=== PATIENT | female | born 1945 | race Caucasian/White ===

== ENCOUNTER 2021-02-14 03:28 | Inpatient (IN) | payer MEDICARE, SELFPAY ==
[2021-02-14] VITALS (24 sets, daily range): BP systolic 113–158; BP diastolic 56–85; PULSE 63–86; RESP 12–24; TEMP 36–37.4; O2SAT 94–100; BMI 24.0
--- NOTE | ~2021-02-14 | FL_ITS ---
EXAMINATION: XR FLUOROSCOPY WITH IMAGES CLINICAL INFORMATION: Left hip fracture COMPARISON: Left hip x-ray from earlier the same day TECHNIQUE: Fluoroscopy performed by Dr. Zamora Instremmanuel. Fluoroscopy time: 2.5 minutes DAP: 1.7 mGycm2 Images: 2 FINDINGS: Fluoroscopy guidance was provided for ORIF of left femoral neck fracture. There are 3 new orthopedic screws in the left proximal femur. Fracture appears unchanged. FL/FL guidance in OR IMPRESSION: Fluoroscopy guidance for ORIF of left femoral neck fracture.
--- NOTE | ~2021-02-14 | XR_ITS ---
EXAMINATION: XR LEFT HIP WITH AP PELVIS CLINICAL INFORMATION: Hip pain. COMPARISON: CT dated 08/31/2019 TECHNIQUE: AP and cross-table lateral views of the left hip and an AP view of the pelvis. FINDINGS: There is a valgus impacted subcapital fracture of the left femoral neck. Bones are osteopenic. No additional fractures are identified. Hip joints appear relatively well-preserved. Pubic symphysis and SI joints are unremarkable. Status post L5-S1 posterior instrumented fusion and interbody fusion. Soft tissues are unremarkable. XR/XR hip LT w PEL1V IMPRESSION: Valgus impacted subcapital left femoral fracture
--- NOTE | 2021-02-14 04:03 | ECG_ITS ---
Test Reason : FALL Blood Pressure : / mmHG Vent. Rate : 075 BPM Atrial Rate : 075 BPM P-R Int : 138 ms QRS Dur : 084 ms QT Int : 416 ms P-R-T Axes : 076 017 -03 degrees QTc Int : 464 ms Sinus rhythm with frequent Premature ventricular complexes Nonspecific ST abnormality Abnormal ECG When compared with ECG of 20-JUL-2017 16:32, Premature ventricular complexes are now Present Premature atrial complexes are no longer Present Referred By: Duane Diallo Electronically Signed By:Maxim Fitzgerald
[2021-02-14 04:10] LABS: Basophils Percent Auto 0.3 % (0-2); Eosinophils Absolute Auto 0.1 X10*3/uL (0.0-0.4); Eosinophils Percent Auto 0.8 % (0-4); Hematocrit 31.3 % (37-47); Hemoglobin 9.2 g/dl (12.0-16.0); Imm Gran Abs Auto 0.05 X10*3/uL (0.00-0.03); Imm Gran Pct Auto 0.6 % (0.0-0.4); Lymphocytes Absolute Auto 1.3 X10*3/uL (1.2-4.9); Lymphocytes Percent Auto 14.4 % (20-40); MANUAL DIFF FLAG NO; Mean Corpuscular HGB Conc 29.4 g/dl (31.0-35.0); Mean Corpuscular Hemoglobin 23.9 pg (27.0-33.0); Mean Corpuscular Volume 81.3 fL (80-98); Mean Platelet Volume 9.7 fL (9.4-12.3); Monocytes Absolute Auto 0.4 X10*3/uL (0.1-1.2); Monocytes Percent Auto 4.1 % (2-11); Neutrophils Absolute Auto 7.2 X10*3/uL (2.0-8.3); Neutrophils Percent Auto 79.8 % (45-73); Platelet Count 194 X10*3/uL (160-400); Red Blood Count 3.85 X10*6/uL (4.20-5.50); Red Cell Distribution Width 15.8 % (11.0-16.0); White Blood Count 9.1 X10*3/uL (4.8-10.8)
--- NOTE | 2021-02-14 04:10 | ED.GENADULT ---
HPI - General Adult General Chief complaint: General Medical Stated complaint: Left hip pain Time Seen by Provider: 02/14/21 03:59 Source: patient Mode of arrival: EMS Limitations: no limitations History of Present Illness HPI narrative: 75-year-old female who presents emergency department for evaluation of a fall and left hip pain. Patient states that she went to the bathroom around 2:00 a.m.. She states she was washing her hands at the sink and then turned and lost her balance causing her to fall to the floor. She landed on her left hip and developed immediate pain. She states she dragged herself out of the bathroom and was able to call her for help. She was unable to stand secondary to pain in her left hip and was transported to the emergency department for evaluation. Here in the emergency department, she denied any head injury or loss of consciousness. She states that her left shoulder hurts from dragging her body across the floor. She is complaining of severe, constant, sharp pain in the left hip which is worse with movement. She denied being ill in any way prior to falling. 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 Related Data Home Medications Medication Instructions Recorded Confirmed atorvastatin 1 tab PO DAILY 02/14/21 02/14/21 gabapentin 300 mg PO QD-TID 02/14/21 02/14/21 losartan 1 tab PO DAILY 02/14/21 02/14/21 metoprolol succinate 1 tab PO DAILY 02/14/21 02/14/21 omeprazole 1 cap PO BID 02/14/21 02/14/21 tramadol 1 tab PO 5XD 02/14/21 02/14/21 zolpidem 1 tab PO BEDTIME PRN 02/14/21 02/14/21 Allergies Allergy/AdvReac Type Severity Reaction Status Date / Time No Known Allergies Allergy Unverified 05/10/20 15:19 Review of Systems Review of Systems: Yes all other systems are reviewed and are negative [facility] Past Medical History [facility] Narrative: Social history: 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 She denies tobacco, alcohol and drug use. Medical History (Updated 02/14/21 @ 05:13 by Johana Warren) Cecum cancer Cervical pain (neck) High cholesterol Hypertension Lumbar back pain with radiculopathy affecting lower extremity Neuropathy Surgical History History of cervical spinal surgery History of lumbar surgery Social History Social History Alcohol intake: current Smoked in Last 30 Days: No Use of substances other than those prescribed or required for medical reasons: No Advance Directives: No Advance Directives Information Provided: No Physical Exam Vital Signs: Vital Signs: Last Vital Signs Temp 98.3 F 02/14/21 04:56 Pulse 76 02/14/21 04:56 Resp 18 02/14/21 04:56 BP 131/70 02/14/21 04:56 Pulse Ox 94 02/14/21 03:30 Body Mass Index 24.0 Const: General: cooperative Nutritional Appearance: overweight Orientation/consciousness: oriented to person and oriented to place Limitations: no limitations HENMT: Head: Yes normal to inspection, Yes normocephalic and Yes atraumatic Ears: external ears normal General nose exam: Normal external nose present Face and sinus: Yes normal facial exam Mouth: Normal oral and palatal mucosa present Throat: Yes posterior oropharynx normal Eyes: Periorbital: periorbital findings normal Eyelids: Yes eyelids normal Conjunctivae: conjunctivae normal Sclerae: sclerae normal Corneas: corneas normal Pupils: Equal, round and reactive pupils present Direct Ophthalmoscopy: normal light reflex Neck: Neck: Yes full ROM, Yes no lymphadenopathy, Yes no meningeal signs, Yes trachea midline and Yes supple Chest: Chest palpation & inspection: normal inspection of the chest and normal palpation of entire chest wall Resp: Effort & Inspection: normal respiratory effort and able to speak in complete sentences Auscultation: clear to auscultation bilaterally Cardio: Rate: regular rate Rhythm: regular rhythm Heart sounds: S1 normal heart sound present, S2 normal heart sound present and no murmurs GI: Inspection: Yes normal to inspection Palpation (GI): Soft to palpation, nontender, no guarding, not rigid and No hepatosplenomegaly present : General: Yes no CVA tenderness Back/Spine/Pelvis: Back: no CVA tenderness Cervical Spine: normal cervical lordosis Thoracic/Lumbar Spine: thoracic and lumbar spine normal to inspection Skin: Lesions: no lesions Rashes: no rashes Wounds: no wounds Neuro: General: oriented to person, oriented to place and no meningeal signs Cranial nerves: Yes CN's II-XII intact bilaterally and Yes Equal, round and reactive pupils present Cognition (Neuro): normal cognition Motor exam (neuro): 5/5 motor strength present throughout Extrem: Other: The patient has significant pain with minimal movement of her left hip, her hip is neurovascular intact Psych: Appearance: well kempt Mental Status: mental status grossly normal Speech and movement: Normal speech and movement present Affect: normal affect Attitude: cooperative Thought process: Normal thought process present Thought content: Normal thought content present Course Course Course Narrative: 75-year-old female who presents emergency department for evaluation of a fall that occurred in her bathroom. Patient reports losing her balance and fall onto the floor. She then dragged herself are the bathroom in order to call her . Here in the emergency department the patient has significant pain with minimal movement of her left hip. I did order a laboratory evaluation to include a CBC, CMP, PT/INR, PTT, EKG, left hip x-ray. Patient was ordered to get morphine 4 mg IV for pain. 0550: The patient required more pain medication. She got morphine 4 mg IV and Dilaudid 0.5 mg IV. Patient's laboratory evaluation revealed anemia with an H&H of 9.2 and 31.3. I did discuss the patient's presentation with the physician neurology physician assistant covering the orthopedic service, Ayaz Clark who will consult on the patient and requested that the patient be admitted to the hospitalist service. I will discuss the patient's presentation with the hospitalist. Medical Decision Making Lab Data Result diagrams: 02/14/21 04:00 02/14/21 04:00 Labs: Lab Results 02/14/21 02/14/21 02/14/21 Range/Units 04:00 04:00 04:00 WBC 9.1 (4.8-10.8) X10*3/uL RBC 3.85 L (4.20-5.50) X10*6/uL Hgb 9.2 L (12.0-16.0) g/dl Hct 31.3 L (37-47) % MCV 81.3 (80-98) fL MCH 23.9 L (27.0-33.0) pg MCHC 29.4 L (31.0-35.0) g/dl RDW 15.8 (11.0-16.0) % Plt Count 194 (160-400) X10*3/uL MPV 9.7 (9.4-12.3) fL Immature Gran % (Auto) 0.6 H (0.0-0.4) % Neut % (Auto) 79.8 H (45-73) % Lymph % (Auto) 14.4 L (20-40) % [place] % (Auto) 4.1 (2-11) % Eos % (Auto) 0.8 (0-4) % Baso % (Auto) 0.3 (0-2) % Lymph # (Auto) 1.3 (1.2-4.9) X10*3/uL [place] # (Auto) 0.4 (0.1-1.2) X10*3/uL Eos # (Auto) 0.1 (0.0-0.4) X10*3/uL Baso # (Auto) 0.0 (0.0-0.2) X10*3/uL Abs Immat Gran (auto) 0.05 H (0.00-0.03) X10*3/uL Absolute Neuts (auto) 7.2 (2.0-8.3) X10*3/uL Absolute Nucleated RBC 0.000 (0.0-0.012) X10*3/uL Nucleated RBC % (auto) 0.0 (0.0-0.2) /100WBC PT 11.2 (10.8-13.0) SEC INR 0.9 (0.9-1.1) APTT 36.7 (24.1-38.0) SEC Sodium 141 (135-145) mmol/L Potassium 3.8 (3.3-5.1) mmol/L Chloride 105 (96-108) mmol/L Carbon Dioxide 28 (22-29) mmol/L Anion Gap 12 (12-20) BUN 13 (9-16) mg/dL Creatinine 0.86 (0.5-1.4) mg/dL Estim Creat Clear Calc 57.0 Estimated GFR > 60 Random Glucose 112 (60-115) mg/dL Calcium 9.3 (8.4-10.2) mg/dL Total Bilirubin 0.4 (0.0-1.0) mg/dL AST 17 (5-31) U/L ALT 9 (0-31) U/L Alkaline Phosphatase 91 (39-117) U/L Total Protein 6.8 (6.5-8.0) g/dL Albumin 4.3 (3.5-5.0) g/dL Lipase 20 (8-78) U/L Ethyl Alcohol mg/dL COVID-19 (JODY) (Negative) COVID-19 Clin Com 02/14/21 02/14/21 Range/Units 04:00 04:20 WBC (4.8-10.8) X10*3/uL RBC (4.20-5.50) X10*6/uL Hgb (12.0-16.0) g/dl Hct (37-47) % MCV (80-98) fL MCH (27.0-33.0) pg MCHC (31.0-35.0) g/dl RDW (11.0-16.0) % Plt Count (160-400) X10*3/uL MPV (9.4-12.3) fL Immature Gran % (Auto) (0.0-0.4) % Neut % (Auto) (45-73) % Lymph % (Auto) (20-40) % [place] % (Auto) (2-11) % Eos % (Auto) (0-4) % Baso % (Auto) (0-2) % Lymph # (Auto) (1.2-4.9) X10*3/uL [place] # (Auto) (0.1-1.2) X10*3/uL Eos # (Auto) (0.0-0.4) X10*3/uL Baso # (Auto) (0.0-0.2) X10*3/uL Abs Immat Gran (auto) (0.00-0.03) X10*3/uL Absolute Neuts (auto) (2.0-8.3) X10*3/uL Absolute Nucleated RBC (0.0-0.012) X10*3/uL Nucleated RBC % (auto) (0.0-0.2) /100WBC PT (10.8-13.0) SEC INR (0.9-1.1) APTT (24.1-38.0) SEC Sodium (135-145) mmol/L Potassium (3.3-5.1) mmol/L Chloride (96-108) mmol/L Carbon Dioxide (22-29) mmol/L Anion Gap (12-20) BUN (9-16) mg/dL Creatinine (0.5-1.4) mg/dL Estim Creat Clear Calc Estimated GFR Random Glucose (60-115) mg/dL Calcium (8.4-10.2) mg/dL Total Bilirubin (0.0-1.0) mg/dL AST (5-31) U/L ALT (0-31) U/L Alkaline Phosphatase (39-117) U/L Total Protein (6.5-8.0) g/dL Albumin (3.5-5.0) g/dL Lipase (8-78) U/L Ethyl Alcohol < 10 mg/dL COVID-19 (JODY) Negative (Negative) COVID-19 Clin Com See Note Discharge Plan Discharge Prescriptions: No Action losartan 50 mg tablet 1 tab PO DAILY RF: 0 atorvastatin 20 mg tablet 1 tab PO DAILY RF: 0 omeprazole 40 mg capsule,delayed release(DR/EC) 1 cap PO BID RF: 0 tramadol 50 mg tablet 1 tab PO 5XD RF: 0 gabapentin 300 mg capsule 300 mg PO QD-TID RF: 0 metoprolol succinate 25 mg tablet extended release 24 hr 1 tab PO DAILY RF: 0 zolpidem 10 mg tablet 1 tab PO BEDTIME PRN (Reason: Insomnia) RF: 0
[2021-02-14] MEDS: 0.9 % Sodium Chloride 1,000 ML 999 ML IV (04:12)
[2021-02-14] MEDS: Morphine Sulfate 4 MG/ML CARTRIDGE IVPUSH ×2 (04:12→05:01)
[2021-02-14 04:16] LABS: INTERNATIONAL NORM RATIO 0.9 (0.9-1.1); Prothrombin Time 11.2 SEC (10.8-13.0)
[2021-02-14 04:19] LABS: Partial Thromboplastin Time 36.7 SEC (24.1-38.0)
[2021-02-14 04:35] LABS: Ethanol < 10 mg/dL
[2021-02-14 04:40] LABS: Alanine Aminotransferase 9 U/L (0-31); Albumin Level 4.3 g/dL (3.5-5.0); Alkaline Phosphatase 91 U/L (39-117); Anion Gap 12 (12-20); Aspartate Amino Transferase 17 U/L (5-31); Bilirubin Total 0.4 mg/dL (0.0-1.0); Blood Urea Nitrogen 13 mg/dL (9-16); Calcium 9.3 mg/dL (8.4-10.2); Carbon Dioxide 28 mmol/L (22-29); Chloride 105 mmol/L (96-108); Estimated Glomerular Filt Rate > 60; Glucose Random 112 mg/dL (60-115); Lipase 20 U/L (8-78); Potassium 3.8 mmol/L (3.3-5.1); Sodium 141 mmol/L (135-145); Total Protein 6.8 g/dL (6.5-8.0)
[2021-02-14 04:44] LABS: COVID-19 Test Negative (Negative); IDNOW Serial# 9DD0AD1C
--- NOTE | 2021-02-14 05:05 | PC.NURSE ---
pt placed on 1l n=of o2 via nc for comfort
[2021-02-14] MEDS: HYDROmorphone HCl 0.5 MG/0.5 ML SYRINGE IVPUSH ×4 (05:54→19:43)
[2021-02-14 06:10] LABS: Glucose Urine UA NEG (NEG); Leukocyte Esterase Urine NEG (NEG); Nitrite Urine NEG (NEG); Specific Gravity - Urine 1.015 (1.005-1.025); Urine Blood NEG (NEG); Urine Ketones NEG (NEG); Urine Protein NEG (NEG-TRACE)
[2021-02-14 06:11] LABS: Appearance Urine CLEAR; Color Urine STRAW; UACC Culture Trigger NO
--- NOTE | 2021-02-14 07:48 | PM.IMHP ---
History of Present Illness Date of Service: 02/14/21 Chief Complaint: fall, left hip pain 75F presented after mechanical fall with complaint of left hip pain. At 2am on day of presentation, patient was in restroom, while turning she lost balance and fell on left side. she did not hit her head or lose conciousness. she was able to call for help. in ED she was found to have left femoral fracture. she denies chest pain, sob, fever, chills. Review of Systems Review of Systems: Constitutional: Denies fever, denies Chills Eyes: denies blurry vision ENT: denies sore throat CVS: denies chest pain Respiratory: Denies dyspnea GI: chronic constipation : denies dysuria MSK: chronic neck pain Skin: denies rash Neuro: denies specific motor weakness Psych: denies suicidal ideation Endocrine: denies heat/cold intoleratnce Hematologic: denies easy bleeding Allergy: denies hives PMFSH Medical History Cecum cancer Cervical pain (neck) High cholesterol Hypertension Lumbar back pain with radiculopathy affecting lower extremity Neuropathy Family history: reviewed and not pertinent Surgical History History of cervical spinal surgery History of lumbar surgery Social History Alcohol intake: current Smoked in Last 30 Days: No Use of substances other than those prescribed or required for medical reasons: No Advance Directives: No Advance Directives Information Provided: No Meds Allergies Allergy/AdvReac Type Severity Reaction Status Date / Time No Known Allergies Allergy Unverified 05/10/20 15:19 Home Medications Medication Instructions Recorded Confirmed Last Taken Type atorvastatin 1 tab PO DAILY 02/14/21 02/14/21 Unknown History gabapentin 300 mg PO Q4-5H PRN 02/14/21 02/14/21 Unknown History lactulose 20 g PO DAILY 02/14/21 02/14/21 Unknown History losartan 1 tab PO DAILY 02/14/21 02/14/21 Unknown History metoprolol succinate 1 tab PO DAILY 02/14/21 02/14/21 Unknown History omeprazole 1 cap PO BID 02/14/21 02/14/21 Unknown History tramadol 1 tab PO 5XD 02/14/21 02/14/21 Unknown History zolpidem 1 tab PO BEDTIME PRN 02/14/21 02/14/21 Unknown History Physical Exam Vital Signs and Narrative: Vital Signs: Last Vital Signs Temp 98.3 F 02/14/21 04:56 Pulse 80 02/14/21 05:56 Resp 12 02/14/21 05:56 BP 157/57 H 02/14/21 05:56 Pulse Ox 96 02/14/21 05:56 Body Mass Index 24.0 General: no acute distress HEENT: atraumatic Neck: normal to visual inspection CVS: S1, S2, RRR Resp: CTA bilateral Chest: non tender GI: soft, non tender, non distended : no CVA tenderness Skin: no rashes Extremities: no edema Neuro: Oriented X3, grossly intact Psych: cooperative Results Labs CBC and Chem 7: 02/14/21 04:00 02/14/21 04:00 Labs: Laboratory Results - last 24 hr 02/14/21 02/14/21 02/14/21 04:00 04:00 04:00 MCV 81.3 MCH 23.9 L MCHC 29.4 L RDW 15.8 Plt Count 194 MPV 9.7 Immature Gran % (Auto) 0.6 H Neut % (Auto) 79.8 H Lymph % (Auto) 14.4 L [place] % (Auto) 4.1 Eos % (Auto) 0.8 Baso % (Auto) 0.3 Lymph # (Auto) 1.3 [place] # (Auto) 0.4 Eos # (Auto) 0.1 Baso # (Auto) 0.0 Abs Immat Gran (auto) 0.05 H Absolute Neuts (auto) 7.2 Absolute Nucleated RBC 0.000 Nucleated RBC % (auto) 0.0 PT 11.2 INR 0.9 APTT 36.7 Anion Gap 12 Estim Creat Clear Calc 57.0 Estimated GFR > 60 Random Glucose 112 Calcium 9.3 Total Bilirubin 0.4 AST 17 ALT 9 Alkaline Phosphatase 91 Total Protein 6.8 Albumin 4.3 Lipase 20 Urine Color Urine Appearance Urine pH Ur Specific [place] Urine Protein Urine Glucose (UA) Urine Ketones Urine Blood Urine Nitrite Ur Leukocyte Esterase Ethyl Alcohol COVID-19 (JODY) COVID-19 Clin Com Blood Type Antibody Screen 02/14/21 02/14/21 02/14/21 04:00 04:20 05:59 MCV MCH MCHC RDW Plt Count MPV Immature Gran % (Auto) Neut % (Auto) Lymph % (Auto) [place] % (Auto) Eos % (Auto) Baso % (Auto) Lymph # (Auto) [place] # (Auto) Eos # (Auto) Baso # (Auto) Abs Immat Gran (auto) Absolute Neuts (auto) Absolute Nucleated RBC Nucleated RBC % (auto) PT INR APTT Anion Gap Estim Creat Clear Calc Estimated GFR Random Glucose Calcium Total Bilirubin AST ALT Alkaline Phosphatase Total Protein Albumin Lipase Urine Color STRAW Urine Appearance CLEAR Urine pH 7.0 Ur Specific [place] 1.015 Urine Protein NEG Urine Glucose (UA) NEG Urine Ketones NEG Urine Blood NEG Urine Nitrite NEG Ur Leukocyte Esterase NEG Ethyl Alcohol < 10 COVID-19 (JODY) Negative COVID-19 Clin Com See Note Blood Type Antibody Screen 02/14/21 06:43 MCV MCH MCHC RDW Plt Count MPV Immature Gran % (Auto) Neut % (Auto) Lymph % (Auto) [place] % (Auto) Eos % (Auto) Baso % (Auto) Lymph # (Auto) [place] # (Auto) Eos # (Auto) Baso # (Auto) Abs Immat Gran (auto) Absolute Neuts (auto) Absolute Nucleated RBC Nucleated RBC % (auto) PT INR APTT Anion Gap Estim Creat Clear Calc Estimated GFR Random Glucose Calcium Total Bilirubin AST ALT Alkaline Phosphatase Total Protein Albumin Lipase Urine Color Urine Appearance Urine pH Ur Specific [place] Urine Protein Urine Glucose (UA) Urine Ketones Urine Blood Urine Nitrite Ur Leukocyte Esterase Ethyl Alcohol COVID-19 (JODY) COVID-19 Clin Com Blood Type O Positive Antibody Screen NEGATIVE Imaging Radiologist's Impressions: Impressions Hip/Pelvis X-Ray 02/14/21 03:45 IMPRESSION: Valgus impacted subcapital left femoral fracture Assessment and Plan (1) Closed subcapital fracture of left femur: Qualifiers: Encounter type: initial encounter Qualified Code(s): S72.012A - Unspecified intracapsular fracture of left femur, initial encounter for closed fracture Status: Acute 75F presented with mechancial fall, found to have left femoral fracture mechanical fall, left hip fracture pain control ortho eval patient is moderate risk for surgery, benefits outweigh risks, would pursue without further workup, will hold losartan, continue metoprolol htn will hold losartan preoperatively continue metoprolol hld statin 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
--- NOTE | 2021-02-14 08:30 | P.CONOP_ITS ---
History of Present Illness HPI Consult date: 02/14/21 Chief complaint: Hip Fracture Narrative: This is a 75-year-old female who presented to the emergency department after sustaining a fall in her home. She landed on the left side and was unable to get up and ambulate therefore she crawled out of the bathroom to her who called EMS and the patient was transported to the emergency department. Upon examination and x-rays the patient was found to have a left femoral neck fracture. She was admitted to the hospital service and Orthopedics was consulted for further recommendations. Review of Systems Review of Systems: Yes all other systems are reviewed and are negative [facility] Past Medical History Medical History Cecum cancer Cervical pain (neck) High cholesterol Hypertension Lumbar back pain with radiculopathy affecting lower extremity Neuropathy Family History Family history: reviewed and not pertinent Surgical History Surgical History History of cervical spinal surgery History of lumbar surgery Social History Social History Alcohol intake: current Smoked in Last 30 Days: No Use of substances other than those prescribed or required for medical reasons: No Advance Directives: No Advance Directives Information Provided: No Meds Allergies Allergy/AdvReac Type Severity Reaction Status Date / Time No Known Allergies Allergy Unverified 05/10/20 15:19 Active Medications: Current Medications Generic Name Dose Route Start Last Admin Trade Name Freq PRN Reason Stop Dose Admin Acetaminophen 650 mg 02/14/21 08:01 Acetaminophen 325 Mg Tablet PO Q6H PRN Pain, Mild (Pain Scale 1-3) Atorvastatin Calcium 20 mg 02/14/21 21:00 Atorvastatin Calcium 20 Mg Tablet PO BEDTIME ISAIAH Gabapentin 300 mg 02/14/21 08:01 Gabapentin 300 Mg Capsule PO Q4H PRN Pain Hydromorphone HCl 0.5 mg 02/14/21 08:01 Hydromorphone Hcl 0.5 Mg/0.5 Ml Syringe IVPUSH Q2H PRN pain Lactulose 20 gm 02/14/21 09:00 Lactulose 20 Gm/30 Ml Solution PO DAILY ISAIAH Metoprolol Succinate 25 mg 02/14/21 09:00 Metoprolol Succinate Er 25 Mg Tab.Er.24h PO DAILY [facility] Protocol Omeprazole 40 mg 06/24/21 09:00 Omeprazole 40 Mg Capsule.Dr PO BID@0630,1630 [facility] Sodium Chloride 3 ml 02/14/21 08:01 0.9 % Sodium Chloride Flush 3 Ml Syringe IVFLUSH QSHIFT [facility] Tramadol HCl 50 mg 02/14/21 10:00 Tramadol Hcl 50 Mg Tablet PO 5XD [facility] Zolpidem Tartrate 5 mg 02/14/21 08:01 Zolpidem Tartrate 5 Mg Tablet PO BEDTIME PRN Insomnia Home Medications Medication Instructions Recorded Confirmed Last Taken Type atorvastatin 1 tab PO DAILY 02/14/21 02/14/21 Unknown History gabapentin 300 mg PO Q4-5H PRN 02/14/21 02/14/21 Unknown History lactulose 20 g PO DAILY 02/14/21 02/14/21 Unknown History losartan 1 tab PO DAILY 02/14/21 02/14/21 Unknown History metoprolol succinate 1 tab PO DAILY 02/14/21 02/14/21 Unknown History omeprazole 1 cap PO BID 02/14/21 02/14/21 Unknown History tramadol 1 tab PO 5XD 02/14/21 02/14/21 Unknown History zolpidem 1 tab PO BEDTIME PRN 02/14/21 02/14/21 Unknown History Physical Exam Vital Signs: Vital Signs: Last Vital Signs Temp 98.3 F 02/14/21 04:56 Pulse 78 02/14/21 08:10 Resp 14 02/14/21 08:10 BP 113/56 L 02/14/21 08:10 Pulse Ox 95 02/14/21 08:10 Body Mass Index 24.0 Const: General: cooperative, healthy appearing, comfortable, no acute distress, well developed and alert Orientation/consciousness: patient oriented x3 HENMT: Head: Yes normal to inspection, Yes normocephalic and Yes atraumatic Eyes: General: appearance normal, both eyes and all related structures Neck: Neck: Yes normal visual inspection and Yes no lymphadenopathy Resp: Effort & Inspection: normal respiratory effort and able to speak in complete sentences Cardio: Rate: regular rate Peripheral pulses: Peripheral pulses 2+ throughout GI: Inspection: Yes normal to inspection Palpation (GI): Soft to palpation Skin: General skin exam: no rashes or lesions noted Neuro: General: patient oriented x3 Extrem: Other: Left hip skin intact. There is tenderness over the lateral aspect the hip and the foot is externally rotated. Pain with log roll. Peripheral pulses present. Valgus impacted subcapital left femoral fracture Psych: Appearance: grossly normal Mental Status: mental status grossly normal Results Labs Result Diagrams: 02/14/21 04:00 02/14/21 04:00 Labs: Abnormal lab results 02/14/21 Range/Units 04:00 RBC 3.85 L (4.20-5.50) X10*6/uL Hgb 9.2 L (12.0-16.0) g/dl Hct 31.3 L (37-47) % MCH 23.9 L (27.0-33.0) pg MCHC 29.4 L (31.0-35.0) g/dl Immature Gran % (Auto) 0.6 H (0.0-0.4) % Neut % (Auto) 79.8 H (45-73) % Lymph % (Auto) 14.4 L (20-40) % Abs Immat Gran (auto) 0.05 H (0.00-0.03) X10*3/uL H & H 02/14/21 Range/Units 04:00 Hgb 9.2 L (12.0-16.0) g/dl Hct 31.3 L (37-47) % Coagulation 02/14/21 Range/Units 04:00 INR 0.9 (0.9-1.1) All other labs normal. Assessment and Plan (1) Closed subcapital fracture of left femur: Qualifiers: Encounter type: initial encounter Qualified Code(s): S72.012A - Unspecified intracapsular fracture of left femur, initial encounter for closed fracture Status: Acute I discussed the case with Dr. Zee and explained the extent of the injury to the patient and options available which include surgical intervention. I explained the procedure in detail along with the length of recovery and rehab course. I explained the risk, benefits and alternatives. Risk including, but not limited to infection, blood clots, bleeding, non union or malunion and nerve/tissue damage to surrounding areas. I answered all their questions and with their understanding they have consented to move forward with Operative Fixation of left. The patient with be T&S, med clearance obtained and NPO after midnight. Procedures Date of Service Date of Service: 02/14/21
--- NOTE | 2021-02-14 09:31 | PC.NURSE ---
PT IS GOING TO SHORT STAY SURG, REPORT GIVEN TO RN. OFFERED TO CHANGE AND REPOSITION PT BEFORE HEADING TO OR SHE REFUSED STATING SHE IS COMFORTABLE AT THIS TIME. [facility] EMPTIED FOR 750CC PRIOR TO LEAVING ED
--- NOTE | 2021-02-14 09:39 | HO.ANESPROP2 ---
[facility] Active Problems Active Problems: All Active Problems (Updated 02/14/21 @ 07:27 by Edwardo Aguila MD) High cholesterol (Acute) Hypertension (Acute) Fall (Acute) Closed subcapital fracture of left femur (Acute) Past Medical History Medical History Cecum cancer Cervical pain (neck) High cholesterol Hypertension Lumbar back pain with radiculopathy affecting lower extremity Neuropathy Surgical History Surgical History History of cervical spinal surgery History of lumbar surgery Social History Social History Alcohol intake: current Alcohol intake frequency: does not drink Patient Tobacco Use Status: Never used Tobacco Smoked in Last 30 Days: No Use of substances other than those prescribed or required for medical reasons: No Are you DNR?: No Advance Directives: No Advance Directives Information Provided: No Meds Allergies Allergy/AdvReac Type Severity Reaction Status Date / Time No Known Allergies Allergy Unverified 05/10/20 15:19 Active Medications: Current Medications Generic Name Dose Route Start Last Admin Trade Name Freq PRN Reason Stop Dose Admin Acetaminophen 650 mg 02/14/21 08:01 Acetaminophen 325 Mg Tablet PO Q6H PRN Pain, Mild (Pain Scale 1-3) Atorvastatin Calcium 20 mg 02/14/21 21:00 Atorvastatin Calcium 20 Mg Tablet PO BEDTIME ISAIAH Gabapentin 300 mg 02/14/21 08:01 Gabapentin 300 Mg Capsule PO Q4H PRN Pain Hydromorphone HCl 0.5 mg 02/14/21 08:01 Hydromorphone Hcl 0.5 Mg/0.5 Ml Syringe IVPUSH Q2H PRN pain Lactulose 20 gm 02/14/21 09:00 Lactulose 20 Gm/30 Ml Solution PO DAILY [facility] Metoprolol Succinate 25 mg 02/14/21 09:00 Metoprolol Succinate Er 25 Mg Tab.Er.24h PO DAILY [facility] Protocol Omeprazole 40 mg 02/14/21 09:00 Omeprazole 40 Mg Capsule.Dr PO BID@0630,1630 ISAIAH Sodium Chloride 3 ml 02/14/21 08:01 0.9 % Sodium Chloride Flush 3 Ml Syringe IVFLUSH QSHIFT ISAIAH Tramadol HCl 50 mg 02/14/21 10:00 Tramadol Hcl 50 Mg Tablet PO 5XD ISAIAH Zolpidem Tartrate 5 mg 02/14/21 08:01 Zolpidem Tartrate 5 Mg Tablet PO BEDTIME PRN Insomnia Home Medications Medication Instructions Recorded Confirmed Last Taken Type atorvastatin 1 tab PO DAILY 02/14/21 02/14/21 Unknown History gabapentin 300 mg PO Q4-5H PRN 02/14/21 02/14/21 Unknown History lactulose 20 g PO DAILY 02/14/21 02/14/21 Unknown History losartan 1 tab PO DAILY 02/14/21 02/14/21 Unknown History metoprolol succinate 1 tab PO DAILY 02/14/21 02/14/21 Unknown History omeprazole 1 cap PO BID 02/14/21 02/14/21 Unknown History tramadol 1 tab PO 5XD 02/14/21 02/14/21 Unknown History zolpidem 1 tab PO BEDTIME PRN 02/14/21 02/14/21 Unknown History Exam Exam Date and Time: February 14, 2021 0939 Height,Weight and Vital Signs: Height 5 ft 8 in Weight 71.6 kg Last Vital Signs Temp 98.3 F 02/14/21 04:56 Pulse 78 02/14/21 08:10 Resp 14 02/14/21 08:10 BP 113/56 L 02/14/21 08:10 Pulse Ox 95 02/14/21 08:10 Pertinent Lab Results Pertinent Lab Results: Laboratory Tests 02/14/21 02/14/21 02/14/21 04:00 04:00 04:00 WBC 9.1 RBC 3.85 L Hgb 9.2 L Hct 31.3 L MCV 81.3 MCH 23.9 L MCHC 29.4 L RDW 15.8 Plt Count 194 MPV 9.7 Immature Gran % (Auto) 0.6 H Neut % (Auto) 79.8 H Lymph % (Auto) 14.4 L Lipscomb % (Auto) 4.1 Eos % (Auto) 0.8 Baso % (Auto) 0.3 Lymph # (Auto) 1.3 Lipscomb # (Auto) 0.4 Eos # (Auto) 0.1 Baso # (Auto) 0.0 Abs Immat Gran (auto) 0.05 H Absolute Neuts (auto) 7.2 Absolute Nucleated RBC 0.000 Nucleated RBC % (auto) 0.0 PT 11.2 INR 0.9 APTT 36.7 Sodium 141 Potassium 3.8 Chloride 105 Carbon Dioxide 28 Anion Gap 12 BUN 13 Creatinine 0.86 Estim Creat Clear Calc 57.0 Estimated GFR > 60 Random Glucose 112 Calcium 9.3 Total Bilirubin 0.4 AST 17 ALT 9 Alkaline Phosphatase 91 Total Protein 6.8 Albumin 4.3 Lipase 20 Urine Color Urine Appearance Urine pH Ur Specific Jasper Urine Protein Urine Glucose (UA) Urine Ketones Urine Blood Urine Nitrite Ur Leukocyte Esterase Ethyl Alcohol COVID-19 (JODY) COVID-19 Clin Com Blood Type Antibody Screen 02/14/21 02/14/21 02/14/21 04:00 04:20 05:59 WBC RBC Hgb Hct MCV MCH MCHC RDW Plt Count MPV Immature Gran % (Auto) Neut % (Auto) Lymph % (Auto) Lipscomb % (Auto) Eos % (Auto) Baso % (Auto) Lymph # (Auto) Lipscomb # (Auto) Eos # (Auto) Baso # (Auto) Abs Immat Gran (auto) Absolute Neuts (auto) Absolute Nucleated RBC Nucleated RBC % (auto) PT INR APTT Sodium Potassium Chloride Carbon Dioxide Anion Gap BUN Creatinine Estim Creat Clear Calc Estimated GFR Random Glucose Calcium Total Bilirubin AST ALT Alkaline Phosphatase Total Protein Albumin Lipase Urine Color STRAW Urine Appearance CLEAR Urine pH 7.0 Ur Specific Jasper 1.015 Urine Protein NEG Urine Glucose (UA) NEG Urine Ketones NEG Urine Blood NEG Urine Nitrite NEG Ur Leukocyte Esterase NEG Ethyl Alcohol < 10 COVID-19 (JODY) Negative COVID-19 Clin Com See Note Blood Type Antibody Screen 02/14/21 06:43 WBC RBC Hgb Hct MCV MCH MCHC RDW Plt Count MPV Immature Gran % (Auto) Neut % (Auto) Lymph % (Auto) Lipscomb % (Auto) Eos % (Auto) Baso % (Auto) Lymph # (Auto) Lipscomb # (Auto) Eos # (Auto) Baso # (Auto) Abs Immat Gran (auto) Absolute Neuts (auto) Absolute Nucleated RBC Nucleated RBC % (auto) PT INR APTT Sodium Potassium Chloride Carbon Dioxide Anion Gap BUN Creatinine Estim Creat Clear Calc Estimated GFR Random Glucose Calcium Total Bilirubin AST ALT Alkaline Phosphatase Total Protein Albumin Lipase Urine Color Urine Appearance Urine pH Ur Specific Jasper Urine Protein Urine Glucose (UA) Urine Ketones Urine Blood Urine Nitrite Ur Leukocyte Esterase Ethyl Alcohol COVID-19 (JODY) COVID-19 Clin Com Blood Type O Positive Antibody Screen NEGATIVE Airway Mallampati Class: II TM Dist: >3cm Neck ROM: Full Heart: RRR Lungs: CTA
--- NOTE | 2021-02-14 09:50 | MHC.SHP ---
Pre-Procedural Eval Section A Date of Service: 02/14/21 The patient is an INPATIENT: Yes Section B Chief Complaint: Hip Fracture Allergies: Allergies Allergy/AdvReac Type Severity Reaction Status Date / Time No Known Allergies Allergy Unverified 05/10/20 15:19 Plan I have reviewed the history and physical and performed a pertinent physical examination on my patient. No changes have occurred unless specified.
--- NOTE | 2021-02-14 10:01 | PC.NURSE ---
Patient arrived at [facility]. #20 IV in Left AC and #22 IV in Left hand. Both sites asymptomatic and flushed with no issues.
--- NOTE | 2021-02-14 10:16 | PC.NURSE ---
Patient arrived at [facility] wearing two gold rings on left hand. Per patient, can not be removed.
--- NOTE | 2021-02-14 10:59 | PC.NURSE ---
pt resting quietly. easily arousable. pt states does not wear 02 at home. states 02 applied in er when she got dilaudid. 02 off to monitor. pt resting with eyes closed resp easy and reg. but sats dropped to 85%. 02 -2l n/c applied. pt resting quietly. no distress noted/reported at this time
[2021-02-14] MEDS: oxyCODONE HCl Immed Release 5 MG TABLET PO (16:44)
[2021-02-14] MEDS: fentaNYL citrate/PF 100 MCG/2 ML VIAL IVPUSH (16:48)
[2021-02-14] MEDS: Omeprazole 40 MG CAPSULE.DR PO (17:36)
[2021-02-14] MEDS: ceFAZolin Sodium/Dextrose,Iso 2 GM/50 ML PIGGYBACK IV (17:37)
[2021-02-14] MEDS: 0.9 % Sodium Chloride Flush 3 ML SYRINGE IVFLUSH ×2 (17:37)
[2021-02-14] MEDS: traMADoL HCL 50 MG TABLET PO ×2 (18:02→21:12)
[2021-02-14] MEDS: Metoprolol Succinate ER 25 MG TAB.ER.24H PO (19:45)
[2021-02-14] MEDS: Gabapentin 300 MG CAPSULE PO (19:50)
[2021-02-14] MEDS: Atorvastatin Calcium 20 MG TABLET PO (21:12)
[2021-02-14] MEDS: Zolpidem Tartrate 5 MG TABLET PO (21:12)
[2021-02-15] VITALS (9 sets, daily range): BP systolic 107–164; BP diastolic 58–83; PULSE 62–90; RESP 15–20; TEMP 35.8–36.9; O2SAT 92–100
[2021-02-15] MEDS: 0.9 % Sodium Chloride Flush 3 ML SYRINGE IVFLUSH ×6 (00:41→20:35)
[2021-02-15] MEDS: HYDROmorphone HCl 0.5 MG/0.5 ML SYRINGE IVPUSH ×6 (03:16→20:35)
[2021-02-15] MEDS: traMADoL HCL 50 MG TABLET PO ×3 (06:31→18:06)
[2021-02-15] MEDS: Omeprazole 40 MG CAPSULE.DR PO ×2 (06:31→17:22)
[2021-02-15 06:46] LABS: Hematocrit 28.4 % (37-47); Hemoglobin 8.3 g/dl (12.0-16.0); Mean Corpuscular HGB Conc 29.2 g/dl (31.0-35.0); Mean Corpuscular Hemoglobin 23.4 pg (27.0-33.0); Mean Corpuscular Volume 80.2 fL (80-98); Mean Platelet Volume 10.3 fL (9.4-12.3); Platelet Count 169 X10*3/uL (160-400); Red Blood Count 3.54 X10*6/uL (4.20-5.50); Red Cell Distribution Width 15.7 % (11.0-16.0); White Blood Count 10.2 X10*3/uL (4.8-10.8)
[2021-02-15 07:27] LABS: Anion Gap 12 (12-20); Blood Urea Nitrogen 11 mg/dL (9-16); Calcium 9.1 mg/dL (8.4-10.2); Carbon Dioxide 28 mmol/L (22-29); Chloride 106 mmol/L (96-108); Estimated Glomerular Filt Rate > 60; Glucose Random 126 mg/dL (60-115); Potassium 4.8 mmol/L (3.3-5.1); Sodium 141 mmol/L (135-145)
[2021-02-15] MEDS: Lactulose 20 GM/30 ML SOLUTION PO (07:53)
[2021-02-15] MEDS: Metoprolol Succinate ER 25 MG TAB.ER.24H PO (07:53)
--- NOTE | 2021-02-15 08:17 | PM.PNORT ---
Subjective Subjective Date of Service: 02/15/21 Interval history: POD1 s/p left hip canulared screws with Dr. Zee. Patient is resting comfortably in bed. No overnight events. Pain is well managed. No additional complaints. Physical Exam Vital Signs: Vital Signs: Last Vital Signs Temp 98.4 F 02/15/21 08:00 Pulse 74 02/15/21 08:00 Resp 18 02/15/21 08:00 BP 140/83 H 02/15/21 08:00 Pulse Ox 98 02/15/21 08:00 Body Mass Index 24.0 Const: General: cooperative, healthy appearing and no acute distress Resp: Effort & Inspection: normal respiratory effort and able to speak in complete sentences Cardio: Rate: regular rate Peripheral pulses: Peripheral pulses 2+ throughout GI: Palpation (GI): Soft to palpation Skin: Lesions: no lesions Rashes: no rashes Extrem: Other: Left hip bandage is clean, dry, and intact. No redness, ecchymosis, or drainage. NVI. Progress Note: A&P Assessment and plan (1) Closed subcapital fracture of left femur: Status: Acute Assessment and Plan: Continue pain mgmnt Begin Aspirin dvt ppx begin PT for left hip canulated screws Dispo planning-Pending PT eval, pain mgmnt Fall Risk Details Current Medications: Current Medications Generic Name Dose Route Start Last Admin Trade Name Freq PRN Reason Stop Dose Admin Acetaminophen 650 mg 02/14/21 08:01 Acetaminophen 325 Mg Tablet PO Q6H PRN Pain, Mild (Pain Scale 1-3) Aspirin 325 mg 02/15/21 21:10 Aspirin 325 Mg Tablet PO BID ISAIAH Atorvastatin Calcium 20 mg 02/14/21 21:00 02/14/21 21:12 Atorvastatin Calcium 20 Mg Tablet PO 20 mg BEDTIME ISAIAH Administration Gabapentin 300 mg 02/14/21 08:01 02/14/21 19:50 Gabapentin 300 Mg Capsule PO 300 mg Q4H PRN Administration Pain Hydromorphone HCl 0.5 mg 02/14/21 08:01 02/15/21 08:03 Hydromorphone Hcl 0.5 Mg/0.5 Ml Syringe IVPUSH 0.5 mg Q2H PRN Administration pain Lactulose 20 gm 02/14/21 09:00 02/15/21 07:53 Lactulose 20 Gm/30 Ml Solution PO 20 gm DAILY ISAIAH Administration Metoprolol Succinate 25 mg 02/14/21 09:00 02/15/21 07:53 Metoprolol Succinate Er 25 Mg Tab.Er.24h PO 25 mg DAILY ISAIAH Administration Protocol Omeprazole 40 mg 02/14/21 09:00 02/15/21 06:31 Omeprazole 40 Mg Capsule.Dr PO 40 mg BID@0630,1630 ISAIAH Administration Sodium Chloride 3 ml 02/14/21 08:01 02/15/21 08:07 0.9 % Sodium Chloride Flush 3 Ml Syringe IVFLUSH 3 ml QSHIFT ISAIAH Administration Sodium Chloride 3 ml 02/14/21 17:24 02/15/21 00:41 0.9 % Sodium Chloride Flush 3 Ml Syringe IVFLUSH 3 ml QSHIFT ISAIAH Administration Tramadol HCl 50 mg 02/14/21 10:00 02/15/21 06:31 Tramadol Hcl 50 Mg Tablet PO 50 mg 5XD ISAIAH Administration Zolpidem Tartrate 5 mg 02/14/21 08:01 02/14/21 21:12 Zolpidem Tartrate 5 Mg Tablet PO 5 mg BEDTIME PRN Administration Insomnia Time Spent With Patient Time: Total time spent is greater than 50% in coordination of care (as documented) at patient's floor/unit and/or counseling patient: Time with patient: less than 15 minutes Procedures Date of Service Date of Service: 02/15/21 Quality Stroke Does the patient have a stroke diagnosis?: No VTE Prior VTE?: No VTE Risk Level:: Medical - moderate - high VTE Device Contraindication: N/A - Device Ordered VTE Drug Contraindication: Treatment Not Tolerated
--- NOTE | 2021-02-15 10:02 | HO.PM.IMPN ---
Subjective Subjective Date of Service: 02/15/21 Interval History: pain improved Cardiovascular Cardiovascular: Reports no additional cardiovascular complaints Respiratory Respiratory: Reports no additional respiratory complaints Physical Exam Vital Signs: Vital Signs: Last Vital Signs Temp 98.4 F 02/15/21 08:00 Pulse 74 02/15/21 08:38 Resp 18 02/15/21 08:00 BP 140/83 H 02/15/21 08:38 Pulse Ox 98 02/15/21 08:38 Body Mass Index 24.0 General: AO X 3, no acute distress Resp: CTA bilateral CVS: S1,S2,RRR GI: soft, non tender, non distended Neuro: motor grossly intact Psych: appropriate affect Objective Data Current Medications Generic Name Dose Route Start Last Admin Trade Name Freq PRN Reason Stop Dose Admin Acetaminophen 650 mg 02/14/21 08:01 Acetaminophen 325 Mg Tablet PO Q6H PRN Pain, Mild (Pain Scale 1-3) Aspirin 325 mg 02/15/21 21:10 Aspirin 325 Mg Tablet PO BID ISAIAH Atorvastatin Calcium 20 mg 02/14/21 21:00 02/14/21 21:12 Atorvastatin Calcium 20 Mg Tablet PO 20 mg BEDTIME ISAIAH Administration Gabapentin 300 mg 02/14/21 08:01 02/14/21 19:50 Gabapentin 300 Mg Capsule PO 300 mg Q4H PRN Administration Pain Hydromorphone HCl 0.5 mg 02/14/21 08:01 02/15/21 08:03 Hydromorphone Hcl 0.5 Mg/0.5 Ml Syringe IVPUSH 0.5 mg Q2H PRN Administration pain Lactulose 20 gm 02/14/21 09:00 02/15/21 07:53 Lactulose 20 Gm/30 Ml Solution PO 20 gm DAILY ISAIAH Administration Metoprolol Succinate 25 mg 02/14/21 09:00 02/15/21 07:53 Metoprolol Succinate Er 25 Mg Tab.Er.24h PO 25 mg DAILY ISAIAH Administration Protocol Omeprazole 40 mg 02/14/21 09:00 02/15/21 06:31 Omeprazole 40 Mg Capsule.Dr PO 40 mg BID@0630,1630 ISAIAH Administration Sodium Chloride 3 ml 02/14/21 08:01 02/15/21 08:07 0.9 % Sodium Chloride Flush 3 Ml Syringe IVFLUSH 3 ml QSHIFT ISAIAH Administration Sodium Chloride 3 ml 02/14/21 17:24 02/15/21 00:41 0.9 % Sodium Chloride Flush 3 Ml Syringe IVFLUSH 3 ml QSHIFT ISAIAH Administration Tramadol HCl 50 mg 02/14/21 10:00 02/15/21 06:31 Tramadol Hcl 50 Mg Tablet PO 50 mg 5XD ISAIAH Administration Zolpidem Tartrate 5 mg 02/14/21 08:01 02/14/21 21:12 Zolpidem Tartrate 5 Mg Tablet PO 5 mg BEDTIME PRN Administration Insomnia Labs CBC & Chem 7: 02/15/21 06:13 02/15/21 06:13 Labs: Laboratory Results - last 24 hr 02/15/21 02/15/21 06:13 06:13 WBC 10.2 RBC 3.54 L Hgb 8.3 L Hct 28.4 L MCV 80.2 MCH 23.4 L MCHC 29.2 L RDW 15.7 Plt Count 169 MPV 10.3 Absolute Nucleated RBC 0.000 Nucleated RBC % (auto) 0.0 Sodium 141 Potassium 4.8 D Chloride 106 Carbon Dioxide 28 Anion Gap 12 BUN 11 Creatinine 0.70 Estim Creat Clear Calc 70.0 Estimated GFR > 60 Random Glucose 126 H Calcium 9.1 Quality Stroke Does the patient have a stroke diagnosis?: No VTE Prior VTE?: No VTE Risk Level:: Medical - moderate - high VTE Device Contraindication: N/A - Device Ordered VTE Drug Contraindication: N/A - Med Ordered Assessment and Plan (1) Closed subcapital fracture of left femur: Status: Acute Assessment and Plan: 75F presented with mechancial fall, found to have left femoral fracture mechanical fall, left hip fracture POD 1 eft hip canulated screws PT asa bid htn continue metoprolol restart losartan hld statin 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
[2021-02-15] MEDS: Losartan Potassium 50 MG TABLET PO (10:32)
--- NOTE | 2021-02-15 12:12 | MHC.CM.PN ---
NURSE HOME RESTORATION SERVICE SUPERVISOR NOTE ELECTRONIC MEDICAL RECORD REVIEWED, EXPLAINED THE ROLE OF NURSE HOME RESTORATION SERVICE SUPERVISOR TO THEM IN THE TRANSITION FROM HOSPITAL TO HOME, PATIENT CONFIRMED THAT SHE HAD A HEALTH CARE PROXY AND THIS SYSTEM CONSULTANT REQUESTED COPY BE BROUGHT IN . MET WITH PATIENT SHE LIVED WITH HER M SHE HAD BEEN INDEPENDENT IN HER ADLS AND AMBULATION, WE DISCUSSED ACUTE REHAB FACILITIES AND SHE INITIALLY SHOWED INTEREST IN [facility] AND THEN DECIDED SHE WANTED TO GO TO [facility] HER ALSO REPORTEDLY CALLED TO [facility] ALL CLINICAL INFORMATION AND THE PHYSICAL THERAPY EVAL WAS SENT TO [facility] SPOKE WITH LIALONG RADFORD THEY WILL HAVE BED AVAILABLE FOR HER, PENDING INSURANCE INFORMATION ? WHETHER [employer] IS PRIMAERY OR SECONDARY SUPPLEMENT REGISTRATION IS CHECKING IN TO THIS DISCHARGE PLAN SHORT TERM REHAB REF SENT TO [facility] TRANSPORT VIA [facility] REQUESTED COPY OF HCP BE BROUGHT TO HOSPITAL
[2021-02-15] MEDS: Gabapentin 300 MG CAPSULE PO ×2 (14:13→18:06)
[2021-02-15] MEDS: Aspirin 325 MG TABLET PO (20:35)
[2021-02-15] MEDS: Atorvastatin Calcium 20 MG TABLET PO (20:36)
[2021-02-16 03:50] VITALS: BP 138/65; PULSE 93; RESP 18; TEMP 36.7; O2SAT 95
[2021-02-16] MEDS: Omeprazole 40 MG CAPSULE.DR PO ×2 (06:43→15:56)
[2021-02-16] MEDS: traMADoL HCL 50 MG TABLET PO ×5 (06:43→20:28)
[2021-02-16] MEDS: Gabapentin 300 MG CAPSULE PO ×4 (06:44→20:28)
[2021-02-16 07:08] LABS: Hematocrit 28.7 % (37-47); Hemoglobin 8.4 g/dl (12.0-16.0); Mean Corpuscular HGB Conc 29.3 g/dl (31.0-35.0); Mean Corpuscular Hemoglobin 23.8 pg (27.0-33.0); Mean Corpuscular Volume 81.3 fL (80-98); Mean Platelet Volume 10.9 fL (9.4-12.3); Platelet Count 224 X10*3/uL (160-400); Red Blood Count 3.53 X10*6/uL (4.20-5.50); Red Cell Distribution Width 16.4 % (11.0-16.0); White Blood Count 11.8 X10*3/uL (4.8-10.8)
[2021-02-16 07:25] LABS: Anion Gap 17 (12-20); Blood Urea Nitrogen 12 mg/dL (9-16); Calcium 9.2 mg/dL (8.4-10.2); Carbon Dioxide 23 mmol/L (22-29); Chloride 104 mmol/L (96-108); Creatinine Clr Calc Pharmacy 59.1; Estimated Glomerular Filt Rate > 60; Glucose Fasting 150 mg/dL (60-99); Potassium 4.5 mmol/L (3.3-5.1); Sodium 139 mmol/L (135-145)
[2021-02-16 07:35] VITALS: BP 136/61; PULSE 79; RESP 17; TEMP 36; O2SAT 92
[2021-02-16 09:35] VITALS: BP 136/61; PULSE 79; O2SAT 92
[2021-02-16] MEDS: 0.9 % Sodium Chloride Flush 3 ML SYRINGE IVFLUSH ×3 (09:59→14:43)
[2021-02-16] MEDS: Aspirin 325 MG TABLET PO ×2 (09:59→20:27)
[2021-02-16] MEDS: Metoprolol Succinate ER 25 MG TAB.ER.24H PO (10:00)
[2021-02-16] MEDS: HYDROmorphone HCl 0.5 MG/0.5 ML SYRINGE IVPUSH ×2 (10:02→12:31)
--- NOTE | 2021-02-16 10:15 | HO.PM.IMPN ---
Subjective Subjective Date of Service: 02/16/21 Interval History: hip pain Respiratory Respiratory: Reports no additional respiratory complaints Gastrointestinal Gastrointestinal: Reports no additional gastrointestinal complaints Physical Exam Vital Signs: Vital Signs: Last Vital Signs Temp 96.8 F 02/16/21 07:35 Pulse 79 02/16/21 09:35 Resp 17 02/16/21 07:35 BP 136/61 02/16/21 09:35 Pulse Ox 92 02/16/21 09:35 Body Mass Index 24.0 General: AO X 3, no acute distress Resp: CTA bilateral CVS: S1,S2,RRR GI: soft, non tender, non distended Neuro: motor grossly intact Psych: appropriate affect Objective Data Current Medications Generic Name Dose Route Start Last Admin Trade Name Freq PRN Reason Stop Dose Admin Acetaminophen 650 mg 02/14/21 08:01 Acetaminophen 325 Mg Tablet PO Q6H PRN Pain, Mild (Pain Scale 1-3) Aspirin 325 mg 02/15/21 21:10 02/16/21 09:59 Aspirin 325 Mg Tablet PO 325 mg BID ISAIAH Administration Atorvastatin Calcium 20 mg 02/14/21 21:00 02/15/21 20:36 Atorvastatin Calcium 20 Mg Tablet PO 20 mg BEDTIME ISAIAH Administration Gabapentin 300 mg 02/14/21 08:01 02/16/21 06:44 Gabapentin 300 Mg Capsule PO 300 mg Q4H PRN Administration Pain Hydromorphone HCl 0.5 mg 02/14/21 08:01 02/16/21 10:02 Hydromorphone Hcl 0.5 Mg/0.5 Ml Syringe IVPUSH 0.5 mg Q2H PRN Administration pain Lactulose 20 gm 02/14/21 09:00 02/16/21 10:01 Lactulose 20 Gm/30 Ml Solution PO Not Given DAILY [facility] Lidocaine HCl 1 appl 02/15/21 16:25 Lidocaine 4 % Cream Kit TOPICAL ONCE PRN Pain, Mild (Pain Scale 1-3) Protocol Losartan Potassium 50 mg 02/16/21 09:00 02/15/21 10:32 Losartan Potassium 50 Mg Tablet PO 50 mg DAILY ISAIAH Administration Protocol Metoprolol Succinate 25 mg 02/14/21 09:00 02/16/21 10:00 Metoprolol Succinate Er 25 Mg Tab.Er.24h PO 25 mg DAILY ISAIAH Administration Protocol Omeprazole 40 mg 02/14/21 09:00 02/16/21 06:43 Omeprazole 40 Mg Capsule. PO 40 mg BID@0630,1630 ISAIAH Administration Sodium Chloride 3 ml 02/14/21 08:01 02/16/21 09:59 0.9 % Sodium Chloride Flush 3 Ml Syringe IVFLUSH 3 ml QSHIFT ISAIAH Administration Sodium Chloride 3 ml 02/14/21 17:24 02/16/21 09:59 0.9 % Sodium Chloride Flush 3 Ml Syringe IVFLUSH 3 ml QSHIFT ISAIAH Administration Tramadol HCl 50 mg 02/14/21 10:00 02/16/21 06:43 Tramadol Hcl 50 Mg Tablet PO 50 mg 5XD ISAIAH Administration Zolpidem Tartrate 5 mg 02/14/21 08:01 02/14/21 21:12 Zolpidem Tartrate 5 Mg Tablet PO 5 mg BEDTIME PRN Administration Insomnia Labs CBC & Chem 7: 02/16/21 06:31 02/16/21 06:31 Labs: Laboratory Results - last 24 hr 02/16/21 02/16/21 06:31 06:31 WBC 11.8 H RBC 3.53 L Hgb 8.4 L Hct 28.7 L MCV 81.3 MCH 23.8 L MCHC 29.3 L RDW 16.4 H Plt Count 224 D MPV 10.9 Absolute Nucleated RBC 0.000 Nucleated RBC % (auto) 0.0 Sodium 139 Potassium 4.5 Chloride 104 Carbon Dioxide 23 Anion Gap 17 BUN 12 Creatinine 0.83 Estim Creat Clear Calc 59.1 Estimated GFR > 60 Fasting Glucose 150 H Calcium 9.2 Quality Stroke Does the patient have a stroke diagnosis?: No VTE Prior VTE?: No VTE Risk Level:: Medical - moderate - high VTE Device Contraindication: N/A - Device Ordered VTE Drug Contraindication: N/A - Med Ordered Assessment and Plan (1) Closed subcapital fracture of left femur: Status: Acute Assessment and Plan: 75F presented with mechancial fall, found to have left femoral fracture mechanical fall, left hip fracture POD 2 eft hip canulated screws PT asa bid plan for STR starting tomorrow htn continue metoprolol, losartan hld statin 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
[2021-02-16 11:49] VITALS: BP 123/73; PULSE 98; RESP 18; TEMP 36.3; O2SAT 97
--- NOTE | 2021-02-16 12:09 | PM.PNORT ---
Subjective Subjective Date of Service: 02/16/21 Interval history: POD2 s/p left hip canulated screws with Dr. Zee. Patient is resting comfortably in bed. Pain is well managed. No overnight events. Denies SOB, Chest pain, abd pain. No additional complaints. Physical Exam Vital Signs: Vital Signs: Last Vital Signs Temp 97.4 F 02/16/21 11:49 Pulse 98 02/16/21 11:49 Resp 18 02/16/21 11:49 BP 123/73 02/16/21 11:49 Pulse Ox 97 02/16/21 11:49 Body Mass Index 24.0 Const: General: cooperative, healthy appearing and no acute distress Resp: Effort & Inspection: normal respiratory effort and able to speak in complete sentences Cardio: Rate: regular rate Peripheral pulses: Peripheral pulses 2+ throughout GI: Palpation (GI): Soft to palpation Skin: Lesions: no lesions Rashes: no rashes Extrem: Other: Left hip bandages are clean, dry, and intact. No ecchymosis, redness, or drainage. NVI. Progress Note: A&P Assessment and plan (1) Closed subcapital fracture of left femur: Status: Acute Assessment and Plan: Continue pain mgmnt Continue Aspirin dvt ppx Continue PT for left hip canulated screws Dispo planning-Pain management, okay for d/c from ortho standpoint Fall Risk Details Current Medications: Current Medications Generic Name Dose Route Start Last Admin Trade Name Freq PRN Reason Stop Dose Admin Acetaminophen 650 mg 02/14/21 08:01 Acetaminophen 325 Mg Tablet PO Q6H PRN Pain, Mild (Pain Scale 1-3) Aspirin 325 mg 02/15/21 21:10 02/16/21 09:59 Aspirin 325 Mg Tablet PO 325 mg BID ISAIAH Administration Atorvastatin Calcium 20 mg 02/14/21 21:00 02/15/21 20:36 Atorvastatin Calcium 20 Mg Tablet PO 20 mg BEDTIME ISAIAH Administration Gabapentin 300 mg 02/14/21 08:01 02/16/21 10:57 Gabapentin 300 Mg Capsule PO 300 mg Q4H PRN Administration Pain Hydromorphone HCl 0.5 mg 02/14/21 08:01 02/16/21 10:02 Hydromorphone Hcl 0.5 Mg/0.5 Ml Syringe IVPUSH 0.5 mg Q2H PRN Administration pain Lactulose 20 gm 02/14/21 09:00 02/16/21 10:01 Lactulose 20 Gm/30 Ml Solution PO Not Given DAILY [facility] Lidocaine HCl 1 appl 02/15/21 16:25 Lidocaine 4 % Cream Kit TOPICAL ONCE PRN Pain, Mild (Pain Scale 1-3) Protocol Losartan Potassium 50 mg 02/16/21 09:00 02/15/21 10:32 Losartan Potassium 50 Mg Tablet PO 50 mg DAILY ISAIAH Administration Protocol Metoprolol Succinate 25 mg 02/14/21 09:00 02/16/21 10:00 Metoprolol Succinate Er 25 Mg Tab.Er.24h PO 25 mg DAILY ISAIAH Administration Protocol Omeprazole 40 mg 02/14/21 09:00 02/16/21 06:43 Omeprazole 40 Mg Capsule.Dr PO 40 mg BID@0630,1630 ISAIAH Administration Sodium Chloride 3 ml 02/14/21 08:01 02/16/21 09:59 0.9 % Sodium Chloride Flush 3 Ml Syringe IVFLUSH 3 ml QSHIFT ISAIAH Administration Sodium Chloride 3 ml 02/14/21 17:24 02/16/21 09:59 0.9 % Sodium Chloride Flush 3 Ml Syringe IVFLUSH 3 ml QSHIFT ISAIAH Administration Tramadol HCl 50 mg 02/14/21 10:00 02/16/21 10:57 Tramadol Hcl 50 Mg Tablet PO 50 mg 5XD ISAIAH Administration Zolpidem Tartrate 5 mg 02/14/21 08:01 02/14/21 21:12 Zolpidem Tartrate 5 Mg Tablet PO 5 mg BEDTIME PRN Administration Insomnia Time Spent With Patient Time: Total time spent is greater than 50% in coordination of care (as documented) at patient's floor/unit and/or counseling patient: Time with patient: less than 15 minutes Procedures Date of Service Date of Service: 02/16/21 Quality Stroke Does the patient have a stroke diagnosis?: No VTE Prior VTE?: No VTE Risk Level:: Medical - moderate - high VTE Device Contraindication: N/A - Device Ordered VTE Drug Contraindication: N/A - Med Ordered
--- NOTE | 2021-02-16 12:41 | MHC.CM.PN ---
nurse disease case manager rn note electronic medical record reviewed along with case discussed with staff nurse and hospitalist. discharge plan anticipate patient to be discharged 02/17/21 to short term rehab at [facility] she will be transferred via [facility] to facility
[2021-02-16 15:48] VITALS: BP 140/70; PULSE 90; RESP 16; TEMP 36.4; O2SAT 96
[2021-02-16] MEDS: Acetaminophen 325 MG TABLET 650 MG PO (15:56)
[2021-02-16 19:15] VITALS: BP 136/62; PULSE 67; RESP 12; TEMP 36.1; O2SAT 94
[2021-02-16] MEDS: Atorvastatin Calcium 20 MG TABLET PO (20:28)
[2021-02-17] VITALS: BP 131/67; PULSE 69; RESP 18; TEMP 36; O2SAT 93
[2021-02-17] MEDS: 0.9 % Sodium Chloride Flush 3 ML SYRINGE IVFLUSH ×2 (01:02→08:21)
[2021-02-17] MEDS: Gabapentin 300 MG CAPSULE PO ×3 (01:09→10:21)
[2021-02-17] MEDS: HYDROmorphone HCl 0.5 MG/0.5 ML SYRINGE IVPUSH (02:48)
[2021-02-17 04:00] VITALS: BP 117/65; PULSE 70; RESP 16; TEMP 36; O2SAT 96
[2021-02-17] MEDS: traMADoL HCL 50 MG TABLET PO ×2 (05:38→10:21)
[2021-02-17] MEDS: Omeprazole 40 MG CAPSULE.DR PO (05:38)
[2021-02-17 07:50] VITALS: BP 117/56; PULSE 76; RESP 18; TEMP 36.1; O2SAT 97
[2021-02-17] MEDS: Aspirin 325 MG TABLET PO (08:16)
[2021-02-17] MEDS: Metoprolol Succinate ER 25 MG TAB.ER.24H PO (08:18)
[2021-02-17] MEDS: Acetaminophen 325 MG TABLET 650 MG PO (08:19)
[2021-02-17] MEDS: Losartan Potassium 50 MG TABLET PO (08:19)
--- NOTE | 2021-02-17 08:40 | PM.DS ---
DS: Providers Provider Date of Service: 02/17/21 Date of admission: 02/14/21 07:53 Primary care physician: Unknown Physician Consults: 02/14/21 08:01 Consult to Orthopedics Routine Consulting Provider: Sera Zee Reason for consultation: left hip fracture DS: Diagnosis Discharge Diagnosis (1) Closed subcapital fracture of left femur: Status: Acute DS: Medications Discharge Medications Home Medications: Home Medications Medication Instructions Recorded Confirmed atorvastatin 1 tab PO DAILY 02/14/21 02/14/21 gabapentin 300 mg PO Q4-5H PRN 02/14/21 02/14/21 lactulose 20 g PO DAILY 02/14/21 02/14/21 losartan 1 tab PO DAILY 02/14/21 02/14/21 metoprolol succinate 1 tab PO DAILY 02/14/21 02/14/21 omeprazole 1 cap PO BID 02/14/21 02/14/21 Previous Rx's Medication Instructions Recorded aspirin 325 mg PO BID #60 tab 02/17/21 oxycodone 5 mg PO Q6H PRN #10 cap 02/17/21 tramadol 1 tab PO 5XD #20 tab 02/17/21 zolpidem 1 tab PO BEDTIME PRN #5 tab 02/17/21 DS: Summary Hospital Course Hospital Course: Admitted with fall and left hip fracture. She underwent left hip canulated screwing. perioperative period was unremarkable. [facility]. She will continue 4 weeks of high-dose aspirin for DVT prophylaxis and follow up with Orthopedics in 2 weeks. Time Spent with Patient Time attestation: Total time spent providing and/or coordinating discharge services: Discharge coordination time: Greater than 30 minutes Quality: Stroke Does the patient have a stroke diagnosis?: No Physical Exam Vital Signs: Vital Signs: Last Vital Signs Temp 96.9 F 02/17/21 07:50 Pulse 76 02/17/21 07:50 Resp 18 02/17/21 07:50 BP 117/56 L 02/17/21 07:50 Pulse Ox 97 02/17/21 07:50 Body Mass Index 24.0 General: AO X 3, no acute distress Resp: CTA bilateral CVS: S1,S2,RRR GI: soft, non tender, non distended Neuro: motor grossly intact Psych: appropriate affect Discharge Plan Discharge Patient Disposition: er SNF Discharge Diagnosis: fall, hip fracture Referrals: dalila fay [Other] - 1 Week (YOU WILL BE TRANSFERRED BY [facility] ON 02/17/21 TO START YOUR REHAB AT [facility]) Sera Zee MD [Physician] - 1 Week Physician,Unknown [Primary Care Provider] - 1 Week Discharge Medications: New aspirin 325 mg Tablet 325 mg PO BID Qty: 60 RF: 0 oxycodone 5 mg capsule 5 mg PO Q6H PRN (Reason: pain) Qty: 10 RF: 0 Continued losartan 50 mg tablet 1 tab PO DAILY RF: 0 atorvastatin 20 mg tablet 1 tab PO DAILY RF: 0 omeprazole 40 mg capsule,delayed release(DR/EC) 1 cap PO BID RF: 0 gabapentin 300 mg capsule 300 mg PO Q4-5H PRN (Reason: Pain) RF: 0 metoprolol succinate 25 mg tablet extended release 24 hr 1 tab PO DAILY RF: 0 lactulose 20 gram/30 mL Solution 20 g PO DAILY RF: 0 tramadol 50 mg tablet 1 tab PO 5XD Qty: 20 RF: 0 zolpidem 10 mg tablet 1 tab PO BEDTIME PRN (Reason: Insomnia) Qty: 5 RF: 0 Discharge Orders: Discharge Order (Routine); Ordered 02/17/21 Ordered By: Edwardo Aguila Diet: regular diet Activity on Discharge: Use cane or walker Stand Alone Forms: Patient Portal Discharge page Care Plan Goals: recovery Health Concerns: hip fracture Plan of Treatment: see above Assessment: Gait training, strengthening, ADLs Continue ASA for dvt ppx x4 weeks Keep dressing clean,dry and intact-no showering or tub baths Follow up with Orthopedics in 2 weeks
[2021-02-17 08:51] LABS: COVID-19 Test Negative (Negative); IDNOW Serial# 9DD0AD1C
--- NOTE | 2021-02-17 09:10 | MHC.CM.PN ---
NURSE RN WOMEN SERVICES NOTE ELECTRONICMEDICAL RECORD REVIEWED ALONG WITH CASE DISCUSSED WITH THE HOSPITALIST AND STAFF NURSE MET WITH PATIENT TIME OF TRANSPORT QWAS FOR 10 AM [facility] ASKED IF WE YOU CHANGE IT TO 12 NOON CONFIRMED WITH RICHARD AT [facility] 12 NOON TRANSPORT BLS PATIENT AND NURSE ARE AWARE,ALL SCRIPT CLINIC[facility] SENT AND PATIENT RACHEL BE GOING WITH HER TWO NEGATIVE COVID TEST REPORTS THE D/C SUMMARY AND PATIENT INSTRIIUCTIONS SPOKE SHANIA THE NURSE AT [facility] , DISCHARGE PLAN [facility] TO BE TRANSPORTED [facility] TODAY AT 12 NOON
--- NOTE | 2021-02-17 11:07 | MHC.INPTTRAN ---
pt is A+O x 4. Pleasant and cooperative with care. she is a one assist to the commode or with the walker to the bathroom. sm dsd to L hip - CDI. Covid swab negative. Cont with pain in L hip as well as cervical spine s/p surgery and neuropathy s/p cancer treatment. can have ultram and gabapentin prn. Regular diet. Ind with eating/ care
--- NOTE | 2021-02-19 09:46 | P.OP_ITS ---
Operative Note Operative Note Date of Service: 02/14/21 Narrative: OPERATIVE PROCEDURE NOTE SURGEON: Dr. Zamoar (Jessica) Instrum VETERINARY SURGERY TECHNICIAN: None PREOP DIAGNOSIS: garden 1 subcapital fracture left hip POSTOP DIAGNOSIS: same OPERATIVE PROCEDURE: closed reduction and percutaneous screw fixation left hip CLINICAL NOTE: this lady fell in her own home injuring her left hip. She presented to the emergency department. The above noted injury was found. She was admitted to the medical service. After explaining the risks benefits and alternatives and answering her questions it was mutually agreed upon to carry the following procedure OPERATIVE PROCEDURE under general anesthetic the patient was placed supine on the fracture table. The right hip was flexed abducted external rotated out of the way. The left foot was placed in standard boot traction with minimal traction. Closed reduction was performed under fluoroscopic guidance. Following this the left hip was prepped and draped in standard barrier technique. Surgical time-out was then performed. Patient was identified. Procedure confirmed. Medical and allergy history were reviewed. Preoperative antibiotics were given. All other items were discussed and agreed upon. Under fluoroscopic guidance small stab incision was made laterally. It was dissected down to the level of the bone. Following this 3 guidewires were inserted from the lateral cortex into the head and neck in parallel fashion. These were then measured drilled and the appropriate length screws inserted with excellent purchase. The guidewires were then removed. Final imaging demonstrated the fracture and the hardware all to be in excellent position. And therefore proceeded to closure. Wound was irrigated. The skin is approximated using interrupted 2 0 Dexon. Dermabond, Steri-Strips and a sterile dressing were then applied. The patient was then taken off the fracture table and transferred to the room bed where the anesthesia was reversed. They were transferred to the recovery room in good condition. Intraoperatively there was very little blood loss. No complications.
--- NOTE | 2021-02-26 11:06 | ED_ITS ---
HPI - General Adult General Chief complaint: General Medical Stated complaint: Left hip pain Time Seen by Provider: 02/14/21 03:59 Source: patient Mode of arrival: EMS Limitations: no limitations Related Data Home Medications Medication Instructions Recorded Confirmed atorvastatin 20 mg tablet 1 tab PO DAILY 02/14/21 02/14/21 gabapentin 300 mg capsule 300 mg PO Q4-5H PRN 02/14/21 02/14/21 lactulose 20 gram/30 mL oral 20 g PO DAILY 02/14/21 02/14/21 solution losartan 50 mg tablet 1 tab PO DAILY 02/14/21 02/14/21 metoprolol succinate 25 mg 1 tab PO DAILY 02/14/21 02/14/21 tablet,extended release 24 hr omeprazole 40 mg capsule,delayed 1 cap PO BID 02/14/21 02/14/21 release Previous Rx's Medication Instructions Recorded aspirin 325 mg tablet 325 mg PO BID #60 tab 02/17/21 oxycodone 5 mg capsule 5 mg PO Q6H PRN #10 cap 02/17/21 tramadol 50 mg tablet 1 tab PO 5XD #20 tab 02/17/21 zolpidem 10 mg tablet 1 tab PO BEDTIME PRN #5 tab 02/17/21 Allergies Allergy/AdvReac Type Severity Reaction Status Date / Time No Known Allergies Allergy Unverified 05/10/20 15:19 [facility] Past Medical History Medical History Cecum cancer Cervical pain (neck) High cholesterol Hypertension Lumbar back pain with radiculopathy affecting lower extremity Neuropathy Surgical History History of cervical spinal surgery History of lumbar surgery Social History Social History Household Members: Spouse Housing: House Do you presently have visiting nurse or other home services: No Alcohol intake: current Alcohol intake frequency: does not drink Patient Tobacco Use Status: Never used Tobacco service: No Current occupational status: retired Physical Exam Vital Signs: Vital Signs: Last Vital Signs Temp 96.9 F 02/17/21 07:50 Pulse 76 02/17/21 07:50 Resp 18 02/17/21 07:50 BP 117/56 L 02/17/21 07:50 Pulse Ox 97 02/17/21 07:50 Body Mass Index 24.0 Medical Decision Making Lab Data Result diagrams: 02/16/21 06:31 02/16/21 06:31 Labs: Lab Results 02/14/21 02/14/21 02/14/21 Range/Units 04:00 04:00 04:00 WBC 9.1 (4.8-10.8) X10*3/uL RBC 3.85 L (4.20-5.50) X10*6/uL Hgb 9.2 L (12.0-16.0) g/dl Hct 31.3 L (37-47) % MCV 81.3 (80-98) fL MCH 23.9 L (27.0-33.0) pg MCHC 29.4 L (31.0-35.0) g/dl RDW 15.8 (11.0-16.0) % Plt Count 194 (160-400) X10*3/uL MPV 9.7 (9.4-12.3) fL Immature Gran % (Auto) 0.6 H (0.0-0.4) % Neut % (Auto) 79.8 H (45-73) % Lymph % (Auto) 14.4 L (20-40) % [place] % (Auto) 4.1 (2-11) % Eos % (Auto) 0.8 (0-4) % Baso % (Auto) 0.3 (0-2) % Lymph # (Auto) 1.3 (1.2-4.9) X10*3/uL [place] # (Auto) 0.4 (0.1-1.2) X10*3/uL Eos # (Auto) 0.1 (0.0-0.4) X10*3/uL Baso # (Auto) 0.0 (0.0-0.2) X10*3/uL Abs Immat Gran (auto) 0.05 H (0.00-0.03) X10*3/uL Absolute Neuts (auto) 7.2 (2.0-8.3) X10*3/uL Absolute Nucleated RBC 0.000 (0.0-0.012) X10*3/uL Nucleated RBC % (auto) 0.0 (0.0-0.2) /100WBC PT 11.2 (10.8-13.0) SEC INR 0.9 (0.9-1.1) APTT 36.7 (24.1-38.0) SEC Sodium 141 (135-145) mmol/L Potassium 3.8 (3.3-5.1) mmol/L Chloride 105 (96-108) mmol/L Carbon Dioxide 28 (22-29) mmol/L Anion Gap 12 (12-20) BUN 13 (9-16) mg/dL Creatinine 0.86 (0.5-1.4) mg/dL Estim Creat Clear Calc 57.0 Estimated GFR > 60 Random Glucose 112 (60-115) mg/dL Calcium 9.3 (8.4-10.2) mg/dL Total Bilirubin 0.4 (0.0-1.0) mg/dL AST 17 (5-31) U/L ALT 9 (0-31) U/L Alkaline Phosphatase 91 (39-117) U/L Total Protein 6.8 (6.5-8.0) g/dL Albumin 4.3 (3.5-5.0) g/dL Lipase 20 (8-78) U/L Urine Color Urine Appearance Urine pH (5.0-8.0) Ur Specific [place] (1.005-1.025) Urine Protein (NEG-TRACE) MG/DL Urine Glucose (UA) (NEG) MG/DL Urine Ketones (NEG) MG/DL Urine Blood (NEG) Urine Nitrite (NEG) Ur Leukocyte Esterase (NEG) Ethyl Alcohol mg/dL COVID-19 (JODY) (Negative) COVID-19 Clin Com Blood Type Antibody Screen 02/14/21 02/14/21 02/14/21 Range/Units 04:00 04:20 05:59 WBC (4.8-10.8) X10*3/uL RBC (4.20-5.50) X10*6/uL Hgb (12.0-16.0) g/dl Hct (37-47) % MCV (80-98) fL MCH (27.0-33.0) pg MCHC (31.0-35.0) g/dl RDW (11.0-16.0) % Plt Count (160-400) X10*3/uL MPV (9.4-12.3) fL Immature Gran % (Auto) (0.0-0.4) % Neut % (Auto) (45-73) % Lymph % (Auto) (20-40) % [place] % (Auto) (2-11) % Eos % (Auto) (0-4) % Baso % (Auto) (0-2) % Lymph # (Auto) (1.2-4.9) X10*3/uL [place] # (Auto) (0.1-1.2) X10*3/uL Eos # (Auto) (0.0-0.4) X10*3/uL Baso # (Auto) (0.0-0.2) X10*3/uL Abs Immat Gran (auto) (0.00-0.03) X10*3/uL Absolute Neuts (auto) (2.0-8.3) X10*3/uL Absolute Nucleated RBC (0.0-0.012) X10*3/uL Nucleated RBC % (auto) (0.0-0.2) /100WBC PT (10.8-13.0) SEC INR (0.9-1.1) APTT (24.1-38.0) SEC Sodium (135-145) mmol/L Potassium (3.3-5.1) mmol/L Chloride (96-108) mmol/L Carbon Dioxide (22-29) mmol/L Anion Gap (12-20) BUN (9-16) mg/dL Creatinine (0.5-1.4) mg/dL Estim Creat Clear Calc Estimated GFR Random Glucose (60-115) mg/dL Calcium (8.4-10.2) mg/dL Total Bilirubin (0.0-1.0) mg/dL AST (5-31) U/L ALT (0-31) U/L Alkaline Phosphatase (39-117) U/L Total Protein (6.5-8.0) g/dL Albumin (3.5-5.0) g/dL Lipase (8-78) U/L Urine Color STRAW Urine Appearance CLEAR Urine pH 7.0 (5.0-8.0) Ur Specific [place] 1.015 (1.005-1.025) Urine Protein NEG (NEG-TRACE) MG/DL Urine Glucose (UA) NEG (NEG) MG/DL Urine Ketones NEG (NEG) MG/DL Urine Blood NEG (NEG) Urine Nitrite NEG (NEG) Ur Leukocyte Esterase NEG (NEG) Ethyl Alcohol < 10 mg/dL COVID-19 (JODY) Negative (Negative) COVID-19 Clin Com See Note Blood Type Antibody Screen 02/14/21 Range/Units 06:43 WBC (4.8-10.8) X10*3/uL RBC (4.20-5.50) X10*6/uL Hgb (12.0-16.0) g/dl Hct (37-47) % MCV (80-98) fL MCH (27.0-33.0) pg MCHC (31.0-35.0) g/dl RDW (11.0-16.0) % Plt Count (160-400) X10*3/uL MPV (9.4-12.3) fL Immature Gran % (Auto) (0.0-0.4) % Neut % (Auto) (45-73) % Lymph % (Auto) (20-40) % [place] % (Auto) (2-11) % Eos % (Auto) (0-4) % Baso % (Auto) (0-2) % Lymph # (Auto) (1.2-4.9) X10*3/uL [place] # (Auto) (0.1-1.2) X10*3/uL Eos # (Auto) (0.0-0.4) X10*3/uL Baso # (Auto) (0.0-0.2) X10*3/uL Abs Immat Gran (auto) (0.00-0.03) X10*3/uL Absolute Neuts (auto) (2.0-8.3) X10*3/uL Absolute Nucleated RBC (0.0-0.012) X10*3/uL Nucleated RBC % (auto) (0.0-0.2) /100WBC PT (10.8-13.0) SEC INR (0.9-1.1) APTT (24.1-38.0) SEC Sodium (135-145) mmol/L Potassium (3.3-5.1) mmol/L Chloride (96-108) mmol/L Carbon Dioxide (22-29) mmol/L Anion Gap (12-20) BUN (9-16) mg/dL Creatinine (0.5-1.4) mg/dL Estim Creat Clear Calc Estimated GFR Random Glucose (60-115) mg/dL Calcium (8.4-10.2) mg/dL Total Bilirubin (0.0-1.0) mg/dL AST (5-31) U/L ALT (0-31) U/L Alkaline Phosphatase (39-117) U/L Total Protein (6.5-8.0) g/dL Albumin (3.5-5.0) g/dL Lipase (8-78) U/L Urine Color Urine Appearance Urine pH (5.0-8.0) Ur Specific [place] (1.005-1.025) Urine Protein (NEG-TRACE) MG/DL Urine Glucose (UA) (NEG) MG/DL Urine Ketones (NEG) MG/DL Urine Blood (NEG) Urine Nitrite (NEG) Ur Leukocyte Esterase (NEG) Ethyl Alcohol mg/dL COVID-19 (JODY) (Negative) COVID-19 Clin Com Blood Type O Positive Antibody Screen NEGATIVE Discharge Plan Discharge Clinical Impression: Fall Closed subcapital fracture of left femur Qualifiers: Encounter type: initial encounter Qualified Code(s): S72.012A - Unspecified intracapsular fracture of left femur, initial encounter for closed fracture Patient Disposition: Admitted As Inpatient Interventions: Admission Worksheet (ED) Last Done: 02/14/21 09:30 Discharge Date/Time: 02/14/21 09:36
== END 2021-02-17 12:15 | disposition skilled nursing facility (03) | DRG 482 ==
LOC: HO.ED 06:41 → HO.EDOVER 07:54 → HO.S3 08:52
PROVIDERS: Orthopaedic Surgery; Admitting Provider Internal Medicine; Emergency Provider Emergency Medicine Emergency Medical Services; PCP Internal Medicine; Visit Provider Internal Medicine
PROC: 0QS734Z Reposition Left Upper Femur with Internal Fixation Device, Percutaneous Approach (ICD-10-PCS; principal; 2021-02-14 11:40)
DX: S72.012A Unspecified intracapsular fracture of left femur, initial encounter for closed fracture (principal); K59.09 Other constipation; G47.00 Insomnia, unspecified; G62.0 Drug-induced polyneuropathy; T45.1X5A Adverse effect of antineoplastic and immunosuppressive drugs, initial encounter; Y92.9 Unspecified place or not applicable; I10 Essential (primary) hypertension; W18.30XA Fall on same level, unspecified, initial encounter; Y93.9 Activity, unspecified; Y92.002 Bathroom of unspecified non-institutional (private) residence as the place of occurrence of the external cause; Y99.9 Unspecified external cause status; Z20.822 Contact with and (suspected) exposure to COVID-19; Z79.82 Long term (current) use of aspirin; Z79.891 Long term (current) use of opiate analgesic; Z79.899 Other long term (current) drug therapy
CPT/HCPCS: 36415; 73502; 80048; 80053; 81003; 82077; 83690; 85025; 85027; 85610; 85730; 86850; 86900; 86901; 87635; 93005; 97110; 97116; 97162; 97166; 99285; C1713; C1769; J0131; J0690; J1100; J1170; J2250; J2270; J2370; J3010

== ENCOUNTER 2021-05-31 08:30 | Outpatient (REF) | payer MEDICARE, SELFPAY ==
--- NOTE | ~2021-05-31 | CT_ITS ---
EXAMINATION: CT ABDOMEN AND PELVIS WITHOUT CONTRAST CLINICAL INFORMATION: Abdominal pain. History of colon cancer. COMPARISON: Previous CT scans of the abdomen and pelvis most recent August 2019 TECHNIQUE: Multidetector volumetric imaging was performed from the superior aspect of the liver through the pubic symphysis. Sagittal and coronal reformatted images were obtained on the technologist's workstation. This CT examination was performed using dose optimization techniques as appropriate, variously including the following: *Automated exposure control *Adjustment of mA and/or kV according to patient size (this includes techniques or standardized protocols for targeted exams where dose is matched to indication/reason for exam; i.e. extremities or head) *Use of iterative reconstruction technique DLP: 504 mGy-cm FINDINGS: LUNG BASES: The visualized lung bases are clear. There is a moderate to large esophageal hernia. LIVER, GALLBLADDER, AND BILIARY TREE: The liver is normal in size, shape, and attenuation. No focal hepatic lesion or biliary ductal dilatation is present. The gallbladder is unremarkable with no evidence of radiopaque gallstones, gallbladder wall thickening, or obvious pericholecystic inflammatory changes. PANCREAS: Unremarkable. SPLEEN: Unremarkable. ADRENAL GLANDS: Unremarkable. KIDNEYS AND URETERS: There is a 1 cm low-attenuation lesion in the anterior lower pole of the left kidney. Hounsfield units without contrast measure 6. This is stable from previous exams and probably represents a cyst. No imaging follow-up needed. The kidneys are otherwise unremarkable. BLADDER: Unremarkable. GASTROINTESTINAL TRACT: There are postsurgical changes following right colectomy. There is stool throughout the colon questionable for mild constipation. Large bowel is otherwise unremarkable. There is a moderate to large esophageal hernia. The stomach is otherwise normal. ABDOMINAL WALL: There is an umbilical hernia containing fat. There are small bilateral inguinal hernias containing fat. LYMPH NODES: Normal. VASCULAR: There is evidence of atherosclerotic disease. No aneurysm is seen. PELVIC VISCERA: Unremarkable. OSSEOUS STRUCTURES: There are 3 screws transfixing a subcapital left femoral neck fracture. There are postsurgical changes with posterior fusion hardware and disc interspace her at L5-S1. There is scoliosis and degenerative changes of the lumbar spine. CT/CT abdomen pelvis wo con IMPRESSION: Moderate to large esophageal hernia. Postoperative changes following right colectomy. Mild constipation. Small left renal cyst.
== END 2021-05-31 08:31 | disposition home or self-care (01) ==
LOC: HO.CT 08:30
PROVIDERS: PCP Internal Medicine; Visit Provider Internal Medicine
DX: R10.9 Unspecified abdominal pain (principal)
CPT/HCPCS: 74176

== ENCOUNTER 2021-10-23 09:44 | Outpatient (REF) | payer MEDICARE, SELFPAY ==
[2021-10-23 10:12] LABS: MANUAL DIFF FLAG NO
[2021-10-23 10:29] LABS: Basophils Absolute Auto 0.1 X10*3/uL (0.0-0.2); Basophils Percent Auto 1.1 % (0-2); Eosinophils Absolute Auto 0.2 X10*3/uL (0.0-0.4); Eosinophils Percent Auto 2.7 % (0-4); Hematocrit 33.8 % (37.0-47.0); Imm Gran Abs Auto 0.01 X10*3/uL (0.00-0.03); Imm Gran Pct Auto 0.2 % (0.0-0.4); Lymphocytes Absolute Auto 1.5 X10*3/uL (1.2-4.9); Lymphocytes Percent Auto 26.8 % (20-40); Mean Corpuscular HGB Conc 29.6 g/dl (31.0-35.0); Mean Corpuscular Hemoglobin 26.2 pg (27.0-33.0); Mean Corpuscular Volume 88.5 fL (80.0-98.0); Mean Platelet Volume 9.7 fL (9.4-12.3); Monocytes Absolute Auto 0.5 X10*3/uL (0.1-1.2); Monocytes Percent Auto 8.3 % (2-11); Neutrophils Absolute Auto 3.4 x10*3/uL (2.0-8.3); Neutrophils Percent Auto 60.9 % (45-73); Platelet Count 203 X10*3/uL (160-400); Red Blood Count 3.82 X10*6/uL (4.20-5.50); Red Cell Distribution Width 15.3 % (11.0-16.0); White Blood Count 5.6 X10*3/uL (4.8-10.8)
[2021-10-23 11:40] LABS: Vitamin D 25-OH Total 58.8 ng/mL (>30)
[2021-10-23 11:45] LABS: Anion Gap 12 (12-20); Blood Urea Nitrogen 13 mg/dL (9-16); Calcium 9.6 mg/dL (8.4-10.2); Carbon Dioxide 32 mmol/L (22-29); Chloride 104 mmol/L (96-108); Estimated Glomerular Filt Rate 55; Glucose Random 104 mg/dL (60-115); Iron 55 mcg/dL (30-160); Potassium 4.6 mmol/L (3.3-5.1); Sodium 143 mmol/L (135-145)
[2021-10-23 12:14] LABS: Percent Iron Saturation 16 % (15-50); Total Iron Binding Capacity 354 mcg/dL (228-428); Unsaturated Iron Binding 299 ug/dL
== END 2021-10-23 09:45 | disposition home or self-care (01) ==
LOC: HO.LAB 09:44
PROVIDERS: PCP Internal Medicine; Visit Provider Internal Medicine
DX: D64.9 Anemia, unspecified (principal); I10 Essential (primary) hypertension; E55.9 Vitamin D deficiency, unspecified
CPT/HCPCS: 36415; 80048; 82306; 83540; 85025

== ENCOUNTER 2021-10-29 11:20 | Outpatient (REF) | payer MEDICARE, SELFPAY | END 2021-10-29 11:21 | disposition home or self-care (01) | LOC: HO.LAB 11:20 | PROVIDERS: PCP Internal Medicine; Referring Provider Internal Medicine; Visit Provider Surgery | DX: C44.619 Basal cell carcinoma of skin of left upper limb, including shoulder (principal) | CPT/HCPCS: 11402; 11603; 88305 ==

== ENCOUNTER 2022-01-02 13:33 | Outpatient (REF) | payer MEDICARE, SELFPAY | END 2022-01-02 13:34 | disposition home or self-care (01) | LOC: HO.LAB 13:33 | PROVIDERS: PCP Internal Medicine; Referring Provider Internal Medicine; Visit Provider Surgery | DX: L98.9 Disorder of the skin and subcutaneous tissue, unspecified (principal); L30.8 Other specified dermatitis; Z85.828 Personal history of other malignant neoplasm of skin | CPT/HCPCS: 11104; 11400; 88305; 88312; 99212 ==

== ENCOUNTER 2022-02-12 12:25 | Outpatient (REF) | payer MEDICARE, SELFPAY ==
[2022-02-12 13:47] LABS: MANUAL DIFF FLAG NO
[2022-02-12 14:11] LABS: Basophils Percent Auto 0.7 % (0-2); Eosinophils Absolute Auto 0.1 X10*3/uL (0.0-0.4); Eosinophils Percent Auto 2.3 % (0-4); Hematocrit 33.3 % (37.0-47.0); Hemoglobin 9.6 g/dl (12.0-16.0); Imm Gran Abs Auto 0.02 X10*3/uL (0.00-0.03); Imm Gran Pct Auto 0.3 % (0.0-0.4); Lymphocytes Absolute Auto 1.7 X10*3/uL (1.2-4.9); Lymphocytes Percent Auto 27.9 % (20-40); Mean Corpuscular HGB Conc 28.8 g/dl (31.0-35.0); Mean Corpuscular Hemoglobin 24.9 pg (27.0-33.0); Mean Corpuscular Volume 86.3 fL (80.0-98.0); Monocytes Absolute Auto 0.4 X10*3/uL (0.1-1.2); Monocytes Percent Auto 6.9 % (2-11); Neutrophils Absolute Auto 3.8 x10*3/uL (2.0-8.3); Neutrophils Percent Auto 61.9 % (45-73); Platelet Count 260 X10*3/uL (160-400); Red Blood Count 3.86 X10*6/uL (4.20-5.50); White Blood Count 6.1 X10*3/uL (4.8-10.8)
[2022-02-12 14:32] LABS: Alanine Aminotransferase 8 U/L (0-31); Albumin Level 4.3 g/dL (3.5-5.0); Alkaline Phosphatase 79 U/L (39-117); Anion Gap 12 (12-20); Aspartate Amino Transferase 14 U/L (5-31); Bilirubin Total 0.2 mg/dL (0.0-1.0); Blood Urea Nitrogen 16 mg/dL (9-16); C Reactive Protein 0.35 mg/dL (< or = 0.50); Calcium 9.6 mg/dL (8.4-10.2); Carbon Dioxide 30 mmol/L (22-29); Chloride 104 mmol/L (96-108); Estimated Glomerular Filt Rate > 60; Glucose Random 89 mg/dL (60-115); Iron 19 mcg/dL (30-160); Percent Iron Saturation 5 % (15-50); Potassium 5.1 mmol/L (3.3-5.1); Sodium 141 mmol/L (135-145); Total Iron Binding Capacity 394 mcg/dL (228-428); Total Protein 6.9 g/dL (6.5-8.0); Unsaturated Iron Binding 375 ug/dL
[2022-02-12 14:54] LABS: Free T4 (Free Thyroxine) 0.84 ng/dL (0.71-1.85); Thyroid Stimulating Hormone 0.75 uIU/mL (0.32-4.0)
[2022-02-12 14:55] LABS: Vitamin B12 265 pg/mL (200-900)
== END 2022-02-12 12:26 | disposition home or self-care (01) ==
LOC: HO.10HDL 12:25
PROVIDERS: Visit Provider Internal Medicine
DX: D64.9 Anemia, unspecified (principal); I12.9 Hypertensive chronic kidney disease with stage 1 through stage 4 chronic kidney disease, or unspecified chronic kidney disease; N18.9 Chronic kidney disease, unspecified; G62.9 Polyneuropathy, unspecified; R53.83 Other fatigue
CPT/HCPCS: 36415; 80053; 82607; 83540; 84439; 84443; 85025; 86140

== ENCOUNTER 2022-03-01 19:57 | Emergency (ER) | payer MEDICARE, SELFPAY ==
--- NOTE | ~2022-03-01 | XR_ITS ---
EXAMINATION: XR CHEST CLINICAL INFORMATION: Cough COMPARISON: X-ray of the chest December 2016 TECHNIQUE: Frontal view of the chest was obtained. FINDINGS: Lungs clear. Right subclavian port catheter tip in region of SVC unchanged. Moderate size hiatal hernia unchanged. Cardiomediastinal silhouette otherwise unremarkable. Spondylosis and mild scoliosis of the thoracolumbar spine unchanged. XR/XR chest 1V IMPRESSION: No acute disease
--- NOTE | ~2022-03-01 | XR_ITS ---
EXAMINATION: XR HIP, BILATERAL WITH PELVIS XR KNEE, RIGHT CLINICAL INFORMATION: Fall with pain COMPARISON: 02/14/2021 TECHNIQUE: Frontal view of the pelvis with 2 views of each hip. 4 views of the right knee. FINDINGS: Pelvis/hips: Posterior fusion hardware at L5-S1. 3 cannulated screws transfix the left femoral neck. No acute fracture or dislocation. The hips are well aligned. Mild degenerative change of both hips with subchondral sclerosis present. The pelvic rim is intact. Normal bowel gas pattern. Right knee: No fracture or subluxation. Mild medial compartment joint space narrowing with small marginal osteophytes. Small osteophytes of the patellofemoral compartment and lateral compartment as well. No joint effusion. The soft tissues appear unremarkable. XR/XR knee RT 3V IMPRESSION: No fracture or malalignment. Mild degenerative changes of both hips and of the right knee. Intact fixation hardware of the left femoral neck.
--- NOTE | ~2022-03-01 | CT_ITS ---
EXAMINATION: NONCONTRAST HEAD CT NONCONTRAST CERVICAL SPINE CT INDICATION INFORMATION: Loss of consciousness. Head strike. Fall. COMPARISON: 07/10/2016 TECHNIQUE: Separate noncontrast CT examinations of the head and cervical spine were performed. Coronal and sagittal images were created for each examination at the technologist workstation. This CT examination was performed using dose optimization techniques as appropriate, variously including the following: *Automated exposure control *Adjustment of mA and/or kV according to patient size (this includes techniques or standardized protocols for targeted exams where dose is matched to indication/reason for exam; i.e. extremities or head) *Use of iterative reconstruction technique DLP: 1142 mGy-cm FINDINGS: Head: There is no evidence of acute intracranial hemorrhage or territorial infarction. No abnormal mass effect or midline shift is seen. [place] to white matter differentiation is well preserved. No extra-axial fluid collections are identified. No hydrocephalus. Proportional prominence of the ventricles and sulcal spaces is consistent with mild volume loss. Patchy periventricular and deep white matter hypoattenuation is consistent with moderate small vessel ischemic changes. No acute osseous or soft tissue abnormality. The mastoid air cells and visualized portions of the paranasal sinuses are well aerated. Cervical spine: There is anatomic alignment of the vertebral bodies and posterior elements. The atlantoaxial and atlantooccipital articulations are intact. Vertebral body heights are maintained. There is multilevel intervertebral disc space narrowing with endplate osteophyte formation and facet arthropathy. There is fusion hardware present at C4-C5 and C5-C6 with bony fusion of the vertebral bodies. No evidence of acute fracture. No prevertebral soft tissue swelling. Visualized portions of the lung apices are unremarkable. The thyroid gland is unremarkable. CT/CT cervical spine wo con IMPRESSION: 1. No acute intracranial finding. 2. No acute fracture or malalignment of the cervical spine. Moderate degenerative change.
--- NOTE | ~2022-03-01 | XR_ITS ---
EXAMINATION: XR HIP, BILATERAL WITH PELVIS XR KNEE, RIGHT CLINICAL INFORMATION: Fall with pain COMPARISON: 02/14/2021 TECHNIQUE: Frontal view of the pelvis with 2 views of each hip. 4 views of the right knee. FINDINGS: Pelvis/hips: Posterior fusion hardware at L5-S1. 3 cannulated screws transfix the left femoral neck. No acute fracture or dislocation. The hips are well aligned. Mild degenerative change of both hips with subchondral sclerosis present. The pelvic rim is intact. Normal bowel gas pattern. Right knee: No fracture or subluxation. Mild medial compartment joint space narrowing with small marginal osteophytes. Small osteophytes of the patellofemoral compartment and lateral compartment as well. No joint effusion. The soft tissues appear unremarkable. XR/XR hip BI w PEL1V IMPRESSION: No fracture or malalignment. Mild degenerative changes of both hips and of the right knee. Intact fixation hardware of the left femoral neck.
[2022-03-01 20:03] VITALS: BP 116/68; BP 160/76; PULSE 86; PULSE 88; RESP 18; TEMP 36.1; O2SAT 95; O2SAT 96; BMI 29.4
--- NOTE | 2022-03-01 20:18 | ED_ITS ---
HPI - Fall General Chief Complaint: Fall Stated Complaint: fall rt hip pain Time Seen by Provider: 03/01/22 20:16 Source: patient Mode of arrival: EMS Limitations: no limitations History of Present Illness HPI Narrative: Patient presents emergency department for evaluation after a mechanical fall. She reports that she was trying to get up from the toilet with her walker and states that she twisted the wrong way on her right side and subsequently fell landing onto the left side. She states ?I think I was kind of out of it?. Uncertain whether she lost consciousness, uncertain whether head strike occurred, the fall was unwitnessed as her was in the other room. She denies any head pain, has chronic diffuse neck pain but states it is no worse than normal. Denies any precipitating symptoms such as dizziness, lightheadedness, headache, vision changes, chest pain, palpitations, shortness of breath, difficulty breathing, weakness, numbness or tingling of the extremities. Currently, she reports that she is having pain to the bilateral hips, the right feels worse than the left, in addition is having right knee pain. Related Data Home Medications Medication Instructions Recorded Confirmed atorvastatin 20 mg tablet 1 tab PO DAILY 02/14/21 01/03/22 gabapentin 300 mg capsule 300 mg PO Q4-5H PRN Pain 02/14/21 01/03/22 lactulose 20 gram/30 mL oral 20 g PO DAILY 02/14/21 01/03/22 solution losartan 50 mg tablet 1 tab PO DAILY 02/14/21 01/03/22 metoprolol succinate 25 mg 1 tab PO DAILY 02/14/21 01/03/22 tablet,extended release 24 hr omeprazole 40 mg capsule,delayed 1 cap PO BID 02/14/21 01/03/22 release Previous Rx's Medication Instructions Recorded aspirin 325 mg tablet 325 mg PO BID #60 tabs 02/17/21 oxycodone 5 mg capsule 5 mg PO Q6H PRN pain #10 caps 02/17/21 tramadol 50 mg tablet 1 tab PO 5XD #20 tabs 02/17/21 zolpidem 10 mg tablet 1 tab PO BEDTIME PRN Insomnia #5 02/17/21 tabs Allergies Allergy/AdvReac Type Severity Reaction Status Date / Time No Known Allergies Allergy Unverified 01/02/22 13:49 Review of Systems Review of Systems: Constitutional: No fever. No chills. No weakness. No fatigue. Eye: No swelling. No redness. ENT: No sore throat. No nasal congestion. No sore throat. Skin: No rash. No itching. Cardiovascular: No chest pain. No chest pressure. No palpitations. Respiratory: No shortness of breath. No cough. No sputum production. Gastrointestinal: No anorexia. No nausea. No vomiting. No diarrhea. No abdominal pain. Genitourinary: No burning micturition. No urinary frequency. No incontinence. Neurologic: No headache. No dizziness. No pre-syncope/ syncope. No unilateral weakness. No ataxia. No numbness. No tingling. No change in bowel or bladder control. Musculoskeletal: Positive bilateral hip pain, right knee pain Hematologic: No bleeding. No bruising. Lymphatics: No enlarged lymph nodes. Psychiatric:No depression. No anxiety. Endocrine: No reports of sweating. No cold or heat intolerance. No polyuria. No polydipsia. Yes all other systems are reviewed and are negative PMFSH Past Medical History Attestation statement: The following information was validated with the patient. Medical History Cecum cancer Cervical pain (neck) Fall High cholesterol Hypertension Lumbar back pain with radiculopathy affecting lower extremity Neuropathy Surgical History History of cervical spinal surgery History of lumbar surgery Family History Family History Sister Mesothelioma Social History Social History Household Members: Spouse Housing: House Do you presently have visiting nurse or other home services: No Alcohol intake: current Alcohol intake frequency: does not drink Patient Tobacco Use Status: Never used Tobacco Advance Directives: No Advance Directives Information Provided: No service: No Current occupational status: retired Physical Exam Vital Signs: Vital Signs: Last Vital Signs Temp 96.9 F 03/01/22 20:03 Pulse 88 03/01/22 20:03 Resp 16 03/01/22 22:00 BP 116/68 03/01/22 20:03 Pulse Ox 95 03/01/22 20:03 O2 Del Method 03/01/22 20:03 BMI result Body Mass Index 29.4 Vital signs have been reviewed as normal and appeared to be correct. Blood pressure normal.? Heart rate normal.? Respiration rate normal. Temperature normal.? Oxygen saturation normal. Appearance: Alert.?Oriented to person, place and time. No acute distress.?Normal affect. Head: Normocephalic atraumatic Eyes: Pupils equal, round and reactive to light.? ENT: Pharynx normal.?? Neck: Normal inspection.? Neck supple.? No midline cervical spine tenderness, step-offs, deformities? CVS: Heart sounds normal. Normal heart rate and rhythm.? Pulses normal.?? Respiratory: No respiratory distress.? Lung sounds clear to auscultation bilaterally?? Abdomen: Soft and non-tender. Normoactive bowel sounds. ?? Skin: Skin warm and dry.? Normal skin color.? ?? Extremities: No lower extremity edema.? Limited AROM of the bilateral hips and right knee, DP/PT pulse is 2+ bilaterally, neurovascularly intact distally. L eft lower extremity appears shorter, no rotation on either side. Neuro: Moves all extremities spontaneously. Sensation intact bilaterally. CN II- XII intact. No focal neuro deficits. Course Course Course Narrative: Patient is a 76-year-old female with past medical history of cecum cancer, cervical laminectomy, hypercholesterolemia, hypertension, lumbar radiculopathy, subcapital fracture of left hip, s/p repair 01/2021, who presents emergency department for evaluation after mechanical fall with uncertain LOC/head strike. Based on history fall sounds to be strictly mechanical in nature, had no precipitating symptoms, currently no symptoms outside of pain. Will obtain ba sic lab CBC, CMP, urinalysis in addition to x-ray of the bilateral hips and pelvis, x-ray of the right knee, CT of the head and cervical spine. Reevaluation(s) Reevaluation #1: CBC reveals a normocytic anemia consistent with baseline, CMP overall unremarkable. X-ray of the bilateral hips and right knee are unremarkable no a cute fracture dislocation, hardware intact to left hip. CT of the head and cervical spine reveals no acute intracranial pathology or cervical fracture/subluxation. Discussed these findings with patient. She has been given her home dosages of gabapentin and tramadol for her neuropathy. At the thumb she states that she would like to trial a relation with walk for us she would like to be discharged home tonight. Nursing staff advised, will perform ambulation trial. Time: 22:27 Reevaluation #2: Patient unable to get out of bed without significant assist, unable to stand even with the use of walker due to pain and stiffness. Patient and her do not feel comfortable with returning home tonight. At this time patient will be placed in physician observation as she will need to be evaluated by physical therapy and have case management consultation for assistance with disposition. Time: 23:32 MDM - Fall Medical Records Attestation: I reviewed the patient's medical records. Lab Data Attestation: I reviewed the patient's lab results. Result diagrams: 03/01/22 21:00 03/01/22 21:00 Labs: Lab Results 03/01/22 03/01/22 03/01/22 Range/Units 21:00 21:00 21:00 WBC 7.3 (4.8-10.8) X10*3/uL RBC 3.81 L (4.20-5.50) X10*6/uL Hgb 9.5 L (12.0-16.0) g/dl Hct 31.5 L (37.0-47.0) % MCV 82.7 (80.0-98.0) fL MCH 24.9 L (27.0-33.0) pg MCHC 30.2 L (31.0-35.0) g/dl RDW 14.2 (11.0-16.0) % Plt Count 191 D (160-400) X10*3/uL MPV 9.4 (9.4-12.3) fL Immature Gran % (Auto) 0.3 (0.0-0.4) % Neut % (Auto) 84.4 H (45-73) % Lymph % (Auto) 6.6 L (20-40) % [place] % (Auto) 8.3 (2-11) % Eos % (Auto) 0.1 (0-4) % Baso % (Auto) 0.3 (0-2) % Lymph # (Auto) 0.5 L (1.2-4.9) X10*3/uL [place] # (Auto) 0.6 (0.1-1.2) X10*3/uL Eos # (Auto) 0.0 (0.0-0.4) X10*3/uL Baso # (Auto) 0.0 (0.0-0.2) X10*3/uL Abs Immat Gran (auto) 0.02 (0.00-0.03) X10*3/uL Absolute Neuts (auto) 6.2 (2.0-8.3) x10*3/uL Absolute Nucleated RBC 0.000 (0.0-0.012) X10*3/uL Nucleated RBC % (auto) 0.0 (0.0-0.2) /100WBC Sodium 139 (135-145) mmol/L Potassium 4.4 (3.3-5.1) mmol/L Chloride 101 (96-108) mmol/L Carbon Dioxide 27 (22-29) mmol/L Anion Gap 15 (12-20) BUN 16 (9-16) mg/dL Creatinine 0.87 (0.5-1.4) mg/dL Estim Creat Clear Calc 59.6 Estimated GFR > 60 Random Glucose 114 (60-115) mg/dL Calcium 9.5 (8.4-10.2) mg/dL Total Bilirubin 0.3 (0.0-1.0) mg/dL AST 62 H (5-31) U/L ALT 22 (0-31) U/L Alkaline Phosphatase 78 (39-117) U/L Total Protein 6.9 (6.5-8.0) g/dL Albumin 4.3 (3.5-5.0) g/dL Urine Color YELLOW Urine Appearance CLEAR Urine pH 6.5 (5.0-8.0) Ur Specific [place] 1.010 (1.005-1.025) Urine Protein TRACE (NEG-TRACE) MG/DL Urine Glucose (UA) NEG (NEG) MG/DL Urine Ketones NEG (NEG) MG/DL Urine Blood 3+ H (NEG) Urine Nitrite NEG (NEG) Ur Leukocyte Esterase TRACE H (NEG) Urine RBC 5-9 H (0) /HPF Urine WBC 0 (0-4) /HPF Ur Squamous Epith Cells 1+ /LPF Urine Bacteria 1+ /LPF Imaging Data XR hip/pelvis: Radiologist's impression: FINDINGS: Pelvis/hips: Posterior fusion hardware at L5-S1. 3 cannulated screws transfix the left femoral neck. No acute fracture or dislocation. The hips are well aligned. Mild degenerative change of both hips with subchondral sclerosis present. The pelvic rim is intact. Normal bowel gas pattern. Right knee: No fracture or subluxation. Mild medial compartment joint space narrowing with small marginal osteophytes. Small osteophytes of the patellofemoral compartment and lateral compartment as well. No joint effusion. The soft tissues appear unremarkable.? XR/XR hip BI w PEL1V IMPRESSION: No fracture or malalignment. Mild degenerative changes of both hips and of the right knee. Intact fixation hardware of the left femoral neck.? CT scan - head: Radiologist's impression: CT/CT cervical spine wo con IMPRESSION: ? 1. No acute intracranial finding. 2. No acute fracture or malalignment of the cervical spine. Moderate degenerative change. Discharge Plan Discharge Clinical Impression: Fall Patient Disposition: Still a Patient Prescriptions: No Action losartan 50 mg tablet 1 tab PO DAILY atorvastatin 20 mg tablet 1 tab PO DAILY omeprazole 40 mg capsule,delayed release(DR/EC) 1 cap PO BID gabapentin 300 mg capsule 300 mg PO Q4-5H PRN (Reason: Pain) metoprolol succinate 25 mg tablet extended release 24 hr 1 tab PO DAILY lactulose 20 gram/30 mL Solution 20 g PO DAILY aspirin 325 mg Tablet 325 mg PO BID Qty: 60 0RF oxycodone 5 mg capsule 5 mg PO Q6H PRN (Reason: pain) Qty: 10 0RF tramadol 50 mg tablet 1 tab PO 5XD Qty: 20 0RF zolpidem 10 mg tablet 1 tab PO BEDTIME PRN (Reason: Insomnia) Qty: 5 0RF
[2022-03-01 21:04] LABS: MANUAL DIFF FLAG NO
[2022-03-01 21:06] LABS: Appearance Urine CLEAR; Basophils Percent Auto 0.3 % (0-2); Color Urine YELLOW; Eosinophils Percent Auto 0.1 % (0-4); Glucose Urine UA NEG (NEG); Hematocrit 31.5 % (37.0-47.0); Hemoglobin 9.5 g/dl (12.0-16.0); Imm Gran Abs Auto 0.02 X10*3/uL (0.00-0.03); Imm Gran Pct Auto 0.3 % (0.0-0.4); Leukocyte Esterase Urine TRACE (NEG); Lymphocytes Absolute Auto 0.5 X10*3/uL (1.2-4.9); Lymphocytes Percent Auto 6.6 % (20-40); Mean Corpuscular HGB Conc 30.2 g/dl (31.0-35.0); Mean Corpuscular Hemoglobin 24.9 pg (27.0-33.0); Mean Corpuscular Volume 82.7 fL (80.0-98.0); Mean Platelet Volume 9.4 fL (9.4-12.3); Monocytes Absolute Auto 0.6 X10*3/uL (0.1-1.2); Monocytes Percent Auto 8.3 % (2-11); Neutrophils Absolute Auto 6.2 x10*3/uL (2.0-8.3); Neutrophils Percent Auto 84.4 % (45-73); Nitrite Urine NEG (NEG); PH 6.5 (5.0-8.0); Platelet Count 191 X10*3/uL (160-400); Red Blood Count 3.81 X10*6/uL (4.20-5.50); Red Cell Distribution Width 14.2 % (11.0-16.0); UACC Culture Trigger NO; Urine Blood 3+ (NEG); Urine Ketones NEG (NEG); Urine Protein TRACE MG/DL (NEG-TRACE); White Blood Count 7.3 X10*3/uL (4.8-10.8)
[2022-03-01 21:15] LABS: Bacteria Urine 1+ /LPF; Squamous Epithelial Cell Urine 1+ /LPF; WBC Urine 0 /HPF (0-4)
[2022-03-01 21:26] LABS: Alanine Aminotransferase 22 U/L (0-31); Albumin Level 4.3 g/dL (3.5-5.0); Alkaline Phosphatase 78 U/L (39-117); Anion Gap 15 (12-20); Aspartate Amino Transferase 62 U/L (5-31); Bilirubin Total 0.3 mg/dL (0.0-1.0); Blood Urea Nitrogen 16 mg/dL (9-16); Calcium 9.5 mg/dL (8.4-10.2); Carbon Dioxide 27 mmol/L (22-29); Chloride 101 mmol/L (96-108); Creatinine Clr Calc Pharmacy 59.6; Estimated Glomerular Filt Rate > 60; Glucose Random 114 mg/dL (60-115); Potassium 4.4 mmol/L (3.3-5.1); Sodium 139 mmol/L (135-145); Total Protein 6.9 g/dL (6.5-8.0)
[2022-03-01 22:00] VITALS: RESP 16
[2022-03-01] MEDS: Gabapentin 400 MG CAPSULE PO (22:30)
[2022-03-01] MEDS: traMADoL HCL 50 MG TABLET PO (22:30)
--- NOTE | 2022-03-01 23:43 | PC.NURSE ---
pt unable to tolerate ambulation challenge. plan was to try again after medications have time to work, but pt declines a second ambulation challenge and states she wants to be PT/CM
[2022-03-01 23:50] VITALS: BP 140/61; PULSE 83; RESP 16; TEMP 37.2; O2SAT 98
[2022-03-02] MEDS: Zolpidem Tartrate 5 MG TABLET 10 MG PO (00:04)
--- NOTE | 2022-03-02 01:56 | PC.NURSE ---
pt is resting comfortably in bed. pt in no distress. call grover within reach
[2022-03-02 05:38] VITALS: BP 126/60; PULSE 79; RESP 14; O2SAT 94
[2022-03-02] MEDS: traMADoL HCL 50 MG TABLET PO ×6 (06:39→22:19)
[2022-03-02] MEDS: Gabapentin 300 MG CAPSULE PO ×6 (06:42→22:19)
--- NOTE | 2022-03-02 06:45 | PC.NURSE ---
upon medicating patient, pt states that she has been ringing the call grover for an hour and has not been responded to. This RN told patient that this is not true, we have been in the room, answering her call grover right away, and providing requested assistance related to toileting. pt c/o 06/02 excruciating pain r/t neuropathy. pt is in no distress
--- NOTE | 2022-03-02 07:04 | PC.NURSE ---
Patient stated she was waiting for someone to come and help her, She waited and then used her Bed pad to Urinate. I came in and helped wash patient up, repositioned, and gave her warm blankets
[2022-03-02] MEDS: Omeprazole 40 MG CAPSULE.DR PO ×2 (07:14→15:42)
[2022-03-02 07:57] LABS: COVID-19 Test Positive (Negative); IDNOW Serial# 16C4AD1C
[2022-03-02] MEDS: Metoprolol Succinate ER 25 MG TAB.ER.24H PO (09:06)
[2022-03-02] MEDS: Atorvastatin Calcium 20 MG TABLET PO (09:06)
[2022-03-02] MEDS: Lactulose 20 GM/30 ML SOLUTION PO (09:06)
[2022-03-02] MEDS: Losartan Potassium 50 MG TABLET PO (09:06)
--- NOTE | 2022-03-02 12:10 | MHC.CM.ED ---
Received case management consult overnight. Patient came to the ER due to a fall. Work up essentially negative. Patient is positive for Covid. Met with patient's , Dr Prescott, in regards to discharge planning. Patient lives with , ambulates independently and had no services prior to coming to the hospital. PCP is Dr Mari. Dr Prescott does not believe patient ever completed a HCP. List of facilities contracted with patient's insurance provided to Dr Prescott. T/W explained positive Covid beds are not easily available. Dr Prescott aware referral broadcasted within 20 miles of patient's home to all facilities contracted with patient's insurance. Dr Prescott verbalized understanding. Continue to monitor for d/c needs.
[2022-03-02 12:29] VITALS: BP 120/41; PULSE 93; RESP 14; TEMP 36.8; O2SAT 92
[2022-03-02 22:03] VITALS: BP 133/61; PULSE 82; RESP 18; TEMP 37.4; O2SAT 95
--- NOTE | 2022-03-02 22:14 | PC.NURSE ---
patient said she did not want these meds then decided she did right after this RN charted
[2022-03-02] MEDS: Zolpidem Tartrate 5 MG TABLET PO (22:19)
--- NOTE | 2022-03-02 22:44 | HE.PHANOTE ---
Patient brought in PT OWN Paxlovid. Medication was not order by provider yet. Updated PRABHU Prajapati about interactions with patient medications. Atorvastatin is contraindicated there is recommended to be stopped while on Paxlovid. Tramadol levels can increase due to Paxlovid therefore I recommend to either stop for 5 days or change to a PRN medication. Lastly the effects on Ambien are also increase. Will have morning pharmacist follow-up with AM provider. Kimmie Cardenas, IkerD
[2022-03-03 05:36] VITALS: BP 125/67; PULSE 89; RESP 16; TEMP 37.8; O2SAT 94
[2022-03-03] MEDS: traMADoL HCL 50 MG TABLET PO (07:20)
[2022-03-03] MEDS: Gabapentin 300 MG CAPSULE PO (07:20)
[2022-03-03] MEDS: Omeprazole 40 MG CAPSULE.DR PO (07:21)
[2022-03-03 08:26] VITALS: BP 125/67; PULSE 89; O2SAT 94
[2022-03-03 08:44] VITALS: BP 108/54; PULSE 86; RESP 16; TEMP 36.9; O2SAT 96
--- NOTE | 2022-03-03 09:19 | MHC.CM.ED ---
Addendum entered by Jazlyn Chino 03/03/22 10:37: Patient's primary insurance is Medicare. Colin is a supplemental. Patient can leave ER at 1130am. [facility] booked. [facility] with chart. Patient, Dr Prescott, Sarita RN and Dr Moraes aware. Original Note: Patient remains in ER. Physical therapy eval completed. Short term rehab is recommended. Referral broadcasted in [facility]. [facility] is only facility able to offer a bed at this time. Patient and Dr Prescott aware. [facility] HCP completed, signed and witnessed. Original given to patient. Copy placed in chart. BLS transport will be needed when insurance auth is obtained. Continue to monitor for d/c needs.
[2022-03-03] MEDS: Metoprolol Succinate ER 25 MG TAB.ER.24H PO (09:49)
[2022-03-03] MEDS: Losartan Potassium 50 MG TABLET PO (09:49)
[2022-03-03] MEDS: Atorvastatin Calcium 20 MG TABLET PO (09:49)
== END 2022-03-03 12:10 | disposition skilled nursing facility (03) ==
PROVIDERS: Nurse Practitioner Family; Student in an Organized Health Care Education/Training Program; Emergency Provider Emergency Medicine; PCP Internal Medicine
DX: U07.1 COVID-19 (principal); M25.561 Pain in right knee; M25.552 Pain in left hip; M25.551 Pain in right hip; D64.9 Anemia, unspecified; I10 Essential (primary) hypertension; E78.5 Hyperlipidemia, unspecified; Z91.81 History of falling; Z79.02 Long term (current) use of antithrombotics/antiplatelets; Z79.899 Other long term (current) drug therapy; Z79.82 Long term (current) use of aspirin
CPT/HCPCS: 36415; 70450; 71045; 72125; 73521; 73562; 80053; 81001; 85025; 87635; 97162; 99284; 99285

== ENCOUNTER 2022-05-28 10:42 | Outpatient (REF) | payer MEDICARE, SELFPAY ==
[2022-05-28 13:42] LABS: MANUAL DIFF FLAG NO
[2022-05-28 13:45] LABS: Basophils Absolute Auto 0.1 X10*3/uL (0.0-0.2); Basophils Percent Auto 1.3 % (0-2); Eosinophils Absolute Auto 0.2 X10*3/uL (0.0-0.4); Eosinophils Percent Auto 3.7 % (0-4); Hematocrit 30.1 % (37.0-47.0); Hemoglobin 8.6 g/dl (12.0-16.0); Imm Gran Abs Auto 0.01 X10*3/uL (0.00-0.03); Imm Gran Pct Auto 0.2 % (0.0-0.4); Lymphocytes Absolute Auto 1.2 X10*3/uL (1.2-4.9); Lymphocytes Percent Auto 22.3 % (20-40); Mean Corpuscular HGB Conc 28.6 g/dl (31.0-35.0); Mean Corpuscular Hemoglobin 24.6 pg (27.0-33.0); Mean Platelet Volume 10.2 fL (9.4-12.3); Monocytes Absolute Auto 0.5 X10*3/uL (0.1-1.2); Monocytes Percent Auto 8.6 % (2-11); Neutrophils Absolute Auto 3.5 x10*3/uL (2.0-8.3); Neutrophils Percent Auto 63.9 % (45-73); Platelet Count 227 X10*3/uL (160-400); Red Cell Distribution Width 14.9 % (11.0-16.0); White Blood Count 5.5 X10*3/uL (4.8-10.8)
[2022-05-28 14:00] LABS: Alanine Aminotransferase 7 U/L (0-31); Alkaline Phosphatase 55 U/L (39-117); Anion Gap 13 (12-20); Aspartate Amino Transferase 14 U/L (5-31); Bilirubin Total 0.3 mg/dL (0.0-1.0); Blood Urea Nitrogen 17 mg/dL (9-16); Calcium 9.1 mg/dL (8.4-10.2); Carbon Dioxide 30 mmol/L (22-29); Chloride 104 mmol/L (96-108); Estimated Glomerular Filt Rate > 60; Glucose Random 84 mg/dL (60-115); Potassium 4.5 mmol/L (3.3-5.1); Sodium 142 mmol/L (135-145); Total Protein 6.4 g/dL (6.5-8.0)
== END 2022-05-28 10:43 | disposition home or self-care (01) ==
LOC: HO.10HDL 10:42
PROVIDERS: Visit Provider Internal Medicine
DX: D64.9 Anemia, unspecified (principal); I10 Essential (primary) hypertension; K21.9 Gastro-esophageal reflux disease without esophagitis
CPT/HCPCS: 36415; 80053; 85025

== ENCOUNTER → 2022-08-06 15:46 | Outpatient (BNVA) | payer MEDICARE, SELFPAY | PROVIDERS: PCP Internal Medicine; Visit Provider Surgery | DX: K64.8 Other hemorrhoids (principal); K64.4 Residual hemorrhoidal skin tags | CPT/HCPCS: 46600; 99202 ==

== ENCOUNTER 2022-08-21 22:33 | Emergency (ER) | payer MEDICARE, SELFPAY ==
--- NOTE | ~2022-08-21 | XR_ITS ---
EXAMINATION: XR sacrum coccyx min 2V, XR knee RT 2V, XR hip RT w PEL1V CLINICAL INFORMATION: Reason for Exam fall, pain COMPARISON: 03/01/2022 TECHNIQUE: Single AP view the pelvis and 2 views of the right hip 3 views of the sacrum 2 views of the knee and FINDINGS: Pelvis/right hip and sacrum/coccyx: No acute fracture or dislocation. Posterior spinal fusion at L5-S1. 3 cannulated screws present in the femoral neck. No evidence of hardware failure or complication. Mild bilateral sacroiliac arthrosis. Sacral arcuate lines are intact. Sacrococcygeal alignment maintained. Right knee: No acute fracture or dislocation. Small tricompartmental marginal osteophytes. Mild medial tibiofemoral compartment joint space narrowing. No joint effusion. XR/XR sacrum coccyx min 2V IMPRESSION: * No acute fracture or dislocation. * No evidence of hardware failure or complication. * Degenerative changes as described.
--- NOTE | ~2022-08-21 | XR_ITS ---
EXAMINATION: XR sacrum coccyx min 2V, XR knee RT 2V, XR hip RT w PEL1V CLINICAL INFORMATION: Reason for Exam fall, pain COMPARISON: 03/01/2022 TECHNIQUE: Single AP view the pelvis and 2 views of the right hip 3 views of the sacrum 2 views of the knee and FINDINGS: Pelvis/right hip and sacrum/coccyx: No acute fracture or dislocation. Posterior spinal fusion at L5-S1. 3 cannulated screws present in the femoral neck. No evidence of hardware failure or complication. Mild bilateral sacroiliac arthrosis. Sacral arcuate lines are intact. Sacrococcygeal alignment maintained. Right knee: No acute fracture or dislocation. Small tricompartmental marginal osteophytes. Mild medial tibiofemoral compartment joint space narrowing. No joint effusion. XR/XR hip RT w PEL1V IMPRESSION: * No acute fracture or dislocation. * No evidence of hardware failure or complication. * Degenerative changes as described.
--- NOTE | ~2022-08-21 | XR_ITS ---
EXAMINATION: XR sacrum coccyx min 2V, XR knee RT 2V, XR hip RT w PEL1V CLINICAL INFORMATION: Reason for Exam fall, pain COMPARISON: 03/01/2022 TECHNIQUE: Single AP view the pelvis and 2 views of the right hip 3 views of the sacrum 2 views of the knee and FINDINGS: Pelvis/right hip and sacrum/coccyx: No acute fracture or dislocation. Posterior spinal fusion at L5-S1. 3 cannulated screws present in the femoral neck. No evidence of hardware failure or complication. Mild bilateral sacroiliac arthrosis. Sacral arcuate lines are intact. Sacrococcygeal alignment maintained. Right knee: No acute fracture or dislocation. Small tricompartmental marginal osteophytes. Mild medial tibiofemoral compartment joint space narrowing. No joint effusion. XR/XR knee RT 2V IMPRESSION: * No acute fracture or dislocation. * No evidence of hardware failure or complication. * Degenerative changes as described.
[2022-08-21 22:54] VITALS: BP 140/90; PULSE 68; PULSE 80; RESP 16; TEMP 36.4; O2SAT 95; BMI 29.8
--- NOTE | 2022-08-21 23:17 | ED.FALL ---
HPI - Fall General Chief Complaint: Fall Stated Complaint: fall Time Seen by Provider: 08/21/22 23:04 Source: patient and EMS Mode of arrival: EMS Limitations: no limitations History of Present Illness HPI Narrative: Patient comes to the emergency room complaining of a fall. Patient states she landed on her buttocks, complaining of right-sided hip pain and right knee pain. Patient denies hitting her head or loss of consciousness, patient is not taking any blood thinners. Related Data Home Medications Medication Instructions Recorded Confirmed atorvastatin 20 mg tablet 1 tab PO DAILY 02/14/21 03/02/22 gabapentin 300 mg capsule 300 mg PO Q4-5H 02/14/21 03/02/22 lactulose 20 gram/30 mL oral 20 g PO DAILY 02/14/21 03/02/22 solution losartan 50 mg tablet 1 tab PO DAILY 02/14/21 03/02/22 metoprolol succinate 25 mg 1 tab PO DAILY 02/14/21 03/02/22 tablet,extended release 24 hr omeprazole 40 mg capsule,delayed 1 cap PO BID 02/14/21 03/02/22 release tramadol 50 mg tablet 1 tab PO Q4-5H 03/01/22 03/02/22 Previous Rx's Medication Instructions Recorded zolpidem 10 mg tablet 1 tab PO BEDTIME PRN Insomnia #5 02/17/21 tabs lidocaine 5 % topical cream 1 appl topical TID PRN pain #15 08/06/22 grams Allergies Allergy/AdvReac Type Severity Reaction Status Date / Time No Known Allergies Allergy Verified 08/21/22 22:54 Review of Systems Review of Systems: Constitutional : No Weight loss, No Fever, No Chills, No Night Sweats, No Fatigue, No Malaise ENT/Mouth : No Hearing loss, No Ear Pain, No Nasal Congestion, No Sinus Pain, No Hoarseness, No sore throat, No Rhinorrhea, No Swallowing Difficulty Eyes: No Eye Pain, No Swelling, No Redness, No Foreign Body, No Discharge, No Vision Changes Cardiovascular : No Chest Pain, No SOB, No Dyspnea on Exertion, No Orthopnea, No Edema, No Palpitations Respiratory : No Cough, No Sputum, No Wheezing, No Smoke Exposure, No Dyspnea Gastrointestinal : No Nausea, No Vomiting, No Diarrhea, No Constipation, No abdominal Pain, No Hematochezia, No Melena Genitourinary : no irregular bleeding, No Dysuria, No Urinary Frequency, No Hematuria, No Urinary Incontinence, No Urgency, No Flank Pain, No Urinary Flow Changes, No Hesitancy Musculoskeletal complaining of right-sided hip pain, right-sided knee pain Skin : No Skin Lesions, No rash Neuro : No Weakness, No Numbness, No Paresthesias, No Loss of Consciousness, No Dizziness, No Headache Psych : No Anxiety/Panic, No Depression, No SI/HI/AH/VH, No Social Issues, Heme/Lymph: No Bruising, No Bleeding,No Lymphadenopathy Endocrine : No Polyuria, No Polydipsia, No Temperature Intolerance [facility] Past Medical History Medical History Cecum cancer Cervical pain (neck) Fall Hemorrhoids with complication High cholesterol Hypertension Lumbar back pain with radiculopathy affecting lower extremity Neuropathy Surgical History History of cervical spinal surgery History of lumbar surgery Family History Family History Sister Mesothelioma Social History Social History Household Members: Spouse Housing: House Do you presently have visiting nurse or other home services: No Alcohol intake: current Alcohol intake frequency: does not drink Patient Tobacco Use Status: Never used Tobacco Advance Directives: No Advance Directives Information Provided: No service: No Current occupational status: retired Physical Exam Vital Signs: Vital Signs: Last Vital Signs Temp 97.5 F 08/21/22 22:54 Pulse 68 08/21/22 22:54 Resp 16 08/21/22 22:54 Pulse Ox 95 08/21/22 22:54 O2 Del Method 08/21/22 22:54 BMI result Body Mass Index 29.8 Const: Other: Appearance: Alert. Oriented X3. No acute distress. Eyes: Pupils equal, round and reactive to light. ENT: Pharynx normal. Neck: Normal inspection. Neck supple. No lymph nodes noted. No crepitus CVS: Normal heart rate and rhythm. Pulses normal. Normal S1 and S2 Respiratory: No respiratory distress. Breath sounds normal. No Wheezing. No rales Abdomen: Soft and nontender. No rigidity. No distention. Skin: Skin warm and dry. Normal skin color. Normal skin turgor. Extremities: No lower extremity edema. No Lacerations. No Rash, no significant pain to palpation over the hip. Neuro: Oriented X 3. No motor deficit. No sensory deficit. Moving all extremities. No slurred speech. CN 2 through 12 grossly intact Psych: calm, cooperative, normal affect Course Course Course Narrative: Imaging of the sacrum/coccyx, right-side hip and right knee pending. At this time, patient declined pain medication X-rays are negative, discussed with the patient. Patient was able to walk with a walker which she uses at baseline. Patient instructed to follow-up with her primary care physician, she may need an MRI of the right knee. Medical Decision Making Radiology Impression Discussion of test interpretation with radiology: I have reviewed the radiologist's reading. Radiologist Impression: Pelvis/right hip and sacrum/coccyx: No acute fracture or dislocation. Posterior spinal fusion at L5-S1. 3 cannulated screws present in the femoral neck. No evidence of hardware failure or complication. Mild bilateral sacroiliac arthrosis. Sacral arcuate lines are intact. Sacrococcygeal alignment maintained. Right knee: No acute fracture or dislocation. Small tricompartmental marginal osteophytes. Mild medial tibiofemoral compartment joint space narrowing. No joint effusion. XR/XR sacrum coccyx min 2V IMPRESSION: *? No acute fracture or dislocation. *? No evidence of hardware failure or complication. *? Degenerative changes as described. Discharge Plan Discharge Clinical Impression: Fall, Multiple contusions Patient Disposition: Home, Self-Care Instructions: Fall Prevention (ED) Additional Instructions: Please follow-up with your primary care physician tomorrow. If you have any worsening or new symptoms, please return to the emergency room or call 911 Prescriptions: No Action losartan 50 mg tablet 1 tab PO DAILY atorvastatin 20 mg tablet 1 tab PO DAILY omeprazole 40 mg capsule,delayed release(DR/EC) 1 cap PO BID gabapentin 300 mg capsule 300 mg PO Q4-5H metoprolol succinate 25 mg tablet extended release 24 hr 1 tab PO DAILY lactulose 20 gram/30 mL Solution 20 g PO DAILY zolpidem 10 mg tablet 1 tab PO BEDTIME PRN (Reason: Insomnia) Qty: 5 0RF tramadol 50 mg tablet 1 tab PO Q4-5H lidocaine 5 % cream 1 appl topical TID PRN (Reason: pain) Qty: 15 0RF
--- NOTE | 2022-08-22 01:21 | MHC.EDTECH ---
Pt ambulated to bathroom with walker.
[2022-08-22 01:22] VITALS: BP 134/76; PULSE 71; RESP 16; O2SAT 98
== END 2022-08-22 01:26 | disposition home or self-care (01) ==
PROVIDERS: Emergency Provider Emergency Medicine
DX: S70.01XA Contusion of right hip, initial encounter (principal); S80.01XA Contusion of right knee, initial encounter; W18.30XA Fall on same level, unspecified, initial encounter; I10 Essential (primary) hypertension; E78.5 Hyperlipidemia, unspecified; Y93.9 Activity, unspecified; Y92.012 Bathroom of single-family (private) house as the place of occurrence of the external cause; Y99.9 Unspecified external cause status; Z91.81 History of falling; Z79.02 Long term (current) use of antithrombotics/antiplatelets; Z79.899 Other long term (current) drug therapy
CPT/HCPCS: 72220; 73502; 73560; 99283

== ENCOUNTER 2022-09-12 10:41 | Outpatient (REF) | payer MEDICARE, OTHER, SELFPAY ==
--- NOTE | ~2022-09-12 | CT_ITS ---
EXAMINATION: CT HEAD WITHOUT CONTRAST CLINICAL INFORMATION: Fall. COMPARISON: CT head 03/01/2022 TECHNIQUE: Contiguous axial imaging was performed from the skull base to vertex without intravenous administration of contrast. This CT examination was performed using dose optimization techniques as appropriate, variously including the following: *Automated exposure control *Adjustment of mA and/or kV according to patient size (this includes techniques or standardized protocols for targeted exams where dose is matched to indication/reason for exam; i.e. extremities or head) *Use of iterative reconstruction technique DLP: 679 mGy-cm FINDINGS: Moderate diffuse commensurate prominence of ventricles and sulci. No intracranial hemorrhage, tumors or acute infarcts. Moderate periventricular and subcortical white matter patchy hypodensities. Bilateral ocular lens extractions. Mild hyperostosis frontalis interna. No significant opacification of the visualized paranasal sinuses, mastoid air cells and middle ear cavities. CT/CT head/brain wo IV con IMPRESSION: 1. No acute intracranial abnormalities. 2. Moderate white matter chronic small vessel ischemic changes.
== END 2022-09-12 10:42 | disposition home or self-care (01) ==
LOC: HO.CT 10:41
PROVIDERS: PCP Internal Medicine; Visit Provider Internal Medicine
DX: Z91.81 History of falling (principal)
CPT/HCPCS: 70450

== ENCOUNTER 2023-01-06 11:57 | Inpatient (IN) | payer MEDICARE, OTHER, SELFPAY ==
[2023-01-06] VITALS (9 sets, daily range): BP systolic 124–180; BP diastolic 50–89; PULSE 64–92; RESP 12–18; TEMP 35.6–36.6; O2SAT 97–99; BMI 27.8; BMI 31.1
--- NOTE | ~2023-01-06 | CT_ITS ---
EXAMINATION: CT ABDOMEN AND PELVIS WITH AND WITHOUT CONTRAST: CT GI BLEEDING STUDY CLINICAL INFORMATION: Reason for Exam Bright red blood per rectum last night,. COMPARISON: No pertinent prior studies are available for comparison. TECHNIQUE: Multidetector volumetric imaging was performed from the lung bases to the pubic symphysis before and after the administration of: Intravenous contrast: 85 mL Omnipaque 350 No contrast reaction reported MIP coronal, sagittal and coronal reformatted images were obtained on the technologist workstation. This CT examination was performed using dose optimization techniques as appropriate, variously including the following: *Automated exposure control *Adjustment of mA and/or kV according to patient size (this includes techniques or standardized protocols for targeted exams where dose is matched to indication/reason for exam; i.e. extremities or head) *Use of iterative reconstruction technique Total exam dose-length product 1762 mGy-cm FINDINGS: STOMACH: Large hiatal hernia. No abnormal wall thickening or mass. No intraluminal contrast accumulation to suggest hemorrhage. SMALL BOWEL: No abnormal wall thickening or dilation. No intraluminal contrast accumulation to suggest hemorrhage. COLON: No intraluminal contrast accumulation to suggest hemorrhage. No colonic wall thickening or pericolonic inflammatory changes. Enterocolic anastomosis in the right midabdomen. LUNG BASES: Prominent heart. Minimal groundglass opacity at the anterior lung bases. Minimal basilar atelectasis. PLEURA: No pleural effusion. LIVER, GALLBLADDER, AND BILIARY TREE: The liver is normal in size, shape, and attenuation. No focal hepatic lesion or biliary ductal dilatation is present. The gallbladder is unremarkable with no evidence of radiopaque gallstones, gallbladder wall thickening, or obvious pericholecystic inflammatory changes. PANCREAS: Normal; no mass or surrounding fluid. SPLEEN: Normal size. No focal lesion. ADRENAL GLANDS: Normal; no mass. KIDNEYS AND URETERS: The kidneys are normal in size, shape, and attenuation. No hydronephrosis, hydroureter, or calculi. ABDOMINAL WALL: No hernia seen. LYMPHOVASCULAR STRUCTURES: No lymphadenopathy. The aorta is normal in caliber. Mild atherosclerotic calcifications. BLADDER: No focal mass or wall thickening seen. No bladder calculi. PELVIC VISCERA: Probable exophytic uterine fibroid. No new mass. OSSEOUS STRUCTURES: No acute or suspicious osseous abnormality. Advanced degenerative changes throughout the spine with vacuum disc phenomenon throughout. Fusion at L5-S1. CT/CT gi bleed abd pel wo/w IVcon IMPRESSION: 1. No evidence of active GI bleed. 2. Large hiatal hernia. This is similar to prior.
--- NOTE | 2023-01-06 11:59 | ED_ITS ---
HPI - Dizziness General Chief Complaint: General Medical <Rhoda Smith NP - Last Filed: 01/06/23 12:06> Stated Complaint: Lightheaded <Rhoda Smith NP - Last Filed: 01/06/23 12:06> Time Seen by Provider: 01/06/23 12:24 <Rhoda Smith NP - Last Filed: 01/06/23 12:06> Source: patient <Mindy Moraes MD - Last Filed: 01/06/23 16:41> Mode of arrival: ambulatory <Mindy Moraes MD - Last Filed: 01/06/23 16:41> History of Present Illness HPI Narrative: 77-year-old female who presents with complaints of some mild light headedness, denies any shortness of breath/diaphoresis/chest pain/palpitations/GI or symptoms but states that yesterday she was a little constipated and took some medication to help her have a bowel movement and then states that she had a baby last night? and that there was some bleeding with th e bowel movement. Patient also endorses fatigue and reports increased epigastric discomfort with indigestion/acid reflux and has a remote history of cecal cancer. Patient does endorse that she has been using aspirin for the past couple of weeks due to increased MSK complaints. <Mindy Moraes MD - Last Filed: 01/06/23 16:41> Related Data Home Medications: Home Medications Medication Instructions Recorded Confirmed atorvastatin 20 mg tablet 1 tab PO DAILY 02/14/21 03/02/22 gabapentin 300 mg capsule 300 mg PO Q4-5H 02/14/21 03/02/22 lactulose 20 gram/30 mL oral 20 g PO DAILY 02/14/21 03/02/22 solution losartan 50 mg tablet 1 tab PO DAILY 02/14/21 03/02/22 metoprolol succinate 25 mg 1 tab PO DAILY 02/14/21 03/02/22 tablet,extended release 24 hr omeprazole 40 mg capsule,delayed 1 cap PO BID 02/14/21 03/02/22 release tramadol 50 mg tablet 1 tab PO Q4-5H 03/01/22 03/02/22 Previous Rx's Medication Instructions Recorded zolpidem 10 mg tablet 1 tab PO BEDTIME PRN Insomnia #5 02/17/21 tabs lidocaine 5 % topical cream 1 appl topical TID PRN pain #15 08/06/22 grams <Rhoda Smith NP - Last Filed: 01/06/23 12:06> Allergies/Adverse Reactions: Allergies Allergy/AdvReac Type Severity Reaction Status Date / Time No Known Allergies Allergy Verified 01/06/23 12:08 <Rhoda Smith NP - Last Filed: 01/06/23 12:06> Review of Systems Review of Systems: Pertinent positives and negatives as stated in HPI <Mindy Moraes MD - Last Filed: 01/06/23 16:41> PMFSH Past Medical History Source: nursing notes reviewed <Mindy Moraes MD - Last Filed: 01/06/23 16:41> Medical History: Medical History Cecum cancer Cervical pain (neck) Fall Hemorrhoids with complication High cholesterol Hypertension Lumbar back pain with radiculopathy affecting lower extremity Neuropathy <Rhoda Smith NP - Last Filed: 01/06/23 12:06> Surgical History: Surgical History History of cervical spinal surgery History of lumbar surgery <Rhoda Smith NP - Last Filed: 01/06/23 12:06> Family History Family History: Family History Sister Mesothelioma <Rhoda Smith NP - Last Filed: 01/06/23 12:06> Social History Social History: Social History Household Members: Spouse Housing: House Do you presently have visiting nurse or other home services: No Alcohol intake: never Patient Tobacco Use Status: Never used Tobacco Smoked in Last 30 Days: No Use of substances other than those prescribed or required for medical reasons: No Advance Directives: Yes Advance Directives on File: Yes Advance Directives Date on File: 03/03/22 service: No Current occupational status: retired <Rhoda Smith NP - Last Filed: 01/06/23 12:06> Physical Exam Vital Signs: Vital Signs: Last Vital Signs Temp 96.1 F L 01/06/23 15:10 Pulse 71 01/06/23 16:07 Resp 12 01/06/23 16:07 BP 166/77 H 01/06/23 16:07 Pulse Ox 99 01/06/23 16:07 O2 Del Method Room Air 01/06/23 16:07 BMI result Body Mass Index 27.8 <Rhoda Smith NP - Last Filed: 01/06/23 12:06> Vital Signs: Last Vital Signs Temp 96.1 F L 01/06/23 15:10 Pulse 71 01/06/23 16:07 Resp 12 01/06/23 16:07 BP 166/77 H 01/06/23 16:07 Pulse Ox 99 01/06/23 16:07 O2 Del Method Room Air 01/06/23 16:07 BMI result Body Mass Index 27.8 VITAL SIGNS: Reviewed. GENERAL: Well developed, well nourished, in no acute distress. HEAD: Normocephalic/atraumatic EYES: PERRLA, EOMI EARS: Ext canals without abnormality NOSE: Nares patent bilateral OROPHARYNX: no oral lesions noted, posterior pharynx clear NECK: Supple, no adenopathy LUNGS: Normal breath sounds. No adventitious sounds or accessory muscle use. SpO2<98> CARDIOVASCULAR: Regular rate and rhythm without noted murmurs ABDOMEN: Soft, non-tender, non-distended with bowel sounds. ESTRELLA: Obvious external hemorrhoids and left side with apparent friability an inf lamed internal hemorrhoid partially protruding, mucous/blood on finger tip no evidence of melena MUSCULOSKELETAL: No tenderness, deformities, or effusions noted on gross inspection. EXTREMITIES: No cyanosis, clubbing or edema. SKIN: Inspection of the skin reveals no rashes NEUROLOGIC: Alert and oriented x 4. Strength and sensation to light touch were grossly intact x 4. <Mindy Moraes MD - Last Filed: 01/06/23 16:41> Course Course Course Narrative: This is a rapid medical exam. Deferred additional HPI, ROS, PE to primary provider. 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 Had outpatient labs 01/05 which showed hgb 6.9, hct 24.7 Has been feeling lightheaded, has been having heartburn the last few weeks, taking tums frequently. only occasional aspirin use Will obtain labs, EKG, orthos, occult VSS <Rhoda Smith NP - Last Filed: 01/06/23 12:06> Medications Administered Discontinued Medications Generic Name Dose Route Start Last Admin Trade Name Freq PRN Reason Stop Dose Admin Sodium Chloride 1,000 mls @ 999 mls/hr 01/06/23 13:45 01/06/23 14:44 Ns IV 01/06/23 14:45 999 mls/hr .Q1H1M ISAIAH Administration <Rhoda Smith NP - Last Filed: 01/06/23 12:06> Medications Administered Discontinued Medications Generic Name Dose Route Start Last Admin Trade Name Freq PRN Reason Stop Dose Admin Sodium Chloride 1,000 mls @ 999 mls/hr 01/06/23 13:45 01/06/23 14:44 Ns IV 01/06/23 14:45 999 mls/hr .Q1H1M ISAIAH Administration <Mindy Moraes MD - Last Filed: 01/06/23 16:41> Medical Decision Making Medical Decision Making MDM Narrative: 77-year-old female with history and clinical presentation most consistent for a combination of medication and anemia likely contributing to feelings of lightheadedness. Review of all investigations significant for acute anemia likely contributing to patient's lightheadedness, although digital rectal exam demonstrated what appeared to be blood-tinged mucus the guaiac was returned as negative. However, objective and symptoms are consistent to suggest GI bleed. Patient remains hemodynamically stable in suspect a component of this may be coming from the use of aspirin over the past couple of weeks as patient does report epigastric discomfort. 1 unit PRBCs was ordered, patient was consented for blood juan sfusion and nose all results and findings. In addition, this was discussed with significant other. 1611: I discussed case inpatient hospitalist who accepts admission. I also communicated that the CT to evaluate for GI bleed was still pending. <Mindy Moraes MD - Last Filed: 01/06/23 16:41> Differential Diagnosis Please see the discussion above <Mindy Mroaes MD - Last Filed: 01/06/23 16:41> Consult Healthcare Provider Management of the patient was discussed with: Hospitalist <Mindy Moraes MD - Last Filed: 01/06/23 16:41> Please see the discussion above <Mindy Moraes MD - Last Filed: 01/06/23 16:41> Lab Data Please see the discussion above <Mindy Moraes MD - Last Filed: 01/06/23 16:41> Result Diagrams: 01/06/23 12:44 01/06/23 12:44 <Rhoda Smith NP - Last Filed: 01/06/23 12:06> Labs: Lab Results 01/06/23 01/06/23 01/06/23 Range/Units 11:12 12:43 12:44 WBC 7.2 (4.8-10.8) X10*3/uL RBC 3.29 L (4.20-5.50) X10*6/uL Hgb 6.9 L* (12.0-16.0) g/dl Hct 24.8 L (37.0-47.0) % MCV 75.4 L (80.0-98.0) fL MCH 21.0 L (27.0-33.0) pg MCHC 27.8 L (31.0-35.0) g/dl RDW 17.6 H (11.0-16.0) % Plt Count 306 D (160-400) X10*3/uL MPV 10.7 (9.4-12.3) fL Immature Gran % (Auto) 0.4 (0.0-0.4) % Neut % (Auto) 69.5 (45-73) % Lymph % (Auto) 18.4 L (20-40) % Grand % (Auto) 8.2 (2-11) % Eos % (Auto) 2.5 (0-4) % Baso % (Auto) 1.0 (0-2) % Lymph # (Auto) 1.3 (1.2-4.9) X10*3/uL Grand # (Auto) 0.6 (0.1-1.2) X10*3/uL Eos # (Auto) 0.2 (0.0-0.4) X10*3/uL Baso # (Auto) 0.1 (0.0-0.2) X10*3/uL Abs Immat Gran (auto) 0.03 (0.00-0.03) X10*3/uL Absolute Neuts (auto) 5.0 (2.0-8.3) x10*3/uL Absolute Nucleated RBC 0.000 (0.0-0.012) X10*3/uL Nucleated RBC % (auto) 0.0 (0.0-0.2) /100WBC PT 10.5 (10.0-13.1) SEC INR 0.9 (0.9-1.1) Sodium (135-145) mmol/L Potassium (3.3-5.1) mmol/L Chloride (96-108) mmol/L Carbon Dioxide (22-29) mmol/L Anion Gap (12-20) BUN (9-16) mg/dL Creatinine (0.5-1.4) mg/dL Estim Creat Clear Calc Estimated GFR Random Glucose (60-115) mg/dL Calcium (8.4-10.2) mg/dL Total Bilirubin (0.0-1.0) mg/dL Direct Bilirubin (0.0-0.5) mg/dL AST (5-31) U/L ALT (0-31) U/L Alkaline Phosphatase (39-117) U/L Total Protein (6.5-8.0) g/dL Albumin (3.5-5.0) g/dL Urine Color Urine Appearance Urine pH (5.0-9.0) Ur Specific [place] (1.005-1.025) Urine Protein (Neg-Trace) mg/dL Urine Glucose (UA) (Negative) mg/dL Urine Ketones (Negative) mg/dL Urine Blood (Negative) Urine Nitrite (Negative) Ur Leukocyte Esterase (Negative) Urine RBC (0-2) /HPF Urine WBC (0-5) /HPF Ur Squamous Epith Cells (0-2) /HPF Urine Bacteria (None Seen) Hyaline Casts (0-2) /LPF Stool Occult Blood (NEGATIVE) Blood Type O Positive Antibody Screen NEGATIVE Crossmatch See Detail 01/06/23 01/06/23 01/06/23 Range/Units 12:44 13:25 14:36 WBC (4.8-10.8) X10*3/uL RBC (4.20-5.50) X10*6/uL Hgb (12.0-16.0) g/dl Hct (37.0-47.0) % MCV (80.0-98.0) fL MCH (27.0-33.0) pg MCHC (31.0-35.0) g/dl RDW (11.0-16.0) % Plt Count (160-400) X10*3/uL MPV (9.4-12.3) fL Immature Gran % (Auto) (0.0-0.4) % Neut % (Auto) (45-73) % Lymph % (Auto) (20-40) % Grand % (Auto) (2-11) % Eos % (Auto) (0-4) % Baso % (Auto) (0-2) % Lymph # (Auto) (1.2-4.9) X10*3/uL [place] # (Auto) (0.1-1.2) X10*3/uL Eos # (Auto) (0.0-0.4) X10*3/uL Baso # (Auto) (0.0-0.2) X10*3/uL Abs Immat Gran (auto) (0.00-0.03) X10*3/uL Absolute Neuts (auto) (2.0-8.3) x10*3/uL Absolute Nucleated RBC (0.0-0.012) X10*3/uL Nucleated RBC % (auto) (0.0-0.2) /100WBC PT (10.0-13.1) SEC INR (0.9-1.1) Sodium 141 (135-145) mmol/L Potassium 4.5 (3.3-5.1) mmol/L Chloride 107 (96-108) mmol/L Carbon Dioxide 30 H (22-29) mmol/L Anion Gap 9 L (12-20) BUN 17 H (9-16) mg/dL Creatinine 0.88 (0.5-1.4) mg/dL Estim Creat Clear Calc 56.4 Estimated GFR > 60 Random Glucose 91 (60-115) mg/dL Calcium 9.4 (8.4-10.2) mg/dL Total Bilirubin 0.3 (0.0-1.0) mg/dL Direct Bilirubin 0.1 (0.0-0.5) mg/dL AST 12 (5-31) U/L ALT 7 (0-31) U/L Alkaline Phosphatase 76 (39-117) U/L Total Protein 6.3 L (6.5-8.0) g/dL Albumin 3.8 (3.5-5.0) g/dL Urine Color Yellow Urine Appearance Clear Urine pH 7.0 (5.0-9.0) Ur Specific [place] <= 1.005 (1.005-1.025) Urine Protein Negative (Neg-Trace) mg/dL Urine Glucose (UA) Negative (Negative) mg/dL Urine Ketones Negative (Negative) mg/dL Urine Blood Negative (Negative) Urine Nitrite Negative (Negative) Ur Leukocyte Esterase Trace H (Negative) Urine RBC 0-2 (0-2) /HPF Urine WBC 0-5 (0-5) /HPF Ur Squamous Epith Cells 0-2 (0-2) /HPF Urine Bacteria None Seen (None Seen) Hyaline Casts 0-2 (0-2) /LPF Stool Occult Blood NEGATIVE (NEGATIVE) Blood Type Antibody Screen Crossmatch <Rhoda Smith [employer] - Last Filed: 01/06/23 12:06> Lab Results 01/06/23 01/06/23 01/06/23 Range/Units 11:12 12:43 12:44 WBC 7.2 (4.8-10.8) X10*3/uL RBC 3.29 L (4.20-5.50) X10*6/uL Hgb 6.9 L* (12.0-16.0) g/dl Hct 24.8 L (37.0-47.0) % MCV 75.4 L (80.0-98.0) fL MCH 21.0 L (27.0-33.0) pg MCHC 27.8 L (31.0-35.0) g/dl RDW 17.6 H (11.0-16.0) % Plt Count 306 D (160-400) X10*3/uL MPV 10.7 (9.4-12.3) fL Immature Gran % (Auto) 0.4 (0.0-0.4) % Neut % (Auto) 69.5 (45-73) % Lymph % (Auto) 18.4 L (20-40) % Grand % (Auto) 8.2 (2-11) % Eos % (Auto) 2.5 (0-4) % Baso % (Auto) 1.0 (0-2) % Lymph # (Auto) 1.3 (1.2-4.9) X10*3/uL Grand # (Auto) 0.6 (0.1-1.2) X10*3/uL Eos # (Auto) 0.2 (0.0-0.4) X10*3/uL Baso # (Auto) 0.1 (0.0-0.2) X10*3/uL Abs Immat Gran (auto) 0.03 (0.00-0.03) X10*3/uL Absolute Neuts (auto) 5.0 (2.0-8.3) x10*3/uL Absolute Nucleated RBC 0.000 (0.0-0.012) X10*3/uL Nucleated RBC % (auto) 0.0 (0.0-0.2) /100WBC PT 10.5 (10.0-13.1) SEC INR 0.9 (0.9-1.1) Sodium (135-145) mmol/L Potassium (3.3-5.1) mmol/L Chloride (96-108) mmol/L Carbon Dioxide (22-29) mmol/L Anion Gap (12-20) BUN (9-16) mg/dL Creatinine (0.5-1.4) mg/dL Estim Creat Clear Calc Estimated GFR Random Glucose (60-115) mg/dL Calcium (8.4-10.2) mg/dL Total Bilirubin (0.0-1.0) mg/dL Direct Bilirubin (0.0-0.5) mg/dL AST (5-31) U/L ALT (0-31) U/L Alkaline Phosphatase (39-117) U/L Total Protein (6.5-8.0) g/dL Albumin (3.5-5.0) g/dL Urine Color Urine Appearance Urine pH (5.0-9.0) Ur Specific [place] (1.005-1.025) Urine Protein (Neg-Trace) mg/dL Urine Glucose (UA) (Negative) mg/dL Urine Ketones (Negative) mg/dL Urine Blood (Negative) Urine Nitrite (Negative) Ur Leukocyte Esterase (Negative) Urine RBC (0-2) /HPF Urine WBC (0-5) /HPF Ur Squamous Epith Cells (0-2) /HPF Urine Bacteria (None Seen) Hyaline Casts (0-2) /LPF Stool Occult Blood (NEGATIVE) Blood Type O Positive Antibody Screen NEGATIVE Crossmatch See Detail 01/06/23 01/06/23 01/06/23 Range/Units 12:44 13:25 14:36 WBC (4.8-10.8) X10*3/uL RBC (4.20-5.50) X10*6/uL Hgb (12.0-16.0) g/dl Hct (37.0-47.0) % MCV (80.0-98.0) fL MCH (27.0-33.0) pg MCHC (31.0-35.0) g/dl RDW (11.0-16.0) % Plt Count (160-400) X10*3/uL MPV (9.4-12.3) fL Immature Gran % (Auto) (0.0-0.4) % Neut % (Auto) (45-73) % Lymph % (Auto) (20-40) % Grand % (Auto) (2-11) % Eos % (Auto) (0-4) % Baso % (Auto) (0-2) % Lymph # (Auto) (1.2-4.9) X10*3/uL Grand # (Auto) (0.1-1.2) X10*3/uL Eos # (Auto) (0.0-0.4) X10*3/uL Baso # (Auto) (0.0-0.2) X10*3/uL Abs Immat Gran (auto) (0.00-0.03) X10*3/uL Absolute Neuts (auto) (2.0-8.3) x10*3/uL Absolute Nucleated RBC (0.0-0.012) X10*3/uL Nucleated RBC % (auto) (0.0-0.2) /100WBC PT (10.0-13.1) SEC INR (0.9-1.1) Sodium 141 (135-145) mmol/L Potassium 4.5 (3.3-5.1) mmol/L Chloride 107 (96-108) mmol/L Carbon Dioxide 30 H (22-29) mmol/L Anion Gap 9 L (12-20) BUN 17 H (9-16) mg/dL Creatinine 0.88 (0.5-1.4) mg/dL Estim Creat Clear Calc 56.4 Estimated GFR > 60 Random Glucose 91 (60-115) mg/dL Calcium 9.4 (8.4-10.2) mg/dL Total Bilirubin 0.3 (0.0-1.0) mg/dL Direct Bilirubin 0.1 (0.0-0.5) mg/dL AST 12 (5-31) U/L ALT 7 (0-31) U/L Alkaline Phosphatase 76 (39-117) U/L Total Protein 6.3 L (6.5-8.0) g/dL Albumin 3.8 (3.5-5.0) g/dL Urine Color Yellow Urine Appearance Clear Urine pH 7.0 (5.0-9.0) Ur Specific [place] <= 1.005 (1.005-1.025) Urine Protein Negative (Neg-Trace) mg/dL Urine Glucose (UA) Negative (Negative) mg/dL Urine Ketones Negative (Negative) mg/dL Urine Blood Negative (Negative) Urine Nitrite Negative (Negative) Ur Leukocyte Esterase Trace H (Negative) Urine RBC 0-2 (0-2) /HPF Urine WBC 0-5 (0-5) /HPF Ur Squamous Epith Cells 0-2 (0-2) /HPF Urine Bacteria None Seen (None Seen) Hyaline Casts 0-2 (0-2) /LPF Stool Occult Blood NEGATIVE (NEGATIVE) Blood Type Antibody Screen Crossmatch <Mindy Moraes MD - Last Filed: 01/06/23 16:41> Independent Interpretation I performed an independent interpretation of an: EKG <Mindy Moraes MD - Last Filed: 01/06/23 16:41> Interpretation: Sinus rhythm, HR-72, no STEMI, FL/QRS/QTC is within normal limits. <Mindy Moraes MD - Last Filed: 01/06/23 16:41> External Record Review External record reviewed: Outpatient record and Prior outpatient labs <Mindy Moraes MD - Last Filed: 01/06/23 16:41> Chronic Conditions Patient?s care impacted by: Hypertension <Mindy Moraes MD - Last Filed: 01/06/23 16:41> Discharge Plan Discharge Clinical Impression: ABLA (acute blood loss anemia), Hemorrhoids <Rhoda Smith NP - Last Filed: 01/06/23 12:06> Patient Disposition: Admitted As Inpatient <Rhoda Smtih NP - Last Filed: 01/06/23 12:06> Prescriptions: No Action losartan 50 mg tablet 1 tab PO DAILY atorvastatin 20 mg tablet 1 tab PO DAILY omeprazole 40 mg capsule,delayed release(DR/EC) 1 cap PO BID gabapentin 300 mg capsule 300 mg PO Q4-5H metoprolol succinate 25 mg tablet extended release 24 hr 1 tab PO DAILY lactulose 20 gram/30 mL Solution 20 g PO DAILY zolpidem 10 mg tablet 1 tab PO BEDTIME PRN (Reason: Insomnia) Qty: 5 0RF tramadol 50 mg tablet 1 tab PO Q4-5H lidocaine 5 % cream 1 appl topical TID PRN (Reason: pain) Qty: 15 0RF <Rhoda Smith NP - Last Filed: 01/06/23 12:06>
--- NOTE | 2023-01-06 12:03 | ECG_ITS ---
Test Reason : weakness Blood Pressure : / mmHG Vent. Rate : 072 BPM Atrial Rate : 072 BPM P-R Int : 144 ms QRS Dur : 080 ms QT Int : 412 ms P-R-T Axes : 064 012 013 degrees QTc Int : 451 ms Sinus rhythm with Premature supraventricular complexes and with occasional Premature ventricular complexes ST & T wave abnormality, consider lateral ischemia Abnormal ECG When compared with ECG of 14-FEB-2021 05:01, Premature supraventricular complexes are now Present ST now depressed in Lateral leads Referred By: Rhoda Smith Electronically Signed By:Maxim Fitzgerald
[2023-01-06 13:07] LABS: Neutrophils Percent Auto 69.5 % (45-73)
[2023-01-06 13:09] LABS: Basophils Absolute Auto 0.1 X10*3/uL (0.0-0.2); Eosinophils Absolute Auto 0.2 X10*3/uL (0.0-0.4); Eosinophils Percent Auto 2.5 % (0-4); Hematocrit 24.8 % (37.0-47.0); Imm Gran Abs Auto 0.03 X10*3/uL (0.00-0.03); Imm Gran Pct Auto 0.4 % (0.0-0.4); Lymphocytes Absolute Auto 1.3 X10*3/uL (1.2-4.9); Lymphocytes Percent Auto 18.4 % (20-40); Mean Corpuscular HGB Conc 27.8 g/dl (31.0-35.0); Mean Corpuscular Volume 75.4 fL (80.0-98.0); Mean Platelet Volume 10.7 fL (9.4-12.3); Monocytes Absolute Auto 0.6 X10*3/uL (0.1-1.2); Monocytes Percent Auto 8.2 % (2-11); Red Blood Count 3.29 X10*6/uL (4.20-5.50); Red Cell Distribution Width 17.6 % (11.0-16.0)
[2023-01-06 13:13] LABS: Hemoglobin 6.9 g/dl (12.0-16.0); Platelet Count 306 X10*3/uL (160-400); White Blood Count 7.2 X10*3/uL (4.8-10.8)
[2023-01-06 13:14] LABS: INTERNATIONAL NORM RATIO 0.9 (0.9-1.1); Prothrombin Time 10.5 SEC (10.0-13.1)
[2023-01-06 13:17] LABS: Alanine Aminotransferase 7 U/L (0-31); Albumin Level 3.8 g/dL (3.5-5.0); Alkaline Phosphatase 76 U/L (39-117); Anion Gap 9 (12-20); Aspartate Amino Transferase 12 U/L (5-31); Bilirubin Direct 0.1 mg/dL (0.0-0.5); Bilirubin Total 0.3 mg/dL (0.0-1.0); Blood Urea Nitrogen 17 mg/dL (9-16); Calcium 9.4 mg/dL (8.4-10.2); Carbon Dioxide 30 mmol/L (22-29); Chloride 107 mmol/L (96-108); Creatinine Clr Calc Pharmacy 56.4; Estimated Glomerular Filt Rate > 60; Glucose Random 91 mg/dL (60-115); Potassium 4.5 mmol/L (3.3-5.1); Sodium 141 mmol/L (135-145); Total Protein 6.3 g/dL (6.5-8.0)
[2023-01-06 13:49] LABS: OBS Int Ctl Valid YES; OBS1 NEGATIVE (NEGATIVE)
[2023-01-06] MEDS: 0.9 % Sodium Chloride 1,000 ML 999 ML IV (14:44)
[2023-01-06 14:47] LABS: Appearance Urine Clear; Color Urine Yellow; Glucose Urine UA Negative (Negative); Leukocyte Esterase Urine Trace (Negative); Nitrite Urine Negative (Negative); Specific Gravity - Urine <= 1.005 (1.005-1.025); UMIC TRIGGER UACC YES; Urine Blood Negative (Negative); Urine Ketones Negative (Negative); Urine Protein Negative (Neg-Trace)
[2023-01-06 14:49] LABS: Bacteria Urine None Seen (None Seen); Hyaline Casts Urine 0-2 /LPF (0-2); RBC Urine 0-2 /HPF (0-2); Squamous Epithelial Cell Urine 0-2 /HPF (0-2); WBC Urine 0-5 /HPF (0-5)
--- NOTE | 2023-01-06 15:16 | PC.NURSE ---
blood transfusion running. CT came to take pt to CT but blood is running through 20g IV. will wait for transfusion to finish and then send for CT
--- NOTE | 2023-01-06 16:48 | P.HPHOSP_ITS ---
History of Present Illness Date of Service: 01/06/23 Chief Complaint: weakness 77F PMH HTN. HLD, cecal cancer in remission s/p chemo, peripheral neuropathy, hemorrhoids, presented with weakness. patient has chronic pain and it was worsening several weeks ago, so she has been taking several aspirin a day. she started to note severe heartburn not relieved by omeprazole. she has also started to feel more fatigued and weak. in ED noted to have microcytic anemia of 6.9, acute on chronic (8.6 in may 2022). guiac negative. denies gross bleeding. Review of Systems Review of Systems: Yes all other systems are reviewed and are negative [facility] Medical History Cecum cancer Cervical pain (neck) Fall Hemorrhoids with complication High cholesterol Hypertension Lumbar back pain with radiculopathy affecting lower extremity Neuropathy Family History Sister Mesothelioma Surgical History History of cervical spinal surgery History of lumbar surgery Social History Household Members: Spouse Housing: House Do you presently have visiting nurse or other home services: No Alcohol intake: never Patient Tobacco Use Status: Never used Tobacco Smoked in Last 30 Days: No Use of substances other than those prescribed or required for medical reasons: No Advance Directives: Yes Advance Directives on File: Yes Advance Directives Date on File: 03/03/22 service: No Current occupational status: retired Meds Allergies Allergy/AdvReac Type Severity Reaction Status Date / Time No Known Allergies Allergy Verified 01/06/23 12:08 Active Medications: Current Medications Pharmacy Consult (Consult Rx Perform Med Rec) 1 each MISCELLANE ONCE PRN PRN Reason: Consult order Polyethylene Glycol/Electrolytes (Peg 3350/Na Sulf,Bicarb,Cl/Kcl 4,000 Ml Soln.Recon) 240 ml PO Q10M ISAIAH Stop: 01/06/23 19:26 Home Medications Medication Instructions Recorded Confirmed Last Taken Type atorvastatin 20 mg tablet 1 tab PO DAILY 02/14/21 03/02/22 Unknown History gabapentin 300 mg capsule 300 mg PO Q4-5H 02/14/21 03/02/22 Unknown History lactulose 20 gram/30 mL oral 20 g PO DAILY 02/14/21 03/02/22 Unknown History solution losartan 50 mg tablet 1 tab PO DAILY 02/14/21 03/02/22 Unknown History metoprolol succinate 25 mg 1 tab PO DAILY 02/14/21 03/02/22 Unknown History tablet,extended release 24 hr omeprazole 40 mg capsule,delayed 1 cap PO BID 02/14/21 03/02/22 Unknown History release tramadol 50 mg tablet 1 tab PO Q4-5H 03/01/22 03/02/22 Unknown History Physical Exam Vital Signs and Narrative: Vital Signs: Last Vital Signs Temp 96.1 F L 01/06/23 15:10 Pulse 71 01/06/23 16:07 Resp 12 01/06/23 16:07 BP 166/77 H 01/06/23 16:07 Pulse Ox 99 01/06/23 16:07 O2 Del Method Room Air 01/06/23 16:07 BMI result Body Mass Index 27.8 General: AO X 3, no acute distress, pale, frail appearing Resp: CTA bilateral, no accessory muscles used CVS: S1,S2,RRR GI: soft, non tender, non distended Neuro: motor grossly intact, alert Psych: appropriate affect, appropriate insight Results Labs 01/06/23 12:44 01/06/23 12:44 Labs: Laboratory Results - last 24 hr 01/06/23 01/06/23 01/06/23 11:12 12:43 12:44 MCV 75.4 L MCH 21.0 L MCHC 27.8 L RDW 17.6 H Plt Count 306 D MPV 10.7 Immature Gran % (Auto) 0.4 Neut % (Auto) 69.5 Lymph % (Auto) 18.4 L [place] % (Auto) 8.2 Eos % (Auto) 2.5 Baso % (Auto) 1.0 Lymph # (Auto) 1.3 [place] # (Auto) 0.6 Eos # (Auto) 0.2 Baso # (Auto) 0.1 Abs Immat Gran (auto) 0.03 Absolute Neuts (auto) 5.0 Absolute Nucleated RBC 0.000 Nucleated RBC % (auto) 0.0 PT 10.5 INR 0.9 Anion Gap Estim Creat Clear Calc Estimated GFR Random Glucose Calcium Total Bilirubin Direct Bilirubin AST ALT Alkaline Phosphatase Total Protein Albumin Urine Color Urine Appearance Urine pH Ur Specific [place] Urine Protein Urine Glucose (UA) Urine Ketones Urine Blood Urine Nitrite Ur Leukocyte Esterase Urine RBC Urine WBC Ur Squamous Epith Cells Urine Bacteria Hyaline Casts Stool Occult Blood Blood Type O Positive Antibody Screen NEGATIVE Crossmatch See Detail 01/06/23 01/06/23 01/06/23 12:44 13:25 14:36 MCV MCH MCHC RDW Plt Count MPV Immature Gran % (Auto) Neut % (Auto) Lymph % (Auto) [place] % (Auto) Eos % (Auto) Baso % (Auto) Lymph # (Auto) [place] # (Auto) Eos # (Auto) Baso # (Auto) Abs Immat Gran (auto) Absolute Neuts (auto) Absolute Nucleated RBC Nucleated RBC % (auto) PT INR Anion Gap 9 L Estim Creat Clear Calc 56.4 Estimated GFR > 60 Random Glucose 91 Calcium 9.4 Total Bilirubin 0.3 Direct Bilirubin 0.1 AST 12 ALT 7 Alkaline Phosphatase 76 Total Protein 6.3 L Albumin 3.8 Urine Color Yellow Urine Appearance Clear Urine pH 7.0 Ur Specific [place] <= 1.005 Urine Protein Negative Urine Glucose (UA) Negative Urine Ketones Negative Urine Blood Negative Urine Nitrite Negative Ur Leukocyte Esterase Trace H Urine RBC 0-2 Urine WBC 0-5 Ur Squamous Epith Cells 0-2 Urine Bacteria None Seen Hyaline Casts 0-2 Stool Occult Blood NEGATIVE Blood Type Antibody Screen Crossmatch Assessment and Plan (1) Hypertension: Status: Acute Plan 77F PMH HTN. HLD, cecal cancer in remission s/p chemo, peripheral neuropathy, hemorrhoids, presented with weakness Acute on chronic microcytic anemia Suspect blood loss of unclear duration Check iron studies Transfusing 1 unit PRBC Monitor hemoglobin Concern for upper GI bleed given aspirin use, IV PPI Lower GI also possibility given history of hemorrhoids and cecal cancer Plan for EGD and colonoscopy tomorrow GI to see hld statin htn losartan, metoprolol peripheral neuropathy due to history of chemo gabapentin dvt prophylaxis - mechanical due to gi bleed full code patient with significant anemia and blood loss, concern for upper gi bleed, needs transfusion and iv ppi and close montiorng for acute bleeding, therefore, expected to require atleast 2 midnights inpatient. Time Spent With Patient Time: Total time managing care of this patient today ____ minutes. Quality Stroke Does the patient have a stroke diagnosis?: No VTE Prior VTE?: No VTE Risk Level:: Medical - moderate - high VTE Device Contraindication: N/A - Device Ordered VTE Drug Contraindication: Treatment Not Indicated
--- NOTE | 2023-01-06 17:11 | PHA.MEDREC ---
Pharmacy Consult ? Medication Reconciliation Pharmacy has completed the medication reconciliation.
[2023-01-06] MEDS: iohexoL 350 MG/ML 100 ML INFUS..BTL IV (17:18)
[2023-01-06 17:31] LABS: Iron 23 mcg/dL (30-160); Percent Iron Saturation 7 % (15-50); Total Iron Binding Capacity 346 mcg/dL (228-428); Unsaturated Iron Binding 323 ug/dL
[2023-01-06 17:45] LABS: Ferritin 12 ng/mL (10-250)
[2023-01-06] MEDS: Gabapentin 400 MG CAPSULE PO ×2 (17:53→22:19)
[2023-01-06] MEDS: traMADoL HCL 50 MG TABLET PO ×2 (17:53→22:18)
[2023-01-06] MEDS: Pantoprazole Sodium 40 MG/10 ML VIAL IVPUSH (17:53)
--- NOTE | 2023-01-06 18:03 | PC.NURSE ---
pt was offered tramadol 50mg by GUERA gilmore. pt wanted only 25mg. 25mg administered, 25mg wasted by deirdre with me as witness.
--- NOTE | 2023-01-06 18:32 | PC.NURSE ---
PT REFUSING GAVILYTE AT THIS TIME, ALSO REFUSING TO UNDERGO COLONOSCOPY TOMORROW. DISCUSSED PURPOSE OF PROCEDURE WITH HER AT LENGTH, SHE IS ADAMANT ABOUT HER REFUSAL. HOSPITALIST UPDATED. MEDICATED FOR DIFFUSE NEUROPATHY PER OCT.
--- NOTE | 2023-01-06 18:50 | PC.NURSE ---
report to GUERA granado on [facility]
[2023-01-06] MEDS: Zolpidem Tartrate 5 MG TABLET 10 MG PO (22:19)
[2023-01-06] MEDS: 0.9 % Sodium Chloride Flush 3 ML SYRINGE IVFLUSH (22:23)
[2023-01-07] VITALS (8 sets, daily range): BP systolic 105–150; BP diastolic 55–72; PULSE 65–82; RESP 16–20; TEMP 36.2–36.9; O2SAT 88–97
[2023-01-07] MEDS: Gabapentin 400 MG CAPSULE PO ×6 (03:35→22:28)
[2023-01-07] MEDS: traMADoL HCL 50 MG TABLET 25 MG PO ×6 (03:35→22:28)
--- NOTE | 2023-01-07 05:57 | P.CNGI_ITS ---
History of Present Illness Data of Consult Service Date: 01/07/23 Requesting physician: Edwardo Aguila Primary Care Provider: Greg Mari MD HPI Reason for consult: anemia 77F PMH HTN. HLD, cecal cancer in remission s/p chemo, peripheral neuropathy, hemorrhoids, being seen for assessment for anemia She initially presented with fatigue and weakness with worsening chronic body aches and pains. She also noted worsening reflux in last several weeks, and taking more PPI and tums. she is aware she has a hiatal hernia and has noted more regurgitation of food. denies dysphagia and no abdominal pain She was found to be be anemic, denies melena, rectal bleeding, epistaxis, bruising or hematuria, vaginal bleeding. not taking nsaids including aspirin on a regular basis. Last colonoscopy and EGD 2016 for ALESHIA with large hemorrhoids and hiatal hernia noted. LABS: microcytic anemia of 6.9, acute on chronic (8.6 in may 2022). guiac negative Imaging: large hiatal hernia, severe spinal degeneration Review of Systems Review of Systems: Constitutional : No Weight loss, No Fever, No Chills ENT/Mouth : No sore throat, No Rhinorrhea Eyes: No Swelling, No Redness Cardiovascular : No Chest Pain, No SOB, No Edema Respiratory : No Cough, No Sputum, No Wheezing Gastrointestinal : see HPI Genitourinary : NO Dysuria, No Urinary Frequency, No Hematuria, No Urgency Musculoskeletal : No joint pain, No Myalgias, No Joint Swelling Skin : No Skin Lesions, No rash Neuro : + Weakness, No Numbness, No Dizziness, + Headache Psych : No Anxiety/Panic, No Depression Heme/Lymph: No Bruising, No Lymphadenopathy Endocrine : No Polyuria, No Polydipsia All other systems reviewed and are negative. [facility] Past Medical History Medical History Cecum cancer Cervical pain (neck) Fall Hemorrhoids with complication High cholesterol Hypertension Lumbar back pain with radiculopathy affecting lower extremity Neuropathy Family History Family History Sister Mesothelioma Surgical History Surgical History History of cervical spinal surgery History of lumbar surgery Social History Social History Household Members: Spouse Housing: House Do you presently have visiting nurse or other home services: No Alcohol intake: never Patient Tobacco Use Status: Never used Tobacco Smoked in Last 30 Days: No Use of substances other than those prescribed or required for medical reasons: No Currently Displaying Signs/Symptoms of Drug Intoxication Withdrawal: No Have you been hit, kicked, punched, or otherwise hurt by someone within the past year? If so, by whom?: No Do you feel safe in your current relationship?: Yes Is there a partner from a previous relationship who is making you feel unsafe now?: No Are you made to feel afraid or neglected: No Are you DNR?: No Advance Directives: Yes Advance Directives on File: Yes Advance Directives Date on File: 03/03/22 Do you have thoughts of harming others: None Do you have a plan to hurt others: No Plan Recently lost weight without trying: No How much weight loss: Not applicable Eating poorly because of decreased appetite: No Nutrition screen score: 0 Patient : No : No Poor oral hygiene: No service: No Current occupational status: retired [employer] Allergies Allergy/AdvReac Type Severity Reaction Status Date / Time No Known Allergies Allergy Verified 01/06/23 12:08 Active Medications: Current Medications Atorvastatin Calcium (Atorvastatin Calcium 20 Mg Tablet) 20 mg PO DAILY [facility] Gabapentin (Gabapentin 400 Mg Capsule) 400 mg PO Q4H [facility] Last Admin: 01/07/23 03:35 Dose: 400 mg Losartan Potassium (Losartan Potassium 50 Mg Tablet) 50 mg PO DAILY [facility]; Protocol Metoprolol Succinate (Metoprolol Succinate Er 25 Mg Tab.Er.24h) 25 mg PO DAILY [facility]; Protocol Pantoprazole Sodium (Pantoprazole Sodium 40 Mg/10 Ml Vial) 40 mg IVPUSH BID@0630,1630 [facility] Last Admin: 01/06/23 17:53 Dose: 40 mg Pharmacy Consult (Consult Rx Perform Med Rec) 1 each MISCELLANE ONCE PRN PRN Reason: Consult order Sodium Chloride (0.9 % Sodium Chloride Flush 3 Ml Syringe) 3 ml IVFLUSH QSHIFT [facility] Last Admin: 01/06/23 22:23 Dose: 3 ml Tramadol HCl (Tramadol Hcl 50 Mg Tablet) 25 mg PO Q4H [facility] Last Admin: 01/07/23 03:35 Dose: 25 mg Zolpidem Tartrate (Zolpidem Tartrate 5 Mg Tablet) 10 mg PO BEDTIME PRN PRN Reason: Insomnia Last Admin: 01/06/23 22:19 Dose: 10 mg Home Medications Medication Instructions Recorded Confirmed Last Taken Type atorvastatin 20 mg tablet 1 tab PO DAILY 02/14/21 01/06/23 Unknown History losartan 50 mg tablet 1 tab PO DAILY 02/14/21 01/06/23 Unknown History metoprolol succinate 25 mg 1 tab PO DAILY 02/14/21 01/06/23 Unknown History tablet,extended release 24 hr omeprazole 40 mg capsule,delayed 1 cap PO BID 02/14/21 01/06/23 Unknown History release gabapentin 400 mg capsule 400 mg PO Q4H 01/06/23 01/06/23 Unknown History tramadol 50 mg tablet 50 mg PO Q4H 01/06/23 01/06/23 Unknown History zolpidem 10 mg tablet 10 mg PO BEDTIME PRN Insomnia 01/06/23 01/06/23 Unknown History Physical Exam Vital Signs: Vital Signs: Last Vital Signs Temp 98.4 F 01/07/23 03:17 Pulse 82 01/07/23 03:17 Resp 20 01/07/23 03:17 BP 143/67 H 01/07/23 03:17 Pulse Ox 92 01/07/23 03:17 O2 Del Method Room Air 01/07/23 03:17 BMI result Body Mass Index 31.1 EXAM: GENERAL: The patient is pale, relaxed VITAL SIGNS:see workflow HEENT: Nonicteric sclerae, PERRLA, EOMI. Oropharynx clear. Moist mucous membranes. Conjunctivae appear well perfused. No thyroid mass. CHEST: Chest wall is nontender. HEART: Regular rate and rhythm without murmurs. LUNGS: Clear to auscultation bilaterally. ABDOMEN: Soft, positive bowel sounds, nontender, no organomegaly.no flank tenderness SKIN: red scaly rash around cheeks (worse in the sunlight), no excessive bruising, petechiae, or purpura. NEUROLOGIC: Cranial nerves II-XII intact without motor/sensory deficit. psych-nml mood Results Labs 01/06/23 12:44 01/06/23 12:44 Labs: Short CBC 01/06/23 Range/Units 12:44 WBC 7.2 (4.8-10.8) X10*3/uL Hgb 6.9 L* (12.0-16.0) g/dl Hct 24.8 L (37.0-47.0) % Plt Count 306 D (160-400) X10*3/uL BMP 01/06/23 12:44 Sodium 141 Potassium 4.5 Chloride 107 Carbon Dioxide 30 H BUN 17 H Creatinine 0.88 Calcium 9.4 Liver Function 01/06/23 Range/Units 12:44 Total Bilirubin 0.3 (0.0-1.0) mg/dL Direct Bilirubin 0.1 (0.0-0.5) mg/dL AST 12 (5-31) U/L ALT 7 (0-31) U/L Alkaline Phosphatase 76 (39-117) U/L Albumin 3.8 (3.5-5.0) g/dL Urine 01/06/23 Range/Units 14:36 Urine Color Yellow Urine Appearance Clear Urine pH 7.0 (5.0-9.0) Ur Specific [place] <= 1.005 (1.005-1.025) Urine Protein Negative (Neg-Trace) mg/dL Urine Glucose (UA) Negative (Negative) mg/dL Imaging CT scan - abdomen: My impression: hiatal hernia, spinal degeneration Assessment and Plan (1) Iron deficiency anemia: Qualifiers: Iron deficiency anemia type: chronic blood loss Qualified Code(s): D50.0 - Iron deficiency anemia secondary to blood loss (chronic) Status: Acute Plan 1/ Iron def anemia, symptomatic--maybe due to malabsorption or chronic blood loss from hector erosions, DDX: neoplasia, PUD, colitis PLAN: 1/ EGD, (colonoscopy refused by patient, she doesnt want to drink prep, she might consider as o/p with sutab or lo vol prep) 2/ high dose PPI, carafate and GERD precautions Time Spent With Patient Time: Total time managing care of this patient today ____ minutes. Procedures Date of Service Date of Service: 01/07/23
[2023-01-07] MEDS: Pantoprazole Sodium 40 MG/10 ML VIAL IVPUSH ×2 (06:30→17:06)
[2023-01-07 06:38] LABS: Hematocrit 26.7 % (37.0-47.0); Hemoglobin 7.7 g/dl (12.0-16.0); Mean Corpuscular HGB Conc 28.8 g/dl (31.0-35.0); Mean Corpuscular Hemoglobin 22.6 pg (27.0-33.0); Mean Corpuscular Volume 78.5 fL (80.0-98.0); Mean Platelet Volume 9.3 fL (9.4-12.3); Platelet Count 250 X10*3/uL (160-400); Red Cell Distribution Width 17.8 % (11.0-16.0); White Blood Count 6.6 X10*3/uL (4.8-10.8)
[2023-01-07 06:52] LABS: Anion Gap 10 (12-20); Blood Urea Nitrogen 14 mg/dL (9-16); Calcium 8.9 mg/dL (8.4-10.2); Carbon Dioxide 28 mmol/L (22-29); Chloride 109 mmol/L (96-108); Creatinine Clr Calc Pharmacy 64.8; Estimated Glomerular Filt Rate > 60; Glucose Fasting 92 mg/dL (60-99); Potassium 4.7 mmol/L (3.3-5.1); Sodium 142 mmol/L (135-145)
[2023-01-07] MEDS: Atorvastatin Calcium 20 MG TABLET PO (08:41)
[2023-01-07] MEDS: Losartan Potassium 50 MG TABLET PO (08:41)
[2023-01-07] MEDS: Metoprolol Succinate ER 25 MG TAB.ER.24H PO (08:41)
[2023-01-07] MEDS: Iron Sucrose Complex 200 MG in 0.9 % Sodium Chloride 100 ML 440 MG IV (09:05)
--- NOTE | 2023-01-07 10:43 | MHC.CM.PN ---
CM MET WITH PT AT BEDSIDE. PT LIVES WITH SPOUSE IN A [facility]. USES A ROLLATOR FOR MOBILITY. HAS HOMEMAKING SERVICES EVERY 3 WEEKS. PT IS OPEN TO HOME PT IF RECOMMENDED BUT DECLINES A SNF AT THIS TIME. +COVID VAX X4 + HCP ON FILE PCP DR. TELLO DP: HOME WITH [facility] SERVICES IF RECOMMENDED, REQUESTS [facility]. REFERRAL SENT. SPOUSE WILL TRANSPORT HOME. CM WILL CONTINUE TO FOLLOW FOR DC PLAN.
--- NOTE | 2023-01-07 12:38 | MHC.SHP ---
Pre-Procedural Eval Section A Date of Service: 01/07/23 The patient is an INPATIENT: Yes The History & Physical has been completed within 30 days and I have reviewed it.: Yes Section B Chief Complaint: GI Bleed Allergies: Allergies Allergy/AdvReac Type Severity Reaction Status Date / Time No Known Allergies Allergy Verified 01/06/23 12:08 Plan I have reviewed the history and physical and performed a pertinent physical examination on my patient. No changes have occurred unless specified. Time Spent With Patient Time: Total time managing care of this patient today ____ minutes.
--- NOTE | 2023-01-07 12:38 | W.PM.OPN ---
Operative Note Operative Note Date of Service: 01/07/23 Narrative: Procedure Description: EGD Indication: anemia Anesthesia: MAC FLEXIBLE TRANSORAL UPPER GASTROINTESTINAL ENDOSCOPY UPPER ENDOSCOPY Consent: Indications for the procedure and potential complications of bleeding, perforation, reaction to medications and missed diagnosis were discussed with the patient and informed consent was obtained. Instrument: Olympus GIF H 190 J mid size upper endoscope Monitoring: Vital signs and clinical assessment, continuous EKG monitoring, Pulse oximetry, Carbon Dioxide monitoring and blood pressure monitoring were done throughout the procedure. Procedure: The patient was placed in the left lateral decubitis position and pre-procedure medications were administered and a bite block was placed. The endoscope was inserted into the mouth and advanced under direct vision to the third part of duodenum. A careful inspection was made as the upper endoscope was withdrawn including a retroflexed examination of the proximal stomach; Findings and interventions are described below. Findings: Larynx:normal Esophagus: GE junction at 35 cm, diaphragm hiatus at 42 cm, consistent with 7 cm fixed hiatal hernia. There were linear streaky erosions at the distal esophagus with some slough like material, bx taken, consistent with LA grade C erosive esophagitis. Stomach: Patchy gastric erythema. Biopsies were obtained. Hiatal hernia seen on retroflexed examination of the cardia. Few fundic gland polyps noted Duodenum: Normal bulb and descending duodenum, bx taken Intervention: Biopsies as noted above Impression/Findings: large hiatal hernia erosive esophagitis fundic gland polyps PLAN: GERD precautions high dose BId PPI can add carafate 1 g BID consider surgical referral and repair if health allows, would refer to Dr Wood
--- NOTE | 2023-01-07 13:40 | HO.PM.IMPN ---
Subjective Subjective Date of Service: 01/07/23 Interval History: Seen and evaluated this morning Feels ok, no complaints waiting for the EGD no other overnight events Review of Systems Review of Systems: Yes all other systems are reviewed and are negative Physical Exam Vital Signs: Vital Signs: Last Vital Signs Temp 97.1 F 01/07/23 12:58 Pulse 65 01/07/23 12:58 Resp 16 01/07/23 12:58 BP 144/65 H 01/07/23 12:58 Pulse Ox 93 01/07/23 12:58 O2 Del Method Room Air 01/07/23 12:58 BMI result Body Mass Index 31.1 Const: Other: Constitutional : Awake, interactive, not in distress Neck : Normal inspection, Supple Cardiovascular : RRR, no JVP, no lower extremity edema Respiratory : good bilateral air entry, no crackles, wheezes or rhonchi Gastrointestinal: soft, lax, Normal bowel sounds, Non tender Skin : Warm, Dry Neurological : Alert & oriented x3, No focal deficit Objective Data Active Medications Atorvastatin Calcium (Atorvastatin Calcium 20 Mg Tablet) 20 mg PO DAILY [facility] Last Admin: 01/07/23 08:41 Dose: 20 mg Documented By: PITO Gabapentin (Gabapentin 400 Mg Capsule) 400 mg PO Q4H [facility] Last Admin: 01/07/23 09:31 Dose: 400 mg Documented By: PITO Iron Sucrose 200 mg/ Sodium (Chloride) 110 mls @ 440 mls/hr IV DAILY [facility] Stop: 01/09/23 09:14 Last Infusion: 01/07/23 10:03 Dose: 0 mls/hr Documented By: PITO Lactated Ringer's (Lr) 1,000 mls @ 80 mls/hr IVCONT .[id number] [facility] Losartan Potassium (Losartan Potassium 50 Mg Tablet) 50 mg PO DAILY [facility]; Protocol Last Admin: 01/07/23 08:41 Dose: 50 mg Documented By: PITO Metoprolol Succinate (Metoprolol Succinate Er 25 Mg Tab.Er.24h) 25 mg PO DAILY [facility]; Protocol Last Admin: 01/07/23 08:41 Dose: 25 mg Documented By: PITO Pantoprazole Sodium (Pantoprazole Sodium 40 Mg/10 Ml Vial) 40 mg IVPUSH BID@0630,1630 [facility] Last Admin: 01/07/23 06:30 Dose: 40 mg Documented By: FRANCK Pharmacy Consult (Consult Rx Perform Med Rec) 1 each MISCELLANE ONCE PRN PRN Reason: Consult order Sodium Chloride (0.9 % Sodium Chloride Flush 3 Ml Syringe) 3 ml IVFLUSH QSHIFT [facility] Last Admin: 01/07/23 08:46 Dose: Not Given Documented By: PITO Non-Admin Reason: Previously Administered Tramadol HCl (Tramadol Hcl 50 Mg Tablet) 25 mg PO Q4H [facility] Last Admin: 01/07/23 09:31 Dose: 25 mg Documented By: PITO Zolpidem Tartrate (Zolpidem Tartrate 5 Mg Tablet) 10 mg PO BEDTIME PRN PRN Reason: Insomnia Last Admin: 01/06/23 22:19 Dose: 10 mg Documented By: YEHUDA Labs 01/07/23 06:21 01/07/23 06:21 Labs: Laboratory Results - last 24 hr 01/06/23 01/06/23 01/06/23 12:43 12:44 13:25 MCV MCH MCHC RDW Plt Count MPV Absolute Nucleated RBC Nucleated RBC % (auto) Anion Gap Estim Creat Clear Calc Estimated GFR Fasting Glucose Calcium Iron 23 L TIBC 346 % Saturation 7 L Unsat Iron Binding 323 Ferritin 12 Urine Color Urine Appearance Urine pH Ur Specific [place] Urine Protein Urine Glucose (UA) Urine Ketones Urine Blood Urine Nitrite Ur Leukocyte Esterase Urine RBC Urine WBC Ur Squamous Epith Cells Urine Bacteria Hyaline Casts Stool Occult Blood NEGATIVE Blood Type O Positive Antibody Screen NEGATIVE Crossmatch See Detail 01/06/23 01/07/23 01/07/23 14:36 06:21 06:21 MCV 78.5 L MCH 22.6 L MCHC 28.8 L RDW 17.8 H Plt Count 250 MPV 9.3 L Absolute Nucleated RBC 0.000 Nucleated RBC % (auto) 0.0 Anion Gap 10 L Estim Creat Clear Calc 64.8 Estimated GFR > 60 Fasting Glucose 92 Calcium 8.9 Iron TIBC % Saturation Unsat Iron Binding Ferritin Urine Color Yellow Urine Appearance Clear Urine pH 7.0 Ur Specific [place] <= 1.005 Urine Protein Negative Urine Glucose (UA) Negative Urine Ketones Negative Urine Blood Negative Urine Nitrite Negative Ur Leukocyte Esterase Trace H Urine RBC 0-2 Urine WBC 0-5 Ur Squamous Epith Cells 0-2 Urine Bacteria None Seen Hyaline Casts 0-2 Stool Occult Blood Blood Type Antibody Screen Crossmatch Assessment and Plan (1) Iron deficiency anemia: Status: Acute (2) Hemorrhoids: Status: Acute (3) Symptomatic anemia: Status: Acute Plan 77F PMH HTN. HLD, cecal cancer in remission s/p chemo, peripheral neuropathy, hemorrhoids, presented with weakness Acute on chronic microcytic symptomatic anemia Suspect blood loss of unclear duration low iron stores Transfused 1 unit PRBC start IV Iron for 3 days Monitor hemoglobin IV PPI Plan for EGD patient refused colonoscopy hld statin htn losartan, metoprolol peripheral neuropathy due to history of chemo gabapentin dvt prophylaxis mechanical due to gi bleed patient with significant anemia and blood loss, concern for upper gi bleed, needs transfusion and iv ppi and close monitoring for acute bleeding, Time Spent With Patient Time: Total time managing care of this patient today ____ minutes. Quality Stroke Does the patient have a stroke diagnosis?: No VTE Prior VTE?: No VTE Risk Level:: Medical - moderate - high VTE Device Contraindication: N/A - Device Ordered VTE Drug Contraindication: Treatment Not Indicated
[2023-01-07] MEDS: Sucralfate 1 GM TABLET PO (17:05)
[2023-01-07] MEDS: 0.9 % Sodium Chloride Flush 3 ML SYRINGE IVFLUSH ×2 (17:06→22:33)
[2023-01-07] MEDS: Zolpidem Tartrate 5 MG TABLET 10 MG PO (22:31)
[2023-01-07 23:05] LABS: Anion Gap 12 (12-20); Blood Urea Nitrogen 13 mg/dL (9-16); Calcium 9.2 mg/dL (8.4-10.2); Carbon Dioxide 27 mmol/L (22-29); Chloride 109 mmol/L (96-108); Creatinine Clr Calc Pharmacy 61.7; Estimated Glomerular Filt Rate > 60; Glucose Random 126 mg/dL (60-115); Potassium 4.7 mmol/L (3.3-5.1); Sodium 143 mmol/L (135-145)
[2023-01-08] VITALS: BP 102/53; PULSE 76; RESP 20; TEMP 37.1; O2SAT 91
[2023-01-08] MEDS: Gabapentin 400 MG CAPSULE PO ×3 (02:32→09:15)
[2023-01-08] MEDS: traMADoL HCL 50 MG TABLET 25 MG PO ×3 (02:32→09:16)
[2023-01-08 03:42] VITALS: BP 114/57; PULSE 70; RESP 20; TEMP 36.2; O2SAT 97
--- NOTE | 2023-01-08 04:47 | PC.NURSE ---
pt had a few beats of Vtach, let MD know who ordered a BMP and a Mag level. Will continue to monitor. Respirations steady.
[2023-01-08] MEDS: Pantoprazole Sodium 40 MG/10 ML VIAL IVPUSH (06:27)
[2023-01-08 07:02] LABS: Hematocrit 27.4 % (37.0-47.0); Hemoglobin 7.6 g/dl (12.0-16.0); Mean Corpuscular HGB Conc 27.7 g/dl (31.0-35.0); Mean Corpuscular Volume 79.2 fL (80.0-98.0); Mean Platelet Volume 9.7 fL (9.4-12.3); Platelet Count 250 X10*3/uL (160-400); Red Blood Count 3.46 X10*6/uL (4.20-5.50); Red Cell Distribution Width 18.5 % (11.0-16.0); White Blood Count 5.6 X10*3/uL (4.8-10.8)
[2023-01-08 07:47] VITALS: BP 124/59; PULSE 75; RESP 18; TEMP 36.5; O2SAT 92
[2023-01-08] MEDS: Losartan Potassium 50 MG TABLET PO (09:15)
[2023-01-08] MEDS: 0.9 % Sodium Chloride Flush 3 ML SYRINGE IVFLUSH (09:15)
[2023-01-08] MEDS: Sucralfate 1 GM TABLET PO (09:15)
[2023-01-08] MEDS: Atorvastatin Calcium 20 MG TABLET PO (09:15)
[2023-01-08] MEDS: Metoprolol Succinate ER 25 MG TAB.ER.24H PO (09:15)
[2023-01-08] MEDS: Iron Sucrose Complex 200 MG in 0.9 % Sodium Chloride 100 ML 400 MG IV (09:16)
--- NOTE | 2023-01-08 10:33 | PC.NURSE ---
Patient A&OX4. Neurologically intact. Continues with neuropathy pain to bilateral feet medicated with scheduled gabapentin and tramadol with effect. Lung sounds clear denies shortness of breath or chest pain. BS+X4 abdomen soft non-tender denies nausea/vomiting. Tolerating diet. IV iron infused per orders. Plan to discharge to home awaiting discharge orders, IV removed from right AC cath intact.
--- NOTE | 2023-01-08 10:54 | P.DS_ITS ---
DS: Providers Provider Date of Service: 01/08/23 Date of admission: 01/06/23 16:47 Primary care physician: Greg Mari MD Consults: 01/06/23 16:42 Consult to Gastroenterology Routine Consulting Provider: Judy Lancaster Reason for consultation: gi bleed Has provider been notified: Yes DS: Diagnosis Discharge Diagnosis (1) Iron deficiency anemia: Status: Acute (2) Symptomatic anemia: Status: Acute (3) Erosive esophagitis: Status: Acute (4) HH (hiatus hernia): Status: Acute DS: Summary Hospital Course Hospital Course: Admission note HPI 77F PMH HTN. HLD, cecal cancer in remission s/p chemo, peripheral neuropathy, hemorrhoids, presented with weakness. patient has chronic pain and it was worsening several weeks ago, so she has been taking several aspirin a day. she started to note severe heartburn not relieved by omeprazole. she has also started to feel more fatigued and weak. in ED noted to have microcytic anemia of 6.9, acute on chronic (8.6 in may 2022). guiac negative. denies gross bleeding. Hospital course The patient was admitted for Acute on chronic microcytic symptomatic anemia with suspect blood loss of unclear duration. low iron stores. Transfused 1 unit PRBC with good response as Hb maintaned around 7.7 from 6.9 on admission. IV Iron for 2 days. IV PPI and carafete. evaluated by GI who did an EGD showing an evidence of erosive esophagitis and large hiatus hernia. patient refused colonoscopy. Tolerated diet well and Hb remained stable overnight. Continue Omeprazole 40 mg twice daily Start Carafate 1 gm twice daily Avoids NSAIDs and aspirin To follow with thoracic surgery as outpatient for evaluation of possible interventions for treatment of hiatus hernia Continue Iron pills as prescribed Time Spent with Patient Time attestation: Total time managing care of this patient today ____ minutes. Discharge coordination time: Greater than 30 minutes Quality: Safe Use of Opioids Does Pt have an Active Cancer Diagnosis on the Problem List?: Yes Opioid Measure Date for [facility] Report: 12/09/22 Opioid Measure Time for [facility] Report: 11:10 Quality: Stroke Does the patient have a stroke diagnosis?: No Physical Exam Vital Signs: Vital Signs: Last Vital Signs Temp 97.7 F 01/08/23 07:47 Pulse 75 01/08/23 07:47 Resp 18 01/08/23 07:47 BP 124/59 L 01/08/23 07:47 Pulse Ox 92 01/08/23 07:47 O2 Del Method Room Air 01/08/23 07:47 BMI result Body Mass Index 31.1 Const: Other: Constitutional : Awake, interactive, not in distress Neck : Normal inspection, Supple Cardiovascular : RRR, no JVP, no lower extremity edema Respiratory : good bilateral air entry, no crackles, wheezes or rhonchi Gastrointestinal: soft, lax, Normal bowel sounds, Non tender Skin : Warm, Dry Neurological : Alert & oriented x3, No focal deficit DS: Data Data Completed and Pending Completed studies during hospitalization [Text1]: Procedures Reposition Left Upper Femur with Internal Fixation Device, Percutaneous Approach (02/14/21) Pending studies at discharge: Pending at discharge 01/07/23 12:31 Surgical [PTH] Routine Labs on day of discharge: Laboratory Results - last 24 hr 01/07/23 01/08/23 22:42 06:39 WBC 5.6 RBC 3.46 L Hgb 7.6 L Hct 27.4 L MCV 79.2 L MCH 22.0 L MCHC 27.7 L RDW 18.5 H Plt Count 250 MPV 9.7 Absolute Nucleated RBC 0.000 Nucleated RBC % (auto) 0.0 Sodium 143 Potassium 4.7 Chloride 109 H Carbon Dioxide 27 Anion Gap 12 BUN 13 Creatinine 0.85 Estim Creat Clear Calc 61.7 Estimated GFR > 60 Random Glucose 126 H Calcium 9.2 Magnesium 2.0 Discharge Plan Discharge Anticipated Discharge Date/Time: 01/08/23 10:41 Patient Disposition: Home, Self-Care Discharge Diagnosis: erosive esophagitis Hiatus hernia Referrals: Greg Mari MD [Primary Care Provider] - 1 Week Discharge Medications: New sucralfate 1 gram Tablet 1 g PO BIDAC Qty: 60 0RF ferrous sulfate 324 mg (65 mg iron) tablet,delayed release (DR/EC) 324 mg PO DAILY Qty: 90 0RF Continued losartan 50 mg tablet 1 tab PO DAILY atorvastatin 20 mg tablet 1 tab PO DAILY metoprolol succinate 25 mg tablet extended release 24 hr 1 tab PO DAILY gabapentin 400 mg capsule 400 mg PO Q4H tramadol 50 mg tablet 50 mg PO Q4H zolpidem 10 mg tablet 10 mg PO BEDTIME PRN (Reason: Insomnia) omeprazole 40 mg capsule,delayed release(DR/EC) 1 cap PO BID Qty: 60 0RF Discharge Orders: Discharge Order (Routine); Ordered 01/08/23 Ordered By: Sera Hernandez Diet: Advance to usual diet Activity on Discharge: As tolerated Stand Alone Forms: Patient Portal Discharge page Care Plan Goals: Read below Health Concerns: Read below Plan of Treatment: Read below Assessment: You were admitted for evaluation of epigastric pain and weakness. found to have symptomatic anemia requiring blood transfusion with no overt bleeding. evaluated by dam tender assistant who did an upper endoscopy showing findings of inflammed esophagus and hiatus hernia. Continue Omeprazole 40 mg twice daily Start Carafate 1 gm twice daily Avoids NSAIDs and aspirin To follow with thoracic surgery as outpatient for evaluation of possible interventions for treatment of hiatus hernia Continue Iron pills as prescribed
[2023-01-08 11:08] VITALS: BP 121/57; PULSE 71; RESP 20; TEMP 37.2; O2SAT 93
--- NOTE | 2023-01-08 11:49 | MHC.CM.PN ---
Addendum entered by Rhonda Simmons 01/08/23 11:54: IMM given 01/08/23. Original Note: Pt medically cleared for D/C home. Pt declined VNA services at this time, notified. Pt picked up by family friend Merry.
--- NOTE | 2023-01-08 15:28 | HO.POSTANES ---
Post Anesthesia Evaluation Post Anesthesia Evaluation Vital Signs: Vital Signs Temp Pulse Resp BP Pulse Ox O2 Del Method 01/08/23 11:08 98.9 F 71 20 121/57 L 93 Room Air 01/08/23 07:47 97.7 F 75 18 124/59 L 92 Room Air 01/08/23 03:42 97.2 F 70 20 114/57 L 97 Room Air Anesthesia: Monitored Mental Status: Awake Pain Control: Satisfactory Nausea/Vomiting: None Hydration: Adequate Anesthesia-Related Issues: No Anes. Related Issues
== END 2023-01-08 11:52 | disposition home or self-care (01) | DRG 381 ==
LOC: HO.ED 16:41 → HO.EDOVER 17:06 → HO.IMC 18:32
PROVIDERS: Internal Medicine; Internal Medicine Gastroenterology; Nurse Practitioner Family; Admitting Provider Internal Medicine; Emergency Provider Student in an Organized Health Care Education/Training Program; PCP Internal Medicine; Visit Provider Student in an Organized Health Care Education/Training Program
PROC: 0DJ08ZZ Inspection of Upper Intestinal Tract, Via Natural or Artificial Opening Endoscopic (ICD-10-PCS; CPT 43235; principal; 2023-01-07 15:20)
DX: K22.11 Ulcer of esophagus with bleeding (principal); D62 Acute posthemorrhagic anemia; K44.9 Diaphragmatic hernia without obstruction or gangrene; K64.9 Unspecified hemorrhoids; G62.0 Drug-induced polyneuropathy; K31.7 Polyp of stomach and duodenum; T39.015A Adverse effect of aspirin, initial encounter; T45.1X5S Adverse effect of antineoplastic and immunosuppressive drugs, sequela; I10 Essential (primary) hypertension; E78.00 Pure hypercholesterolemia, unspecified; Z85.038 Personal history of other malignant neoplasm of large intestine; Z79.899 Other long term (current) drug therapy
CPT/HCPCS: 36415; 74178; 80048; 80076; 81001; 82272; 82728; 83540; 83735; 85025; 85027; 85610; 86850; 86900; 86901; 86923; 88305; 88312; 88342; 93005; 99285; J1756; P9016; Q9967

== ENCOUNTER 2023-04-17 10:11 | Outpatient (AMB) | payer MEDICARE, OTHER, SELFPAY ==
--- NOTE | 2023-04-17 10:14 | A.OFFVIS_ITS ---
Intake Vital Signs 04/17/23 10:15 Height 5 ft 7 in Weight 182 lb 15.739 oz BMI 28.7 Intake Visit Reasons: Routine F/U Procedure Intake Note: Jeanne presents in the office as a routine follow up. CC: She states that Omeprazole has been making her sick and now she has been taking TUMS to make her feel better. She has a large hiatal hernia. No irregular bowel movements. Gravel Inspector Required: No Allergies No Known Allergies Allergy (Verified 04/17/23 10:18) HPI Routine F/U Procedure HPI Details 77F PMH HTN. HLD, cecal cancer in remission s/p chemo, peripheral neuropathy, hemorrhoids, being seen for f/u for anemia RECAP Initially seen as in patient 12/2022: She initially presented with fatigue and weakness with worsening chronic body ac hes and pains. She also noted worsening reflux in for several weeks, and taking more PPI and tums. she is aware she has a hiatal hernia and has noted more regurgitation of food. She was found to be be anemic, Colonoscopy and EGD 2016 for ALESHIA with large hemorrhoids and hiatal hernia noted. LABS: microcytic anemia of 6.9, acute on chronic (8.6 in may 2022). guiac negative Imaging: large hiatal hernia, severe spinal degeneration EGD 12/2022 large hiatal hernia erosive esophagitis fundic gland polyps path- erosive esophagitis INTERIM: she feels omeprazole is not working as well for her and has break thru GERD she is not interested in surgery for hernia she takes tylenol prn for joint pains and aches, not on nsaids no melena no nuasea no blood in stool had crc >10 yrs ago in remission, can;t recall last colonoscopy EXAM: GENERAL: The patient is frail, uses walker VITAL SIGNS:see workflow HEENT: Nonicteric sclerae, PERRLA, EOMI. Oropharynx clear. Moist mucous membranes. Conjunctivae appear well perfused. No thyroid mass. CHEST: Chest wall is nontender. HEART: Regular rate and rhythm without murmurs. LUNGS: Clear to auscultation bilaterally. ABDOMEN: Soft, positive bowel sounds, nontender, no organomegaly.no flank tenderness SKIN: No rash, no excessive bruising, petechiae, or purpura. NEUROLOGIC: Cranial nerves II-XII intact without motor/sensory deficit. Psych; normal A/P: 1/ hiatal hernia, large with erosive esophagitis 2/ hx of crc, no sx, she is frail, will hold off on colonoscopy at this time PLAN: 1/ change PPi to nexium, and add carafate 2/ hold on colonsocopy, if any change can reconsider 3/ check cbc PFSH Medical History Cecum cancer Cervical pain (neck) Fall Hemorrhoids Hemorrhoids with complication High cholesterol Hypertension Iron deficiency anemia Lumbar back pain with radiculopathy affecting lower extremity Neuropathy Surgical History (Updated 04/17/23 @ 10:19 by SERGEY Vila) History of cervical spinal surgery History of esophagogastroduodenoscopy (EGD) History of lumbar surgery Hx of colonoscopy Family History Sister Mesothelioma Social History Household Members: Spouse Housing: House Do you presently have visiting nurse or other home services: No Alcohol intake: never Patient Tobacco Use Status: Never used Tobacco Advance Directives Date on File: 03/03/22 service: No Current occupational status: retired Physical Exam Vital Signs: BMI result Body Mass Index 28.7 Assessment & Plan Assessment & Plan (1) Erosive esophagitis: Code(s): K22.10 - Ulcer of esophagus without bleeding (2) HH (hiatus hernia): Code(s): K44.9 - Diaphragmatic hernia without obstruction or gangrene Orders: Orders Ferritin Today K22.10 - Ulcer of esophagus without bleeding, K44.9 - Diaphragmatic hernia without obstruction or gangrene Complete Blood Count Auto Diff Today K22.10 - Ulcer of esophagus without bleeding, K44.9 - Diaphragmatic hernia without obstruction or gangrene Medications: New 2 esomeprazole magnesium 40 mg PO DAILY 90 caps 3RF sucralfate 10 mL PO BID 1,000 mL 2RF Discontinued omeprazole Discontinued Reason: Stopped on Transfer 1 cap PO BID 60 caps 0RF Coding Level of Care Code Est Pt Level 3 (31449) Diagnoses Erosive esophagitis K22.10 HH (hiatus hernia) K44.9
[2023-04-17 10:15] VITALS: BMI 28.7
== END 2023-04-17 10:37 | disposition home or self-care (01) ==
PROVIDERS: PCP Internal Medicine; Visit Provider Internal Medicine Gastroenterology
DX: K22.10 Ulcer of esophagus without bleeding (principal); K44.9 Diaphragmatic hernia without obstruction or gangrene
CPT/HCPCS: 99213

== ENCOUNTER → 2023-04-17 10:11 | Outpatient (BNVA) | payer MEDICARE, OTHER, SELFPAY | PROVIDERS: PCP Internal Medicine; Visit Provider Internal Medicine Gastroenterology | DX: K22.10 Ulcer of esophagus without bleeding (principal); K44.9 Diaphragmatic hernia without obstruction or gangrene | CPT/HCPCS: 99212 ==

== ENCOUNTER 2023-06-30 11:29 | Outpatient (AMB) | payer MEDICARE, OTHER, SELFPAY ==
--- NOTE | 2023-06-30 11:54 | A.OFFVIS_ITS ---
Intake Vital Signs 3 06/30/23 12:21 Height 5 ft 7 in Weight 183 lb 2 oz BMI 28.7 BP 140/68 H Blood Pressure Location Lt brachial Position Sitting Pulse 73 Intake Visit Reasons: lesion of the forehead Intake Note: Patient is seen in office for evaluation and treatment of a lesion of the forehead & lwdr upper arm. Patient c/o:onset for months, lession on the forehead, red, some discharge, painful, has another one in the left arm that would also like to be removed Eligibility Counselor Required: No Accompanied by: Self / Same As Patient Allergies No Known Allergies Allergy (Verified 06/30/23 12:22) Medication List - Last Reconciled 06/30/23 by Venu Walton MD atorvastatin 1 tab PO DAILY esomeprazole magnesium 40 mg PO DAILY ferrous sulfate 324 mg PO DAILY gabapentin 300 mg PO Q4H losartan 1 tab PO DAILY metoprolol succinate ER 1 tab PO DAILY sucralfate 10 mL PO BID tramadol 25 mg PO Q4H zolpidem 10 mg PO BEDTIME PRN HPI HPI Comments 2 History of Present Illness0 Details 70-year-old female patient returning wit h 2 new lesions 1 located in the left forehead and a 2nd located over the left upper arm which are causing discomfort and is concerning for a recurrent skin carcinoma. She reports occasional discharge and bleeding from the sites. She denies previous excisions at this location. [facility] Medical History Iron deficiency anemia Hemorrhoids Hemorrhoids with complication Fall Neuropathy High cholesterol Hypertension Cecum cancer Lumbar back pain with radiculopathy affecting lower extremity Cervical pain (neck) Surgical History Hx of colonoscopy History of esophagogastroduodenoscopy (EGD) History of cervical spinal surgery History of lumbar surgery Family History Sister Mesothelioma Social History Household Members: Spouse Housing: House Do you presently have visiting nurse or other home services: No Alcohol intake: never Patient Tobacco Use Status: Never used Tobacco Advance Directives Date on File: 03/03/22 service: No Current occupational status: retired Review of Systems Const All systems reviewed & are unremarkable except as noted in HPI and below Denies chills, Denies night sweats, Denies poor appetite and Denies weakness ENT Details: hearing sensitivity Card Denies chest pain, Denies irregular heart rhythm, Denies palpitations and Denies dyspnea Resp Denies cough, Denies dyspnea and Denies wheezing GI Denies abdominal pain Musc Reports back pain Skin/Breast Reports as per HPI and Reports sores Neuro Denies weakness Endo Denies palpitations Donell/Lymph Denies lymphadenopathy Aller/Immun Denies wheezing Physical Exam Vital Signs: Last Vital Signs Pulse 73 06/30/23 12:21 BP 140/68 H 06/30/23 12:21 BMI result Body Mass Index 28.7 Const General: comfortable Nutritional Appearance: well nourished Orientation/consciousness: patient oriented x3 HEENT Head images: 2 1. 2 mm raised red lesion, possible basal cell left forehead. Neuro General: patient oriented x3 Extrem Shoulder/upper arm images: 2 1. 3 mm raised red/black lesion in lateral upper arm, tender to palpation Office Procedures Punch Biopsy Punch Biopsy Details: Preoperative diagnosis: Skin lesion left forehead, left upper arm Postoperative diagnosis: Same Procedure: Punch biopsy skin lesion left forehead and left upper arm Surgeon: Venu Walton MD Manager Demand: None Anesthesia: Lidocaine 1% with epinephrine Indications for procedure: 78-year-old female patient with history of skin cancer now presenting with 2 irritated skin lesions 1 located over the left forehead measuring approximately 2 mm a 2nd located over the lateral left upper arm measuring approximately 3 mm. Both were excised using a 4 mm punch biopsy. Operative findings: Skin lesion left forehead and left upper arm Specimen: Skin lesion left forehead and left upper arm Estimated blood loss: 2 mL Complications: None Procedure details: Patient was placed in a supine position. The site of surgery was confirmed by the patient in the left forehead and left upper arm. After assuring informed consent the skin of the left forehead was prepped with Betadine and draped in a sterile fashion. Local anesthesia was then infiltrated below the lesion. A 4 mm punch biopsy was then used to excise the lesion. This was then closed using a single 5 0 nylon suture. Sterile dressings consisting of a 2 x 2 gauze and Tegaderm were then applied. Attention was then directed to the left upper arm. Once again the skin was prepped with Betadine and draped in a sterile fashion. Local anesthesia was then infiltrated below the lesion. A 4 mm punch biopsy was then used to excise the skin lesion. Both lesions were passed off the table and sent to pathology for further examination. Skin incision was then closed using interrupted 5 0 nylon suture x1. Sterile dressing was then applied consisting of 2 x 2 gauze and Tegaderm. The patient tolerated the procedure well was discharged to home in stable condition. [id number] Biopsy Skin, single lesion [id number] Biopsy Skin, each additional lesion All charges added?: Procedure code (CPT) selection complete Assessment & Plan Assessment & Plan (1) Skin lesion of left arm: Code(s): L98.9 - Disorder of the skin and subcutaneous tissue, unspecified (2) Benign skin lesion of forehead: Code(s): L98.9 - Disorder of the skin and subcutaneous tissue, unspecified Plan 78-year-old female patient with multiple medical problems presenting with a previous history of skin CA, now with 2 new lesions located in the left forehead and left upper arm which are causing increased irritation. Both lesions appear irritated each measuring approximately 2-3 mm in diameter. Ulceration is noted at both lesions. I recommended performing a punch biopsy of both lesions for diagnosis. After discussion of the procedure, risks and alternatives, she consents to the procedure. This was performed under local anesthesia today. She will return in 1 week for suture removal and discussion of pathology results. Orders: Orders 2 Surgical Today L98.9 - Disorder of the skin and subcutaneous tissue, unspecified Coding Level of Care Code Est Pt Level 3 (31712) Diagnoses Skin lesion of left arm L98.9 Benign skin lesion of forehead L98.9 CPT Codes Punch Biopsy - Punch 1: [id number] Biopsy Skin, single lesion ([id number]) Punch Biopsy - Punch 2: [id number] Biopsy Skin, each additional lesion ([id number])
[2023-06-30 12:21] VITALS: BP 140/68; PULSE 73; BMI 28.7
== END 2023-06-30 12:31 | disposition home or self-care (01) ==
PROVIDERS: PCP Internal Medicine; Visit Provider Surgery
DX: L98.9 Disorder of the skin and subcutaneous tissue, unspecified (principal); L57.0 Actinic keratosis
CPT/HCPCS: 11104; 11105; 99213

== ENCOUNTER 2023-06-30 11:29 | Outpatient (REF) | payer MEDICARE, OTHER, SELFPAY | END 2023-06-30 11:30 | disposition home or self-care (01) | LOC: HO.LNP 11:29 | PROVIDERS: PCP Internal Medicine; Visit Provider Surgery | DX: L57.0 Actinic keratosis (principal); Z79.899 Other long term (current) drug therapy | CPT/HCPCS: 11104; 88305; 88341; 88342; 99212 ==

== ENCOUNTER 2023-07-09 10:45 | Outpatient (AMB) | payer MEDICARE, OTHER, SELFPAY ==
--- NOTE | 2023-07-09 10:46 | A.OFFVIS_ITS ---
Intake Vital Signs 3 07/09/23 10:57 Height 5 ft 7 in Weight 182 lb BMI 28.5 BP 158/74 H Blood Pressure Location Rt brachial Position Sitting Pulse 80 Intake Visit Reasons: s/p excision lesion of the forehead Intake Note: Patient is seen in office for post op assessment post excision of lesion on the forehead & left arm. Reports incisions healing well. Denies bleeding, oozing, itch. proc:06/30/23 Publishing Editor Required: No Accompanied by: Self / Same As Patient Allergies No Known Allergies Allergy (Verified 07/09/23 10:56) Medication List - Last Reconciled 07/09/23 by Venu Walton MD atorvastatin 1 tab PO DAILY esomeprazole magnesium 40 mg PO DAILY ferrous sulfate 324 mg PO DAILY gabapentin 300 mg PO Q4H losartan 1 tab PO DAILY metoprolol succinate ER 1 tab PO DAILY sucralfate 10 mL PO BID tramadol 25 mg PO Q4H zolpidem 10 mg PO BEDTIME PRN HPI HPI Comments 2 History of Present Illness0 Details 70-year-old female patient returning wit h 2 new lesions 1 located in the left forehead and a 2nd located over the left upper arm which are causing discomfort and is concerning for a recurrent skin carcinoma. She reports occasional discharge and bleeding from the sites. She denies previous excisions at this location. She underwent a punch biopsy of the 2 lesions on 06/30/2023. Pathology revealed hypertrophic actinic keratosis in the left forehead lesion and lichenoid hypertrophic actinic keratosis in the left upper arm lesion. No evidence of atypia or malignancy is identified. [facility] [place] Medical History Iron deficiency anemia Hemorrhoids Hemorrhoids with complication Fall Neuropathy High cholesterol Hypertension Cecum cancer Lumbar back pain with radiculopathy affecting lower extremity Cervical pain (neck) Surgical History Hx of local excision of skin lesion (06/30/23) Hx of colonoscopy History of esophagogastroduodenoscopy (EGD) History of cervical spinal surgery History of lumbar surgery Family History Sister Mesothelioma Social History Household Members: Spouse Housing: House Do you presently have visiting nurse or other home services: No Alcohol intake: never Patient Tobacco Use Status: Never used Tobacco Advance Directives Date on File: 03/03/22 service: No Current occupational status: retired Physical Exam Const General: comfortable Nutritional Appearance: well nourished Orientation/consciousness: patient oriented x3 HEENT Other: Excision site in the left forehead is clean, dry, and intact. Sutures removed and the wounds found to be well healed. Head images: 2 1. Neuro General: patient oriented x3 Extrem Other: Excision site left upper arm clean, dry, and intact. Sutures removed and the wounds found to be well healed Assessment & Plan Assessment & Plan (1) Benign skin lesion of forehead: Code(s): L98.9 - Disorder of the skin and subcutaneous tissue, unspecified (2) Skin lesion of left arm: Code(s): L98.9 - Disorder of the skin and subcutaneous tissue, unspecified Plan 78-year-old female patient presenting with skin lesions of the left forehead and left upper arm. Both were biopsied with a punch biopsy 1 week ago. Pathology revealed actinic keratosis in both lesions. No further surgical intervention is required at this time. She should follow up as needed. Coding Level of Care Code Global (05308) Diagnoses Benign skin lesion of forehead L98.9 Skin lesion of left arm L98.9
[2023-07-09 10:57] VITALS: BP 158/74; PULSE 80; BMI 28.5
== END 2023-07-09 11:03 | disposition home or self-care (01) ==
PROVIDERS: PCP Internal Medicine; Visit Provider Surgery
DX: L98.9 Disorder of the skin and subcutaneous tissue, unspecified (principal)
CPT/HCPCS: 99212

== ENCOUNTER → 2023-07-09 10:45 | Outpatient (BNVA) | payer MEDICARE, OTHER, SELFPAY | PROVIDERS: PCP Internal Medicine; Visit Provider Surgery | DX: L98.9 Disorder of the skin and subcutaneous tissue, unspecified (principal) | CPT/HCPCS: 99212 ==

== ENCOUNTER 2023-09-29 09:31 | Outpatient (AMB) | payer MEDICARE, OTHER, SELFPAY ==
--- NOTE | 2023-09-29 09:40 | A.OFFVIS_ITS ---
Intake Vital Signs 3 09/29/23 09:42 Height 5 ft 7 in Weight 180 lb 2 oz BMI 28.2 BP 165/81 H Blood Pressure Location Lt brachial Position Sitting Pulse 74 Intake Visit Reasons: skin lesion right thigh Intake Note: Patient is seen in office for evaluation of a skin lesion of the right thigh. Pt c/o: onset for a couple of months, has a lesion on the right thigh, admits to dry and itchy and painful Hospital Laboratory Technician Required: No Accompanied by: Self / Same As Patient Allergies No Known Allergies Allergy (Verified 09/29/23 09:42) Medication List - Last Reconciled 09/29/23 by Venu Walton MD atorvastatin 1 tab PO DAILY esomeprazole magnesium 40 mg PO DAILY ferrous sulfate 324 mg PO DAILY gabapentin 300 mg PO Q4H losartan 1 tab PO DAILY metoprolol succinate ER 1 tab PO DAILY sucralfate 10 mL PO BID tramadol 25 mg PO Q4H zolpidem 10 mg PO BEDTIME PRN HPI HPI Comments 2 History of Present Illness0 Details 70-year-old female returning with a new lesion located in her right leg just above the knee. This is been present for several months in seems to be increasing in size. She occasionally picks up but denies any bleeding or discharge. She does have pain when the lesion is palpated. She has a previous history of basal cell carcinoma therefore would like to have the lesion removed. She also reports a history of colon cancer and now has some bowel changes with constipation. She would like to have a follow-up CT abdomen and pelvis. CEA level will be drawn as well. [facility] Medical History Iron deficiency anemia Hemorrhoids Hemorrhoids with complication Fall Neuropathy High cholesterol Hypertension Cecum cancer Lumbar back pain with radiculopathy affecting lower extremity Cervical pain (neck) Surgical History Hx of local excision of skin lesion (06/30/23) Hx of colonoscopy History of esophagogastroduodenoscopy (EGD) History of cervical spinal surgery History of lumbar surgery Family History Sister Mesothelioma Social History Household Members: Spouse Housing: House Do you presently have visiting nurse or other home services: No Alcohol intake: never Patient Tobacco Use Status: Never used Tobacco Advance Directives Date on File: 03/03/22 service: No Current occupational status: retired Review of Systems Const All systems reviewed & are unremarkable except as noted in HPI and below GI Reports change in stool character Physical Exam Vital Signs: Last Vital Signs Pulse 74 09/29/23 09:42 BP 165/81 H 09/29/23 09:42 BMI result Body Mass Index 28.2 Const General: no acute distress Orientation/consciousness: patient oriented x3 Limitations: ambulation with walker Resp Effort & Inspection: normal respiratory effort GI Inspection: Yes normal to inspection Palpation (GI): Soft to palpation, nontender, no guarding and not rigid Skin Other: 1.5 cm raised hard lesion located over the right knee, tender to palpation, suggestive of a basal cell carcinoma or squamous cell carcinoma. Full body images: 2 1. Site of lesion right leg. Neuro General: patient oriented x3 Extrem Other: Lesion as noted above Office Procedures Excision Details: Preoperative diagnosis: Skin lesion right leg Postoperative diagnosis: Same Procedure: Excision of skin lesion right leg Surgeon: Venu Walton MD Notcher: None Anesthesia: Lidocaine 1% with epinephrine Indications for procedure: Enlarging lesion suspicious for skin neoplasm Operative findings: 1.5 cm round raised hard lesion suggestive of a skin neoplasm. Specimen: Skin lesion right leg Estimated blood loss: 2 mL Complications: None Procedure details: Patient was placed in a supine position. The site of surgery was confirmed by the patient. After assuring informed consent the skin was prepped with Betadine and draped in a sterile fashion. Local anesthesia was then infiltrated around the lesion. Elliptical incision oriented transversely was then created with a scalpel. This carried out through subcutaneous tissue and around the lesion. The lesion was passed off the table and sent to pathology for further examination. Hemostasis was assured using light pressure. Skin was then reapproximated using interrupted 3-0 Polysorb sutures in the dermis. Skin was then closed using interrupted 3-0 nylon sutures. Sterile dressings consisting of 2 x 2 gauze and Tegaderm were then applied. The patient will return in 1 week for suture removal. [id number]-jlciw/arms/legs 1.1-2cm Procedure code (CPT) selection complete Assessment & Plan Assessment & Plan (1) Skin lesion of right leg: Code(s): L98.9 - Disorder of the skin and subcutaneous tissue, unspecified Plan 78-year-old female patient with a previous history of basal cell carcinoma presenting with a new suspicious lesion located over the right knee. I recommended excision and after discussion of the procedure, risks, and alternatives she consents to the procedure. Tolerated the procedure well return in 1 week for suture removal. Orders: Orders 2 Surgical Today L98.9 - Disorder of the skin and subcutaneous tissue, unspecified CT abdomen pelvis wo IV con Today R19.4 - Change in bowel habit Coding Level of Care Code Est Pt Level 3 (85389) Diagnoses Skin lesion of right leg L98.9 CPT Codes Trunk/Arms/Legs - CPT: 24906-evmdy/arms/legs 1.1-2cm ([id number])
[2023-09-29 09:42] VITALS: BP 165/81; PULSE 74; BMI 28.2
== END 2023-09-29 10:07 | disposition home or self-care (01) ==
PROVIDERS: PCP Internal Medicine; Visit Provider Surgery
DX: L98.9 Disorder of the skin and subcutaneous tissue, unspecified (principal); C44.722 Squamous cell carcinoma of skin of right lower limb, including hip
CPT/HCPCS: 11603; 99213

== ENCOUNTER 2023-09-29 09:31 | Outpatient (REF) | payer MEDICARE, OTHER, SELFPAY | END 2023-09-29 09:32 | disposition home or self-care (01) | LOC: HO.LNP 09:31 | PROVIDERS: PCP Internal Medicine | DX: L98.9 Disorder of the skin and subcutaneous tissue, unspecified (principal); C44.722 Squamous cell carcinoma of skin of right lower limb, including hip | CPT/HCPCS: 11602; 11603; 88305; 99212 ==

== ENCOUNTER 2023-10-15 14:38 | Outpatient (REF) | payer MEDICARE, OTHER, SELFPAY ==
--- NOTE | ~2023-10-15 | CT_ITS ---
EXAMINATION: CT ABDOMEN AND PELVIS WITHOUT CONTRAST CLINICAL INFORMATION: Change in bowel habits COMPARISON: Multiple CTs, most recent, 01/06/2023 TECHNIQUE: Multidetector volumetric imaging was performed from the superior aspect of the liver through the pubic symphysis. Sagittal and coronal reformatted images were obtained on the technologist's workstation. This CT examination was performed using dose optimization techniques as appropriate, variously including the following: *Automated exposure control *Adjustment of mA and/or kV according to patient size (this includes techniques or standardized protocols for targeted exams where dose is matched to indication/reason for exam; i.e. extremities or head) *Use of iterative reconstruction technique DLP: 529 mGy-cm FINDINGS: MANAGER FLOAT: Scoliosis, lower lumbar and left hip surgical hardware. Nonobstructive bowel pattern. LUNG BASES: Mild atelectasis. Large hiatal hernia. Nonenlarged heart. No pericardial effusion. LIVER, GALLBLADDER, AND BILIARY TREE: Diffuse mild hypodensity to the liver parenchyma. No focal hepatic lesion or biliary ductal dilatation is present. The gallbladder is unremarkable with no evidence of radiopaque gallstones, gallbladder wall thickening, or obvious pericholecystic inflammatory changes. PANCREAS: Unremarkable. SPLEEN: Unremarkable. ADRENAL GLANDS: Unremarkable. KIDNEYS AND URETERS: The kidneys are normal in size, shape, and attenuation. No hydronephrosis, hydroureter, or calculi seen. No perinephric stranding. BLADDER: Under distended. GASTROINTESTINAL TRACT: Large hiatal hernia containing majority of the stomach. Nonobstructive bowel pattern. Unremarkable terminal ileum. Appendix not seen. Ascending colonic anastomotic suture lines. Moderate fecal retention. Somewhat bulbous appearance to the lower rectum/anus is unchanged from previous studies. ABDOMINAL WALL: Fat filled umbilical hernia. LYMPH NODES: No pathologic lymphadenopathy. VASCULAR: Relatively small caliber inferior vena cava. Atherosclerotic calcifications nonaneurysmal aorta and iliac arteries. PELVIC VISCERA: Redemonstration exophytic fibroid uterus. Phleboliths. OSSEOUS STRUCTURES: Multilevel degenerative changes. Post fusion lumbosacral spine with surgical stabilizing hardware and left hip ORIF. CT/CT abdomen pelvis wo IV con IMPRESSION: Large hiatal hernia. Moderate fecal retention. Somewhat small caliber inferior vena cava, correlate with volume status. Fleischner guidelines were followed.
== END 2023-10-15 14:39 | disposition home or self-care (01) ==
LOC: HO.CT 14:38
PROVIDERS: PCP Internal Medicine; Visit Provider Surgery
DX: R19.4 Change in bowel habit (principal)
CPT/HCPCS: 74176

== ENCOUNTER 2023-11-04 14:02 | Outpatient (REF) | payer MEDICARE, OTHER, SELFPAY ==
--- NOTE | ~2023-11-04 | CT_ITS ---
EXAMINATION: CT HEAD WITHOUT CONTRAST CLINICAL INFORMATION: Syncope. COMPARISON: CT dated 09/12/2022. TECHNIQUE: Contiguous axial imaging was performed from the skullbase to vertex without intravenous administration of contrast. This CT examination was performed using dose optimization techniques as appropriate, variously including the following: *Automated exposure control *Adjustment of mA and/or kV according to patient size (this includes techniques or standardized protocols for targeted exams where dose is matched to indication/reason for exam; i.e. extremities or head) *Use of iterative reconstruction technique DLP: 702 mGy-cm. FINDINGS: There is no evidence of acute intracranial hemorrhage or territorial infarction. No abnormal mass effect or midline shift is seen. Arroyo to white matter differentiation is well preserved. No extra-axial fluid collections are identified. Moderate diffuse brain parenchymal volume loss noted with moderate chronic white matter microangiopathic changes. There is commensurate ex vacuo dilatation of the ventricles as well. The osseous structures and soft tissues are normal. The mastoid air cells and visualized portions of the paranasal sinuses are well aerated. CT/CT head/brain wo IV con IMPRESSION: No acute intracranial pathology. Moderate chronic white matter microangiopathy and generalized brain parenchymal volume loss.
--- NOTE | ~2023-11-04 | CT_ITS ---
EXAMINATION: CT CERVICAL SPINE WITHOUT CONTRAST CLINICAL INFORMATION: 78-year-old with unsteadiness, status post fall, syncope. COMPARISON: 03/01/2022 CT cervical spine. TECHNIQUE: Volumetric CT imaging of the cervical spine was done with multiplanar reformatted reconstructions. This CT examination was performed using dose optimization techniques as appropriate, variously including the following: *Automated exposure control *Adjustment of mA and/or kV according to patient size (this includes techniques or standardized protocols for targeted exams where dose is matched to indication/reason for exam; i.e. extremities or head) *Use of iterative reconstruction technique DLP: 1109 mGy-cm FINDINGS: There is trace lordotic curvature centered at C3-C4, slightly less prominent than on the previous study. There is trace anterolisthesis at C2-C3, stable in appearance. There is mild cervicothoracic dextrocurvature convex to the right at C7-T1, stable in appearance. The atlantooccipital joints are intact and aligned. There is ninu-qf-igjfmecj retrolisthesis at the right C1-C2 facet joint, slightly progressed from previous exam which is nonspecific. Otherwise, the C1-C2 facet joints are unremarkable. Redemonstrated is evidence of previous ACDF procedures at the C4-C5 and C5-C6 levels with metallic hardware in place, unchanged in position with solid osseous interbody fusion at these levels. Vertebral body heights are well maintained. No acute fractures or focally aggressive osseous lesions are seen. There is severe disc space height loss at C3-C4 with Schmorl's nodes, degenerative endplate sclerosis and spondylosis, similar to the previous exam. Solid osseous interbody fusion noted at C4-C5 and C5-C6, unchanged. Severe disc space height loss at the C6-C7 with degenerative endplate sclerosis, Schmorl's nodes and spondylosis, similar to the previous CT. Ogizayzp-oz-zmmjey disc space height loss at C7-T1 with partial ankylosis of the intervertebral disc on the left at this level, progressed from previous study. Severe disc volume loss at the T2-T3 has progressed, with Schmorl's nodes and spondylosis. C2-C3: Very small shallow central disc protrusion with mild indentation of the ventral thecal sac with mild anterolisthesis at this level without canal stenosis, stable in appearance. Severe left-sided facet joint arthropathy is unchanged with severe left-sided neural foraminal stenosis, stable in appearance. C3-C4: Broad-based posterior disc-osteophyte complex is stable, with flattening of the ventral dural sac. Dgam-fj-vvghyxxm spinal canal stenosis asymmetric to the right is stable. Uncovertebral spurring noted bilaterally, similar to previous exam. Severe right and moderate left-sided facet joint arthropathy, similar to prior study. Severe right-sided neural foraminal stenosis is stable. C4-C5: Status post ACDF at this level, with mild osteophytic ridging without significant canal stenosis. Moderate facet hypertrophic changes bilaterally with partial ankylosis of the facet joints, similar to prior study. Mild bony neural foraminal narrowing is noted, right more than left, stable in appearance. C5-C6: Status post ACDF, with posterior osteophytic ridging and flattening of the ventral dural sac, stable in appearance. There is stable mild spinal canal stenosis. Facet hypertrophic changes with partial ankylosis of the facet joints bilaterally is unchanged. Mild left-sided foraminal narrowing is stable. C6-C7: Broad-based disc-osteophyte complex, stable in appearance, with mild encroachment of the ventral dural sac asymmetric to the right without canal stenosis. There is uncovertebral hypertrophy bilaterally with partial ankylosis of the uncovertebral joints, stable in appearance with mild right and moderate left-sided facet hypertrophic degenerative change, progressed on the left since previous exam. Mild right and moderate left-sided neural foraminal stenosis is largely unchanged. C7-T1: Soft tissues in the canal are partially obscured by shoulder artifact at this level. Cannot exclude disc herniations. No bony canal stenosis. There is facet joint arthropathy bilaterally, right more than left, and there is a moderate left-sided bony neural foraminal stenosis, stable in appearance. T1-T2: Soft tissues are partially obscured at this level. No bony canal stenosis. Aezlicjs-ko-mfueye facet joint arthropathy noted on the left, stable in appearance, with ykxu-nq-ktmupbor bilateral neural foraminal stenosis, left more than right, unchanged. Probable pleuropulmonary fibrotic changes at both lung apices, largely unchanged in appearance. Visualized extraspinal soft tissue structures in the neck are grossly unremarkable. Visualized intracranial structures demonstrate no acute process. CT/CT cervical spine wo IV con IMPRESSION: 1. Status post ACDF procedures at C4-C5 and C5-C6, unchanged in appearance with solid osseous interbody fusion at these levels, unchanged in appearance. 2. Multilevel DDD, spondylosis and DJD, as described above, mostly unchanged in appearance. 3. Mkyz-nj-frsvccnz spinal canal stenosis at C3-C4 and mild spinal canal stenosis at C5-C6, stable in appearance. 4. Multilevel bilateral bony neural foraminal stenosis, largely unchanged from previous exam. There is progression of facet hypertrophic degenerative changes on the left at C7-T1. 5. No acute fractures. 6. Slight progression of retrolisthesis at the right C1-C2 facet joint which is nonspecific.
== END 2023-11-04 14:03 | disposition home or self-care (01) ==
LOC: HO.CT 14:02
PROVIDERS: PCP Internal Medicine; Visit Provider Internal Medicine
DX: R26.81 Unsteadiness on feet (principal); H53.9 Unspecified visual disturbance; Z91.81 History of falling
CPT/HCPCS: 70450; 72125

== ENCOUNTER 2024-01-06 12:54 | Outpatient (REF) | payer MEDICARE, OTHER, SELFPAY ==
--- NOTE | 2024-01-06 13:00 | EEG_ITS ---
FINDINGS: Waking background activity consists of moderate voltage 7 to 7.5 Hz posterior frequency intermixed with low-voltage fast frequencies and some scattered theta. Photic stimulation without activation. Hyperventilation was performed briefly with no change in background activity. No paroxysmal discharges seen. IMPRESSION: This EEG is considered mildly abnormal due to mild diffuse background slowing consistent with mild diffuse encephalopathic process. No epileptiform discharges are seen. MD WOO Rojas/MODL / [id number]
--- NOTE | 2024-01-06 13:01 | HM_ITS ---
* Total monitoring time 3 days. * Underlying rhythm is sinus with an average rate of 65/Min. About 38% of the time, rate < 60/Min. * Rare supraventricular ectopy. Very brief runs noted. Longest 14 beats. Fastest 185/Min. * Rare ventricular ectopy. * No significant pauses or AV blocks. * No patient markers or diary events. MTDD
== END 2024-01-06 12:55 | disposition home or self-care (01) ==
LOC: HO.NEURO 12:54
PROVIDERS: PCP Internal Medicine; Visit Provider Internal Medicine
DX: R55 Syncope and collapse (principal)
CPT/HCPCS: 93242; 95816

== ENCOUNTER → 2024-01-06 13:01 | Outpatient (BNV) | payer MEDICARE, OTHER, SELFPAY | PROVIDERS: PCP Internal Medicine; Visit Provider Internal Medicine | DX: I49.3 Ventricular premature depolarization (principal) | CPT/HCPCS: 93244 ==

== ENCOUNTER 2024-01-12 17:03 | Outpatient (REF) | payer MEDICARE, OTHER, SELFPAY ==
--- NOTE | ~2024-01-12 | CT_ITS ---
EXAMINATION: CT head/brain wo IV con CLINICAL INFORMATION: Reason for Exam UNSPECIFIED FALL COMPARISON: CT head without contrast 11/04/2023 TECHNIQUE: Contiguous axial imaging was performed from the skull base to vertex without intravenous contrast. Sagittal and coronal reformatted images were obtained. This CT examination was performed using dose optimization techniques as appropriate, variously including the following: * Automated exposure control * Adjustment of mA and/or kV according to patient size (this includes techniques or standardized protocols for targeted exams where dose is matched to indication/reason for exam; i.e. extremities or head) Use of iterative reconstruction technique DLP: 663.01 mGy-cm FINDINGS: No acute osseous or soft tissue abnormality. Degenerative changes of the temporomandibular joints. The mastoid air cells and visualized portions of the paranasal sinuses are well aerated. There is no evidence of acute intracranial hemorrhage or territorial infarction. No abnormal mass effect or midline shift is seen. Arroyo to white matter differentiation is well preserved. No extra-axial fluid collections are identified. No hydrocephalus. Proportional prominence of the ventricles and sulcal spaces related to volume loss. Patchy periventricular and deep white matter hypoattenuation is consistent with moderate small vessel ischemic changes. CT/CT head/brain wo IV con IMPRESSION: No acute intracranial abnormality including hemorrhage, mass effect, hydrocephalus, or acute territorial edematous infarction.
== END 2024-01-12 17:04 | disposition home or self-care (01) ==
LOC: HO.CT 17:03
PROVIDERS: PCP Internal Medicine; Visit Provider Internal Medicine
DX: Z91.81 History of falling (principal)
CPT/HCPCS: 70450

== ENCOUNTER 2024-06-09 10:50 | Outpatient (AMB) | payer MEDICARE, OTHER, SELFPAY ==
--- NOTE | 2024-06-09 10:52 | MHC.OFFVIS ---
Vital Signs 06/09/24 10:59 Height 5 ft 7 in Weight 180 lb 1.883 oz BMI 28.2 Pulse 72 Intake Visit Reasons: lesions 1 on forehead and 3 on arm Intake Note: Patient is seen in office for office procedure, excision of multiple skin lesions. Pt c/o: one lesion of the forehead and 3 on the left arm, would like to have them removed Cadence Specialists Required: No Accompanied by: Self / Same As Patient Allergies No Known Allergies Allergy (Verified 06/09/24 10:59) Medication List - Last Reconciled 06/10/24 by Venu Walton MD atorvastatin 1 tab PO DAILY esomeprazole magnesium 40 mg PO DAILY ferrous sulfate 324 mg PO DAILY gabapentin 300 mg PO Q4H losartan 1 tab PO DAILY metoprolol succinate ER 1 tab PO DAILY sucralfate 10 mL PO BID tramadol 25 mg PO Q4H zolpidem 10 mg PO BEDTIME PRN HPI Comments Details: 70-year-old female patient with a prior history of skin malignancy returning today with for new lesions that she is concerned about. She reports a small crusted lesion in the mid forehead which is causing discomfort and notes increased in size over the past several weeks. In addition in her left arm she has 3 skin lesions in the upper arm which have change in size and are also causing discomfort. She has requested biopsy of all 4 lesions. 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 [facility] Medical History Iron deficiency anemia Hemorrhoids Hemorrhoids with complication Fall Neuropathy High cholesterol Hypertension Cecum cancer Lumbar back pain with radiculopathy affecting lower extremity Cervical pain (neck) Surgical History Hx of local excision of skin lesion (06/30/23) Hx of colonoscopy History of esophagogastroduodenoscopy (EGD) History of cervical spinal surgery History of lumbar surgery Family History Sister Mesothelioma Social History Household Members: Spouse Housing: House Do you presently have visiting nurse or other home services: No Alcohol intake: never Patient Tobacco Use Status: Never used Tobacco Advance Directives Date on File: 03/03/22 service: No Current occupational status: retired Review of Systems Const All systems reviewed & are unremarkable except as noted in HPI and below GI Reports change in stool character Physical Exam Vital Signs: Last Vital Signs Pulse 72 06/09/24 10:59 BMI result Body Mass Index 28.2 Const General: no acute distress Nutritional Appearance: well nourished Orientation/consciousness: patient oriented x3 HEENT Other: Skin lesion mid forehead measuring approximately 2 mm in diameter with a light brown color and irregular shape Head images: 1. Site of forehead lesion Resp Effort & Inspection: normal respiratory effort Neuro General: patient oriented x3 Extrem Other: Left upper arm with 3 skin lesions. The lower lesion is located over a previous incision for a skin cancer. This appears in the midportion of this incision as noted below. Two additional keratotic lesions appear to be possibly seborrheic keratoses. Shoulder/upper arm images: 1. 1 cm area of redness located over a previous excision site suspicious for recurrent skin neoplasm. 2. 5 mm possible seborrheic keratosis 3. 5 mm possible seborrheic keratosis Office Procedures Punch Biopsy Punch Biopsy Details: Preoperative diagnosis: Skin lesion forehead, left upper arm x3 Postoperative diagnosis: Same Procedure: Punch biopsy skin lesion mid forehead, left upper arm x3 Surgeon: Venu Walton MD Clinical Sciences Professor: None Anesthesia: Lidocaine 1% with epinephrine Indications for procedure: 78-year-old female with a prior history of skin cancer presenting with several new changing lesions as noted above. Operative findings: Lesions as noted above Specimen: Punch biopsy from skin lesion of forehead, left upper arm x3 Estimated blood loss: Less than 2 mL Complications: None Procedure details: Patient was brought to the procedure room and placed in a supine position. The site of surgery was confirmed by the patient. After assuring informed consent, the skin at each location was prepped with Betadine. Beginning into forehead a 2 mm punch biopsy was performed of the suspected lesion. Light pressure was held to maintain hemostasis. Skin was then closed using a 4-0 nylon suture. Attention was then directed to the left upper arm. Beginning at the lower lesion, a 4 mm punch biopsy was performed at the central portion of this lesion. This was passed off the table and sent to pathology for further examination. Skin was closed using a 4-0 nylon suture. The middle lesion was then biopsied using a 4 mm punch biopsy. Light pressure was held to maintain hemostasis. The specimen was passed off the table and sent to pathology for further examination. Skin was then closed using a single interrupted 4-0 nylon suture. Finally the upper lesion was also biopsied using a 4 mm punch biopsy. Light pressure was held to maintain hemostasis. Skin was then closed using a single interrupted 4-0 nylon suture. The patient tolerated the procedure well. Sterile dressings consisting of a 2 x 2 gauze and Tegaderm were then applied. She was discharged in stable condition. [id number] Biopsy Skin, single lesion 57445-Gqbwg Biopsy Skin, each additional lesion (X3) All charges added?: Procedure code (CPT) selection complete Assessment & Plan Assessment & Plan (1) Skin lesion: Code(s): L98.9 - Disorder of the skin and subcutaneous tissue, unspecified Category: Medical Plan 78-year-old female patient with a prior history of skin neoplasms presenting now with 3 new left arm skin lesions and 1 forehead lesion which he has requested excision. Excision with a punch biopsy was performed today and she will return in 1 week for suture removal and review of pathology. Orders: Orders Surgical 06/09/24 L98.9 - Disorder of the skin and subcutaneous tissue, unspecified Coding Level of Care Code Est Pt Level 3 (45676) Diagnoses Skin lesion L98.9 CPT Codes Punch Biopsy - Punch 1: 43608-Bxasq Biopsy Skin, single lesion ([id number]) Punch Biopsy - Punch 2: 35114-Txzue Biopsy Skin, each additional lesion ([id number])
[2024-06-09 10:59] VITALS: PULSE 72; BMI 28.2
== END 2024-06-09 12:22 | disposition home or self-care (01) ==
PROVIDERS: PCP Internal Medicine; Visit Provider Surgery
DX: L98.9 Disorder of the skin and subcutaneous tissue, unspecified (principal); C44.619 Basal cell carcinoma of skin of left upper limb, including shoulder; L57.0 Actinic keratosis; L82.0 Inflamed seborrheic keratosis
CPT/HCPCS: 11104; 11105; 99213

== ENCOUNTER 2024-12-09 14:23 | Outpatient (REF) | payer MEDICARE, SELFPAY ==
[2024-12-09 15:34] LABS: MANUAL DIFF FLAG NO
[2024-12-09 15:55] LABS: Basophils Absolute Auto 0.1 X10*3/uL (0.0-0.2); Basophils Percent Auto 0.7 % (0-2); Eosinophils Absolute Auto 0.1 X10*3/uL (0.0-0.4); Eosinophils Percent Auto 1.7 % (0-4); Hematocrit 38.9 % (37.0-47.0); Hemoglobin 13.2 g/dl (12.0-16.0); Imm Gran Abs Auto 0.01 X10*3/uL (0.00-0.03); Imm Gran Pct Auto 0.1 % (0.0-0.4); Lymphocytes Absolute Auto 1.8 X10*3/uL (1.2-4.9); Lymphocytes Percent Auto 23.7 % (20-40); Mean Corpuscular HGB Conc 33.9 g/dl (31.0-35.0); Mean Corpuscular Hemoglobin 33.7 pg (27.0-33.0); Mean Corpuscular Volume 99.2 fL (80.0-98.0); Mean Platelet Volume 9.9 fL (9.4-12.3); Monocytes Absolute Auto 0.6 X10*3/uL (0.1-1.2); Monocytes Percent Auto 7.8 % (2-11); Platelet Count 216 X10*3/uL (160-400); Red Blood Count 3.92 X10*6/uL (4.20-5.50); White Blood Count 7.6 X10*3/uL (4.8-10.8)
[2024-12-09 16:50] LABS: Alanine Aminotransferase 11 U/L (0-31); Albumin Level 4.4 g/dL (3.5-5.0); Anion Gap 13 (12-20); Aspartate Amino Transferase 19 U/L (5-31); Bilirubin Total 0.3 mg/dL (0.0-1.0); Blood Urea Nitrogen 12 mg/dL (9-16); Calcium 9.9 mg/dL (8.4-10.2); Carbon Dioxide 29 mmol/L (22-29); Chloride 102 mmol/L (96-108); Estimated Glomerular Filt Rate > 60; Glucose Random 101 mg/dL (60-115); Iron 165 mcg/dL (30-160); Percent Iron Saturation 67 % (15-50); Potassium 4.2 mmol/L (3.3-5.1); Sodium 140 mmol/L (135-145); Total Iron Binding Capacity 248 mcg/dL (228-428); Total Protein 7.4 g/dL (6.5-8.0); Unsaturated Iron Binding 83 ug/dL
[2024-12-09 17:18] LABS: Vitamin B12 366 pg/mL (200-900)
[2024-12-09 19:10] LABS: Alkaline Phosphatase 71 U/L (39-117)
== END 2024-12-09 14:24 | disposition home or self-care (01) ==
LOC: HO.LAB 14:23
PROVIDERS: PCP Internal Medicine; Visit Provider Internal Medicine
DX: K22.10 Ulcer of esophagus without bleeding (principal); E78.00 Pure hypercholesterolemia, unspecified; F51.01 Primary insomnia; I10 Essential (primary) hypertension; Z85.038 Personal history of other malignant neoplasm of large intestine
CPT/HCPCS: 36415; 80053; 82378; 82607; 82746; 83540; 85025; 96127; 99202

== ENCOUNTER 2024-12-09 14:23 | Outpatient (AMB) | payer MEDICARE, OTHER, SELFPAY ==
[2024-12-09 14:26] VITALS: BP 124/80; PULSE 86; TEMP 36.5; O2SAT 97; BMI 27.7
--- NOTE | 2024-12-09 14:26 | A.OFFPC_ITS ---
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 Allergies No Known Allergies Allergy (Verified 12/09/24 14:27) Tobacco use date assessed: 12/09/24 Fall risk assessment: 1 Fall in past year Last assessed Fall Risk: 12/09/24 Dental Screening Dental Screen Date: 12/09/24 Did you have a dental visit in the last 12 months?: Yes Did you have a dental problem in the last 6 months where you did not have access to dental care?: No HPI HPI Comments History of Present Illness Details The patient is a 79 year old male with a past medical history of skin cancer, hypertension, hyperlipidemia, GERD, insomnia presenting for follow up CV: on lipitor, losartan, metoprolol. 124/80. Denies chest pain, exertional dyspnea. GI: History of erosive esophagitis ABLA. [place] [facility] [place] Chronic pain: On tramadol Has seen surgery in past for skin lesion/cancer-BCC, SCC Insomnia: stable on zolpidem Colonoscopy and EGD 2017 for ALESHIA with large hemorrhoids and hiatal hernia noted. ROS CONSTITUTIONAL: Denies weight loss, fever and chills. HEENT: Denies changes in vision and hearing. RESPIRATORY: Denies SOB and cough. CV: Denies palpitations and CP GI: Denies abdominal pain, nausea, vomiting and diarrhea. : Denies dysuria and urinary frequency. MSK: Denies new myalgia and joint pain. SKIN: Denies rash and pruritus. NEUROLOGICAL: Denies headache PSYCHIATRIC: Denies recent changes in mood. PHYSICAL EXAM: GENERAL: Alert and oriented x 3. NAD EYES: EOMI. Anicteric. HENT: Moist mucous membranes. No scleral icterus. No cervical lymphadenopathy. LUNGS: Clear to auscultation bilaterally. CARDIOVASCULAR: Regular rate and rhythm. No murmur. No JVD. ABDOMEN: Soft, non-tender +bs EXTREMITIES: No edema. Non-tender. SKIN: No rashes or lesions. Warm. NEUROLOGIC: No focal neurological deficits. CN II-XII grossly intact PSYCHIATRIC: Cooperative. Appropriate mood and affect [facility] Medical History Hypertension Iron deficiency anemia Hemorrhoids Hemorrhoids with complication Fall Neuropathy High cholesterol Cecum cancer Lumbar back pain with radiculopathy affecting lower extremity Cervical pain (neck) Surgical History Hx of local excision of skin lesion (06/30/23) Hx of colonoscopy History of esophagogastroduodenoscopy (EGD) History of cervical spinal surgery History of lumbar surgery Family History Sister Mesothelioma Social History Household Members: Spouse Housing: House Do you presently have visiting nurse or other home services: No Alcohol intake: never Patient Tobacco Use Status: Never used Tobacco e-Cigarette/Vaping Use: Never Used Advance Directives Date on File: 03/03/22 service: No Current occupational status: retired Cognitive needs: Yes (walker) Hearing needs: No Vision needs: No Questionnaire PHQ-9 Over the last 2 weeks, how often have you been bothered by any of the following problems? 1. Little interest or pleasure in doing things: not at all 2. Feeling down, depressed, or hopeless: not at all 3. Trouble falling or staying asleep, or sleeping too much: not at all 4. Feeling tired or having little energy: not at all 5. Poor appetite or overeating: not at all 6. Feeling bad about yourself - or that you are a failure or have let yourself or your family down: not at all 7. Trouble concentrating on things, such as reading the newspaper or watching television: not at all 8. Moving or speaking so slowly that other people could have noticed. Or the opposite - being so fidgety or restless that you have been moving around a lot more than usual: not at all 9. Thoughts that you would be better off or of hurting yourself in some way: not at all Total score: 0 Depression Screening Interpretation: Negative Depression Screening Done: Yes 57027 - PHQ-9 Billing: Yes Source: Developed by Drs. Daija Waldron Kurt Kroenke and colleagues, with an educational jaki from [employer]. Thrive Questionnaire Date Thrive assessed: 12/09/24 I am a: Patient Within the past 12 months, did the food you bought not last and you didn't have the money to get more?: Never true Within the past 12 months, did you worry whether your food would run out before you got money to buy more?: Never true Do you have trouble paying for medicines?: No Do you have trouble getting transportation to medical appointments?: No Do you have trouble paying your heating and electricity bill?: No Do you have trouble taking care of your child, family member or friend?: No Do you have trouble with day-to-day activities such as bathing, preparing meals, shopping, managing finances, etc.?: No Are you currently unemployed and looking for a job?: No Are you interested in more education?: No THRIVE Score: 0 AUDIT C Alcohol Use Questionnaire (AUDIT-C) 1. How often do you have a drink containing alcohol?: Never 3. How often do you have six or more drinks on one occasion?: Never Total Score: 0 SEAN-7 AMB Questionnaire SEAN-7 Date SEAN - 7 assessed: 12/09/24 Feeling nervous, anxious, or on edge: 0 = Not at all Not being able to stop or control worryin = Not at all Worrying too much about different things: 0 = Not at all Trouble relaxin = Not at all Being so restless that it is hard to sit still: 0 = Not at all Becoming easily annoyed or irritable: 0 = Not at all Feeling afraid as if something awful might happen: 0 = Not at all Total SEAN-7 score (0-4 normal; 5-9 mild; 10-14 moderate; 15-21 severe): 0 Source: Developed by Drs. Byron Velasquez, Nii Wagner and colleagues, with an educational jaki from [employer]. Physical exam (Primary Care) Tobacco/Smoking Status: Tobacco use Status Tobacco use date assessed 12/09/24 12/09/24 14:31 Patient Tobacco Use Status Never used Tobacco 12/09/24 14:31 e-Cigarette/Vaping Use Never Used 12/09/24 14:31 PHQ-9: PHQ-9 Score PHQ-9: Total score 0 12/09/24 14:31 Depression Screening Interpretation: Negative Thrive Assessment: Date of Thrive Assessment Date Thrive assessed 12/09/24 12/09/24 14:31 Coding Level of Care Code New Pt Level 4 (55245) Diagnoses Erosive esophagitis K22.10 High cholesterol E78.00 Primary insomnia F51.01 Insomnia type: primary Additional Codes PHQ-9 - 67159 - PHQ-9 Billing: Yes ([id number]) Assessment & Plan Assessment & Plan (1) Erosive esophagitis: Code(s): K22.10 - Ulcer of esophagus without bleeding Category: Medical (2) High cholesterol: Code(s): E78.00 - Pure hypercholesterolemia, unspecified Category: Medical (3) Insomnia: Code(s): G47.00 - Insomnia, unspecified Category: Medical Qualifiers: Insomnia type: primary Qualified Code(s): F51.01 - Primary insomnia Plan 79 yo to establish care past medical surgical social reviewed HTN-well controlled insomnia stable on medication Anemia-check labs Orders: Orders Complete Blood Count Auto Diff Today K22.10 - Ulcer of esophagus without bleeding, Z85.038 - Personal history of other malignant neoplasm of large intestine IRON PROFILE Today K22.10 - Ulcer of esophagus without bleeding, Z85.038 - Personal history of other malignant neoplasm of large intestine Vitamin B12 and Folate Today K22.10 - Ulcer of esophagus without bleeding, Z85.038 - Personal history of other malignant neoplasm of large intestine Carcinoembryonic Antigen Today K22.10 - Ulcer of esophagus without bleeding, Z85.038 - Personal history of other malignant neoplasm of large intestine Comprehensive Met. Panel Today K22.10 - Ulcer of esophagus without bleeding, Z85.038 - Personal history of other malignant neoplasm of large intestine Medications: Changed From tramadol 50 mg PO Q4H PRN 12 tabs 0RF pain To tramadol 50 mg PO .every 6 hours PRN 30 tabs 0RF pain Refilled zolpidem 10 mg PO BEDTIME PRN 60 tabs 0RF Insomnia G47.00 - Insomnia, unspecified
== END 2024-12-09 15:02 | disposition home or self-care (01) ==
LOC: HO.HMCHD 14:23
PROVIDERS: PCP Internal Medicine; Visit Provider Internal Medicine
DX: K22.10 Ulcer of esophagus without bleeding (principal); E78.00 Pure hypercholesterolemia, unspecified; F51.01 Primary insomnia

== ENCOUNTER 2025-04-06 13:17 | Outpatient (AMB) | payer MEDICARE, SELFPAY ==
[2025-04-06 13:33] VITALS: BP 128/74; PULSE 64; TEMP 36.2; O2SAT 95; BMI 28.8
--- NOTE | 2025-04-06 13:33 | A.OFFPC_ITS ---
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 Required: No Accompanied by: Self / Same As Patient Allergies No Known Allergies Allergy (Verified 04/06/25 13:33) Tobacco use date assessed: 04/06/25 Fall risk assessment: No Falls in past year Last assessed Fall Risk: 04/06/25 Dental Screening Dental Screen Date: 04/06/25 Did you have a dental visit in the last 12 months?: Yes Did you have a dental problem in the last 6 months where you did not have access to dental care?: No HPI HPI Comments History of Present Illness Details The patient is a 79 year old male with a past medical history of skin cancer, hypertension, hyperlipidemia, GERD, insomnia presenting for follow up CV: on lipitor, losartan, metoprolol. Blood pressure controlled Denies chest pain, exertional dyspnea. GI: History of erosive esophagitis ABLA. [place] [facility] [place] Chronic pain: On tramadol, gabapentin 600-700mg every 4-6h which has been chronic. Tramadol use is seldom. Increased low back and neck pain. Low back pain with radiation down the left leg. Neck pain radiates to bilateral shoulders. Dr Mistry needs MRI repeated prior to scheduling. Lumbar surgery by Dr Mistry, Dr Willett did neck surgery Has seen surgery in past for skin lesion/cancer-BCC, SCC Insomnia: stable on zolpidem. Increased stress with aging and her own medical issues. endorses increased fatigue Colonoscopy and EGD 2017 for ALESHIA with large hemorrhoids and hiatal hernia noted. ROS CONSTITUTIONAL: Denies weight loss, fever and chills. HEENT: Denies changes in vision and hearing. RESPIRATORY: Denies SOB and cough. CV: Denies palpitations and CP GI: Denies abdominal pain, nausea, vomiting and diarrhea. : Denies dysuria and urinary frequency. MSK: Denies new myalgia and joint pain. SKIN: Denies rash and pruritus. NEUROLOGICAL: Denies headache PSYCHIATRIC: Denies recent changes in mood. PHYSICAL EXAM: GENERAL: Alert and oriented x 3. NAD EYES: EOMI. Anicteric. HENT: Moist mucous membranes. No scleral icterus. No cervical lymphadenopathy. LUNGS: Clear to auscultation bilaterally. CARDIOVASCULAR: Regular rate and rhythm. No murmur. No JVD. ABDOMEN: Soft, non-tender +bs EXTREMITIES: No edema. Non-tender. SKIN: No rashes or lesions. Warm. NEUROLOGIC: No focal neurological deficits. CN II-XII grossly intact PSYCHIATRIC: Cooperative. Appropriate mood and affect [facility] Medical History Hypertension Iron deficiency anemia Hemorrhoids Hemorrhoids with complication Fall Neuropathy High cholesterol Cecum cancer Lumbar back pain with radiculopathy affecting lower extremity Cervical pain (neck) Surgical History Hx of local excision of skin lesion (06/30/23) Hx of colonoscopy History of esophagogastroduodenoscopy (EGD) History of cervical spinal surgery History of lumbar surgery Family History Sister Mesothelioma Mother No problems noted. Father No problems noted. Social History Household Members: Spouse Housing: House Do you presently have visiting nurse or other home services: No Alcohol intake: never Patient Tobacco Use Status: Never used Tobacco e-Cigarette/Vaping Use: Never Used Advance Directives Date on File: 03/03/22 service: No Current occupational status: retired Cognitive needs: Yes (walker) Hearing needs: No Vision needs: No Questionnaire PHQ-9 Over the last 2 weeks, how often have you been bothered by any of the following problems? 1. Little interest or pleasure in doing things: not at all 2. Feeling down, depressed, or hopeless: not at all 3. Trouble falling or staying asleep, or sleeping too much: not at all 4. Feeling tired or having little energy: not at all 5. Poor appetite or overeating: not at all 6. Feeling bad about yourself - or that you are a failure or have let yourself or your family down: not at all 7. Trouble concentrating on things, such as reading the newspaper or watching television: not at all 8. Moving or speaking so slowly that other people could have noticed. Or the opposite - being so fidgety or restless that you have been moving around a lot more than usual: not at all 9. Thoughts that you would be better off or of hurting yourself in some way: not at all Total score: 0 Depression Screening Interpretation: Negative Depression Screening Done: Yes 14918 - PHQ-9 Billing: Yes Source: Developed by Drs. Byron Velasquez, Daija Lindsey, Nii oSsa and colleagues, with an educational jaki from [employer]. Thrive Questionnaire Date Thrive assessed: 04/06/25 I am a: Patient Within the past 12 months, did the food you bought not last and you didn't have the money to get more?: Never true Within the past 12 months, did you worry whether your food would run out before you got money to buy more?: Never true Do you have trouble paying for medicines?: No Do you have trouble getting transportation to medical appointments?: No Do you have trouble paying your heating and electricity bill?: No Do you have trouble taking care of your child, family member or friend?: No Do you have trouble with day-to-day activities such as bathing, preparing meals, shopping, managing finances, etc.?: No Are you currently unemployed and looking for a job?: No Are you interested in more education?: No THRIVE Score: 0 AUDIT C Alcohol Use Questionnaire (AUDIT-C) 1. How often do you have a drink containing alcohol?: Never 3. How often do you have six or more drinks on one occasion?: Never Total Score: 0 SEAN-7 AMB Questionnaire SEAN-7 Date SEAN - 7 assessed: 04/06/25 Feeling nervous, anxious, or on edge: 0 = Not at all Not being able to stop or control worryin = Not at all Worrying too much about different things: 0 = Not at all Trouble relaxin = Not at all Being so restless that it is hard to sit still: 0 = Not at all Becoming easily annoyed or irritable: 0 = Not at all Feeling afraid as if something awful might happen: 0 = Not at all Total SEAN-7 score (0-4 normal; 5-9 mild; 10-14 moderate; 15-21 severe): 0 Source: Developed by Drs. Byron Velasquez, Daija Lindsey, Nii Sosa and colleagues, with an educational jaki from [employer]. Physical exam (Primary Care) Vital Signs: Last Vital Signs Temp 97.2 F 04/06/25 13:33 Pulse 64 04/06/25 13:33 BP 128/74 04/06/25 13:33 Pulse Ox 95 04/06/25 13:33 Oxygen Delivery Method Room Air 04/06/25 13:33 BMI result Body Mass Index 28.8 Tobacco/Smoking Status: Tobacco use Status Tobacco use date assessed 04/06/25 04/06/25 13:34 Patient Tobacco Use Status Never used Tobacco 04/06/25 13:34 e-Cigarette/Vaping Use Never Used 04/06/25 13:34 PHQ-9: PHQ-9 Score PHQ-9: Total score 0 04/06/25 13:34 Depression Screening Interpretation: Negative Thrive Assessment: Date of Thrive Assessment Date Thrive assessed 04/06/25 04/06/25 13:34 Coding Level of Care Code Est Pt Level 4 (51453) Complex EM visit Add On G2211 Diagnoses Primary hypertension I10 Hypertension type: primary hypertension Cervical pain (neck) M54.2 Lumbar back pain with radiculopathy affecting lower extremity M54.16 Fatigue, unspecified type R53.83 Fatigue type: unspecified Additional Codes PHQ-9 - 02558 - PHQ-9 Billing: Yes ([id number]) Assessment & Plan Assessment & Plan (1) Hypertension: Code(s): I10 - Essential (primary) hypertension Category: Medical Qualifiers: Hypertension type: primary hypertension Qualified Code(s): I10 - Essential (primary) hypertension (2) Cervical pain (neck): Code(s): M54.2 - Cervicalgia Category: Medical (3) Lumbar back pain with radiculopathy affecting lower extremity: Code(s): M54.16 - Radiculopathy, lumbar region Category: Medical (4) Fatigue: Code(s): R53.83 - Other fatigue Category: Medical Qualifiers: Fatigue type: unspecified Qualified Code(s): R53.83 - Other fatigue Plan Fatigue-labs ordered Back and neck pain-continue gabapentin. Discussed her high dose is likely contributing to fatigue. Upcoming MRI. referral NS placed Orders: Orders Basic Metabolic Panel Today I10 - Essential (primary) hypertension LDL Cholesterol Direct Today E78.00 - Pure hypercholesterolemia, unspecified, I10 - Essential (primary) hypertension, R53.83 - Other fatigue Complete Blood Count Auto Diff Today E78.00 - Pure hypercholesterolemia, unspecified, I10 - Essential (primary) hypertension, R53.83 - Other fatigue IRON PROFILE Today E78.00 - Pure hypercholesterolemia, unspecified, I10 - Essential (primary) hypertension, R53.83 - Other fatigue Vitamin B12 and Folate Today E78.00 - Pure hypercholesterolemia, unspecified, I10 - Essential (primary) hypertension, R53.83 - Other fatigue UA CC w/rflx Micro + Cult Today R53.83 - Other fatigue Referrals Neurosurgery Referral M54.16 - Radiculopathy, lumbar region, Z98.890 - Other specified postprocedural states Medications: Refilled gabapentin Take 2-3 capsule(s)by mouth with 400mg every 4-6 hours as needed for control of neuropathy. 200 - 300 mg (2 - 3 x 100 mg) PO Q4-6H PRN 810 caps 1RF pain
== END 2025-04-06 14:05 | disposition home or self-care (01) ==
LOC: HO.HMCHD 13:17
PROVIDERS: PCP Internal Medicine; Visit Provider Internal Medicine
DX: I10 Essential (primary) hypertension (principal); M54.2 Cervicalgia; M54.16 Radiculopathy, lumbar region; R53.83 Other fatigue

== ENCOUNTER 2025-04-06 13:17 | Outpatient (REF) | payer MEDICARE, SELFPAY ==
[2025-04-06 14:44] LABS: MANUAL DIFF FLAG NO
[2025-04-06 14:52] LABS: Appearance Urine Clear; Glucose Urine UA Negative (Negative); PH 7.0 (5.0-9.0); Specific Gravity - Urine 1.010 (1.005-1.025); UMIC TRIGGER UACC YES
[2025-04-06 14:55] LABS: UACC Culture Trigger YES
[2025-04-06 15:01] LABS: Hematocrit 37.2 % (37.0-47.0); Hemoglobin 12.2 g/dl (12.0-16.0); Imm Gran Abs Auto 0.03 X10*3/uL (0.00-0.03); Imm Gran Pct Auto 0.4 % (0.0-0.4); Lymphocytes Absolute Auto 1.9 X10*3/uL (1.2-4.9); Mean Corpuscular HGB Conc 32.8 g/dl (31.0-35.0); Mean Corpuscular Hemoglobin 33.3 pg (27.0-33.0); Mean Corpuscular Volume 101.6 fL (80.0-98.0); NRBC Abs Auto 0.000 X10*3/uL (0.0-0.012); NRBC Pct Auto 0.0 /100WBC (0.0-0.2); Platelet Count 227 X10*3/uL (160-400); Red Blood Count 3.66 X10*6/uL (4.20-5.50); White Blood Count 6.9 X10*3/uL (4.8-10.8)
[2025-04-06 16:34] LABS: Anion Gap 14 (12-20); Blood Urea Nitrogen 14 mg/dL (9-16); Calcium 9.6 mg/dL (8.4-10.2); Carbon Dioxide 28 mmol/L (22-29); Chloride 102 mmol/L (96-108); Estimated Glomerular Filt Rate > 60; Iron 132 mcg/dL (30-160); Percent Iron Saturation 54 % (15-50); Potassium 4.8 mmol/L (3.3-5.1); Sodium 139 mmol/L (135-145); Total Iron Binding Capacity 244 mcg/dL (228-428); Unsaturated Iron Binding 112 ug/dL
[2025-04-06 17:01] LABS: Folate 8.4 ng/mL (> or = 4.0); Vitamin B12 321 pg/mL (200-900)
== END 2025-04-06 13:18 | disposition home or self-care (01) ==
LOC: HO.LAB 13:17
PROVIDERS: PCP Internal Medicine; Visit Provider Internal Medicine
DX: I10 Essential (primary) hypertension (principal); M54.2 Cervicalgia; M54.16 Radiculopathy, lumbar region; R53.83 Other fatigue; E78.00 Pure hypercholesterolemia, unspecified; D50.9 Iron deficiency anemia, unspecified
CPT/HCPCS: 36415; 80048; 81001; 82607; 82746; 83540; 83721; 85025; 87086; 87088; 87186; 96127; 99212

== ENCOUNTER → 2025-04-09 13:33 | Outpatient (BNV) | payer MEDICARE, SELFPAY | PROVIDERS: PCP Internal Medicine; Visit Provider Radiology Diagnostic Radiology | DX: M47.815 Spondylosis without myelopathy or radiculopathy, thoracolumbar region (principal); M48.05 Spinal stenosis, thoracolumbar region; M47.12 Other spondylosis with myelopathy, cervical region; M48.02 Spinal stenosis, cervical region; G95.29 Other cord compression | CPT/HCPCS: 72141; 72158 ==

== ENCOUNTER 2025-04-09 13:43 | Outpatient (REF) | payer MEDICARE, SELFPAY ==
--- NOTE | ~2025-04-09 | MR_ITS ---
EXAMINATION: MR CERVICAL SPINE WITHOUT CONTRAST CLINICAL INFORMATION: Cervicalgia. COMPARISON: September 16, 2017 reporting anterior cervical fusion and discectomy C4-5 C5-6. Correlated to CT cervical spine dated November 04, 2023. TECHNIQUE: MRI of the cervical spine was obtained using routine sequences without contrast. FINDINGS: Craniocervical junction is intact. Normal position of the cerebellar tonsils. Hyperintense T2 signal within the radha. There is a subtle bone marrow STIR signal in the inferior endplate of C3 and at the endplates of C6-7. Multilevel marginal osteophyte formation C3 C7 pronounced at C3-4 and C6-7 levels. Grade 1 anterolisthesis C2-3. Reverse curvature apex at C3-4. Paramagnetic field distortion secondary to intervertebral disc spacers C4-5 and C5-6 level. There is a focal right midline cervical spinal cord T2 STIR signal at C4-5 level. Grade 1 anterolisthesis T2-3. C2-3: No central spinal canal stenosis. Left neuroforamina narrowing on a degenerative basis. C3-4: Broad-based disc osteophyte complex formation resulting in ventral spinal cord deformity and CSF effacement of the ventral aspect of the thecal sac. Bilateral neuroforamina narrowing on a degenerative basis. C4-5: Postsurgical changes. Right hemicord T2 signal. No gross neuroforamina stenosis. C5-6: Postsurgical changes. No cord compression. No neuroforamina stenosis. C6-7: Broad-based disc osteophyte compresses formation abutting the cord. Bilateral neuroforamina narrowing. C7-T1: No cord compression. Left neuroforamina narrowing on a degenerative basis. T1-2: No cord compression. Left neuroforamina narrowing on a degenerative basis. No prevertebral compartment hematoma, mass or fluid collection. Flow-void signal within the main vessels is normal. Codominant vertebral arteries. Probable slow flow in the left internal jugular vein. 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 Multilevel left-sided neuroforamina stenosis pronounced at C2-3 C7-T1. Grade 1 anterolisthesis C2-3 and T2-3. Electronically signed by: Zhao Linares MD 04/10/2025 09:27 AM EDT
--- NOTE | ~2025-04-09 | MR_ITS ---
EXAMINATION: MR LUMBAR SPINE WITHOUT AND WITH CONTRAST CLINICAL INFORMATION: Status post procedure/surgery. Z98.890 COMPARISON: January 02, 2017. TECHNIQUE: MRI of the lumbar spine was obtained using routine sequences with and without contrast. Intravenous contrast: Gadolinium based 8.0 mL. No reported immediate complications FINDINGS: Last rib-bearing vertebra labeled T12. No bone marrow STIR signal abnormality. Paramagnetic field distortion secondary to metallic hardware at L5-S1. Levoconvex rotoscoliosis apex at L2. Multilevel marginal osteophyte formation and disc desiccation from T11-12 to L4 levels. Bone marrow inhomogeneity. Multilevel Schmorl nodes in the endplates of T10-11. Grade 1 anterolisthesis, T11-T12 and L4-5. Grade 1 retrolisthesis, L1 to and L2-3 levels. Status post arthrodesis, L5-S1. Conus medullaris ends at inferior endplate of L1 with normal signal. No abnormal enhancement within the neural elements of the thecal sac. There is hyperintense STIR probably enhancing signal within the muscular plane of the facet joints at L3-4, right greater than left. No gross fluid collections. No epidural hematoma. No clumping or grouping of the neural elements of the thecal sac. T11-12: Sagittal sequences demonstrated a left subarticular and foraminal herniated disc abutting the spinal cord causing left neuroforamina stenosis. T12-L1: Broad-based disc bulging. Facet joint hypertrophy. No compression upon neural elements. L1-2: Right neuroforamina stenosis compressing the L2 exiting nerve root. Facet joint and ligamentum flavum hypertrophy producing the AP diameter of the thecal sac. No gross compression upon neural elements of the central spinal canal. Bilateral facet joint effusion. L2-3: Broad-based disc bulging. Facet joint and ligamentum flavum hypertrophy. Right neuroforamina and stenosis compressing the right L2 exiting nerve root. Central spinal canal stenosis encroaching the neural elements. L3-4: Broad-based disc bulging. Facet joint and ligamentum flavum hypertrophy. Reduced AP diameter of the thecal sac. Right neuroforamina stenosis encroaching probably compressing the right L3 exiting nerve root. L4-5: Broad-based disc bulging. Facet joint and ligamentum flavum hypertrophy. Reduced AP diameter of the thecal sac. Bilateral neuroforamina stenosis, (right likely compressing the L4 exiting nerve roots. L5-S1: Postsurgical changes. No central spinal canal stenosis. Bilateral neuroforamina narrowing likely encroaching the L5 exiting nerve roots. Asymmetric volume loss of the psoas muscle. Fatty infiltration in the lower lumbar muscles, pronounced at L4-5. Cystic lesions in the kidneys. MR/MR lumbar spine wo/w con IMPRESSION: Multilevel thoracolumbar spondylosis and levoconvex rotoscoliosis causing the right greater than left bilateral neuroforamina stenosis encroaching probably compressing the exiting nerve roots. Left subarticular and foraminal herniated disc at T11-12 causing left neuroforamina stenosis and abutting the spinal cord. Posttreatment changes versus edema in the facet joints of L3-4. No epidural hematoma and or abscess. No pseudomeningocele. Bilateral neuroforamina stenosis at L4-5 compressing the L4 exiting nerve roots on a degenerative basis. Electronically signed by: Zhao Linares MD 04/10/2025 09:51 AM EDT
== END 2025-04-09 13:44 | disposition home or self-care (01) ==
LOC: HO.MRI 13:43
PROVIDERS: PCP Internal Medicine; Visit Provider Internal Medicine
DX: M54.16 Radiculopathy, lumbar region (principal); M54.2 Cervicalgia; Z98.890 Other specified postprocedural states
CPT/HCPCS: 72141; 72158; A9585

== ENCOUNTER 2025-05-08 11:32 | Outpatient (AMB) | payer MEDICARE, SELFPAY ==
[2025-05-08 08:30] VITALS: BP 128/80; PULSE 71; TEMP 36.3; O2SAT 97; BMI 28.8
--- NOTE | 2025-05-08 08:30 | MHC.PC.OV ---
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 Services Required: No Accompanied by: Self / Same As Patient Allergies No Known Allergies Allergy (Verified 05/12/25 10:39) Medication List - Last Reconciled 05/14/25 by PRABHU Alan acetaminophen (Tylenol Extra Strength) 500 mg PO Q4H atorvastatin 1 tab PO DAILY docusate sodium (Colace) 100 mg PO DAILY PRN esomeprazole magnesium 40 mg PO DAILY ferrous sulfate 324 mg PO DAILY gabapentin 400 mg PO Q4-6H PRN gabapentin 200 - 300 mg (2 - 3 x 100 mg) PO Q4-6H PRN losartan 50 mg PO BID metoprolol succinate ER 1 tab PO DAILY zolpidem 10 mg PO BEDTIME Tobacco use date assessed: 05/08/25 Fall risk assessment: No Falls in past year Last assessed Fall Risk: 05/08/25 Dental Screening Dental Screen Date: 05/08/25 Did you have a dental visit in the last 12 months?: Yes Did you have a dental problem in the last 6 months where you did not have access to dental care?: No HPI HPI Comments History of Present Illness Details The patient is a 79-year-old female with HTN, HLD, GERD, Insomnia, Anemia, History of colon cancer and low back pain presenting for management of multiple chronic conditions and follow-up on spinal issues. Patient is on Metoprolol and Losartan for HTN. Her BP today was 128/80. She is on Atorvastatin for HLD. She is on Esomeprazole for GERD. She is on Iron suppliment for Anemia. She has labs in March that were essentially normal. 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 She reports exacerbation of her back condition after lifting a heavy object, leading to significant pain and an MRI confirming the disc issues. She is scheduled to see a neurosurgeon for further evaluation and management next week. The patient experiences insomnia, which she attributes to the of her son from Hodgkin's lymphoma. She has been taking Zolpidem 10 mg at bedtime since then and acknowledges potential dependency on the medication. 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 The neuropathy is managed with Gabapentin 600 mg, taken in divided doses throughout the night. [facility] Medical History (Updated 05/14/25 @ 22:48 by PRABHU Alan) Cecum cancer Cervical pain (neck) Fall GERD without esophagitis Hemorrhoids Hemorrhoids with complication High cholesterol Hypertension Iron deficiency anemia Lumbar back pain with radiculopathy affecting lower extremity Neuropathy Surgical History History of cervical spinal surgery History of esophagogastroduodenoscopy (EGD) History of lumbar surgery Hx of colonoscopy (~03/20/17) Hx of local excision of skin lesion (06/30/23) Family History (Updated 05/08/25 @ 13:07 by Mechelle Bro MA) Sister Mesothelioma Mother No problems noted. Father No problems noted. Social History Household Members: Spouse Housing: House Do you presently have visiting nurse or other home services: No Alcohol intake: never Patient Tobacco Use Status: Never used Tobacco e-Cigarette/Vaping Use: Never Used Advance Directives Date on File: 03/03/22 service: No Current occupational status: retired Cognitive needs: Yes (walker) Hearing needs: No Vision needs: No Questionnaire PHQ-9 Over the last 2 weeks, how often have you been bothered by any of the following problems? 1. Little interest or pleasure in doing things: not at all 2. Feeling down, depressed, or hopeless: not at all 3. Trouble falling or staying asleep, or sleeping too much: not at all 4. Feeling tired or having little energy: not at all 5. Poor appetite or overeating: not at all 6. Feeling bad about yourself - or that you are a failure or have let yourself or your family down: not at all 7. Trouble concentrating on things, such as reading the newspaper or watching television: not at all 8. Moving or speaking so slowly that other people could have noticed. Or the opposite - being so fidgety or restless that you have been moving around a lot more than usual: not at all 9. Thoughts that you would be better off or of hurting yourself in some way: not at all Total score: 0 Depression Screening Interpretation: Negative Depression Screening Done: Yes Source: Developed by Drs. Byron Velsaquez, Nii Wagner and colleagues, with an educational jaki from [employer]. Thrive Questionnaire Date Thrive assessed: 05/08/25 I am a: Patient Within the past 12 months, did the food you bought not last and you didn't have the money to get more?: Never true Within the past 12 months, did you worry whether your food would run out before you got money to buy more?: Never true Do you have trouble paying for medicines?: No Do you have trouble getting transportation to medical appointments?: No Do you have trouble paying your heating and electricity bill?: No Do you have trouble taking care of your child, family member or friend?: No Do you have trouble with day-to-day activities such as bathing, preparing meals, shopping, managing finances, etc.?: No Are you currently unemployed and looking for a job?: No Are you interested in more education?: No THRIVE Score: 0 AUDIT C Alcohol Use Questionnaire (AUDIT-C) 1. How often do you have a drink containing alcohol?: Never 3. How often do you have six or more drinks on one occasion?: Never Total Score: 0 SEAN-7 AMB Questionnaire SEAN-7 Date SEAN - 7 assessed: 05/08/25 Feeling nervous, anxious, or on edge: 0 = Not at all Not being able to stop or control worryin = Not at all Worrying too much about different things: 0 = Not at all Trouble relaxin = Not at all Being so restless that it is hard to sit still: 0 = Not at all Becoming easily annoyed or irritable: 0 = Not at all Feeling afraid as if something awful might happen: 0 = Not at all Total SEAN-7 score (0-4 normal; 5-9 mild; 10-14 moderate; 15-21 severe): 0 Source: Developed by Daija Robins, Nii Sosa and colleagues, with an educational jaki from [employer]. Review of Systems Const Details: CONSTITUTIONAL Negative HEAD/NECK Negative EAR/NOSE/MOUTH/THROAT Negative RESPIRATORY Negative CARDIOVASCULAR Negative GASTROINTESTINAL Heart burn contolled on Esomeprazole MUSCULOSKELETAL Reports pain in the back and left leg, exacerbated by lifting heavy objects. NEUROLOGICAL Reports burning neuropathy, managed with Gabapentin. PSYCHIATRIC Reports insomnia, managed with Zolpidem Physical exam (Primary Care) Vital Signs: Last Vital Signs Temp 97.3 F 05/08/25 08:30 Pulse 71 05/08/25 08:30 BP 128/80 05/08/25 08:30 Pulse Ox 97 05/08/25 08:30 Oxygen Delivery Method Room Air 05/08/25 08:30 BMI result Body Mass Index 28.8 GENERAL Well developed, Well nourished, in no apparent distress HEENT Head-Normocephalic Neck- Supple, No lymphadenopathy, thyroid WNL RESPIRATORY Normal I:E, Clear to auscultation CARDIOVASCULAR Regular, rate and rhythm, No murmurs or rubs GASTROINTESTINAL Soft, nontender, normal bowel sounds, no masses MUSCULOSKELETAL Back-Decreased ROM, Tender in Lumbar, Tender with motion, DTR 2+ symmetrical, Gait slow with walker Joints- no pain swelling or deformity NEUROLOGICAL Gait slow with walker PSYCHIATRIC Oriented to person, place and time Mood and affect WNL Appearance WNL Speech WNL Thought processes WNL Tobacco/Smoking Status: Tobacco use Status Tobacco use date assessed 05/08/25 05/08/25 08:31 Patient Tobacco Use Status Never used Tobacco 05/08/25 08:31 e-Cigarette/Vaping Use Never Used 05/08/25 08:31 PHQ-9: PHQ-9 Score PHQ-9: Total score 0 05/14/25 22:18 Depression Screening Interpretation: Negative Thrive Assessment: Date of Thrive Assessment Date Thrive assessed 05/08/25 05/08/25 08:31 Coding Level of Care Code Established Pt Est Pt Level 4 (98626) Patient Type Established Diagnoses Primary hypertension I10 Hypertension type: primary hypertension High cholesterol E78.00 Lumbar back pain with radiculopathy affecting lower extremity M54.16 Primary insomnia F51.01 Insomnia type: primary GERD without esophagitis K21.9 Iron deficiency anemia due to chronic blood loss D50.0 Iron deficiency anemia type: chronic blood loss Neuropathy G62.9 Time Spent (min) 30 Comment Time spent on chart review, medication reconciliation, H&P, patient education, orders Assessment & Plan Assessment & Plan (1) Hypertension: Comment: BP today was 128/80 Code(s): I10 - Essential (primary) hypertension Category: Medical Qualifiers: Hypertension type: primary hypertension Qualified Code(s): I10 - Essential (primary) hypertension Plan: The patient is on Metoprolol and Losartan for hypertension, with no changes in her regimen discussed during this visit. (2) High cholesterol: Code(s): E78.00 - Pure hypercholesterolemia, unspecified Category: Medical Plan: The patient continues on cholesterol-lowering medication for hyperlipidemia, with no changes in her regimen discussed during this visit. Recent labs were good (3) Lumbar back pain with radiculopathy affecting lower extremity: Code(s): M54.16 - Radiculopathy, lumbar region Category: Medical Plan: The patient is scheduled to see a neurosurgeon for further evaluation and management of her bulging intervertebral discs, which have been exacerbated by lifting heavy objects. The plan includes assessing the need for surgical intervention, particularly focusing on the lumbar and thoracic regions where the symptoms are most pronounced. (4) Insomnia: Code(s): G47.00 - Insomnia, unspecified Category: Medical Qualifiers: Insomnia type: primary Qualified Code(s): F51.01 - Primary insomnia Plan: The patient has been taking Zolpidem 10 mg at bedtime for insomnia, which began following the of her son. She is advised to monitor for potential dependency and to consider skipping doses occasionally to prevent tolerance. Patient to follow up in 3-4 months or sooner if symptoms persist or worsen. (5) GERD without esophagitis: Code(s): K21.9 - Gastro-esophageal reflux disease without esophagitis Category: Medical Plan: Controlled on Esomeprazole. Patient will continue current medications. Will monitor. Patient will follow up in 3-4 months. (6) Iron deficiency anemia: Code(s): D50.9 - Iron deficiency anemia, unspecified Category: Medical Qualifiers: Iron deficiency anemia type: chronic blood loss Qualified Code(s): D50.0 - Iron deficiency anemia secondary to blood loss (chronic) Plan: The patient's iron deficiency anemia is managed with iron supplements, and her hemoglobin and hematocrit levels are within normal range. (7) Neuropathy: Code(s): G62.9 - Polyneuropathy, unspecified Category: Medical Plan: The patient's burning neuropathy, resulting from previous cancer treatment, is managed with Gabapentin 600 mg, taken in divided doses. She is advised to continue this regimen and monitor for any changes in symptoms. Plan I discussed with the patient the importance of monitoring her response to Zolpidem and the potential for dependency. We also reviewed her current medication regimen for hypertension and hyperlipidemia, ensuring she has adequate refills. I advised her to follow up with the neurosurgeon to determine the appropriate management plan for her spinal issues. We will reconvene in three to four months to assess her progress and any changes in her condition. Medications: New zolpidem 10 mg PO BEDTIME 30 tabs 3RF for insomnia Discontinued zolpidem Discontinued Reason: Doctor's Order 10 mg PO BEDTIME PRN 30 tabs 0RF Insomnia G47.00 - Insomnia, unspecified Patient Instructions: - Monitor for any side effects or dependency on Zolpidem and consider skipping doses occasionally. - Continue current medication regimen for hypertension and hyperlipidemia. - Follow up with the neurosurgeon as scheduled to discuss potential surgical interventions for spinal issues. - Schedule a follow-up appointment in three to four months to reassess condition and treatment plan.
== END 2025-05-08 12:06 | disposition home or self-care (01) ==
LOC: HO.HMCHD 11:32
PROVIDERS: PCP Internal Medicine; Visit Provider Physician Assistant Medical
DX: I10 Essential (primary) hypertension (principal); E78.00 Pure hypercholesterolemia, unspecified; M54.16 Radiculopathy, lumbar region; F51.01 Primary insomnia; K21.9 Gastro-esophageal reflux disease without esophagitis; D50.0 Iron deficiency anemia secondary to blood loss (chronic); G62.9 Polyneuropathy, unspecified

== ENCOUNTER → 2025-05-08 11:32 | Outpatient (BNVA) | payer MEDICARE, SELFPAY | PROVIDERS: PCP Internal Medicine; Visit Provider Physician Assistant Medical | DX: I10 Essential (primary) hypertension (principal); E78.00 Pure hypercholesterolemia, unspecified; M54.16 Radiculopathy, lumbar region; F51.01 Primary insomnia; K21.9 Gastro-esophageal reflux disease without esophagitis; D50.0 Iron deficiency anemia secondary to blood loss (chronic); G62.9 Polyneuropathy, unspecified; Z79.899 Other long term (current) drug therapy; Z13.31 Encounter for screening for depression; Z13.39 Encounter for screening examination for other mental health and behavioral disorders | CPT/HCPCS: 96127; 99212 ==

== ENCOUNTER 2025-05-12 10:31 | Outpatient (AMB) | payer MEDICARE, SELFPAY ==
[2025-05-12 10:38] VITALS: BMI 27.9
--- NOTE | 2025-05-12 10:38 | A.SPINEOV_ITS ---
Vital Signs 05/12/25 10:38 Height 5 ft 7 in Weight 178 lb BMI 27.9 Intake Visit Reasons: LBP & Left leg pain Intake Note: Ms. Prescott is here today c/o left leg pain and thoracic to neck pain. 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 HPI: This 79-year-old female had a cervical fusion and lumbar fusion done at [facility] approximately 8 years ago. She is still having neck pain radiating to her head and midthoracic pain that comes intermittently. Her main complaint today is pain radiating down her left leg. It radiates to the front of her thigh and anterior cool. The pain started in the middle of March and is not improving. The pain is constant but walking and activity increases her symptoms. She takes extra-strength Tylenol and ibuprofen and gabapentin. 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 The following conservative treatment options were tried without success antiinflammatories, tylenol, physician guided home exercise plan, cortisone shots PMH: Colon carcinoma 15 years ago, hypertension, hypercholesterolemia Medications: Losartan, atorvastatin, metoprolol, iron, gabapentin 600 mg q.4, extra-strength Tylenol and ibuprofen Allergies: NKDA Social history: . Nonsmoker Physical Exam: Pleasant female. Height 5'7 weight 178 lb. She ambulates with a walker. Straight leg raise is negative. No motor or sensory deficits. No signs of myelopathy. Radiological Studies: MRI of the lumbar spine done at [facility] on 04/09/2025 shows status post L5-S1 lumbar fusion. More importantly there is severe left L4 foraminal stenosis above the fusion. MRI of the cervical spine shows most abnormalities at C4-C5 with a bone spur impinging the spinal cord. There was still spinal fluid around the spinal cord. Impression/Plan: This patient is suffering from a left L4 radiculopathy. An x- ray of the lumbar spine shows significant lumbar degenerative scoliosis above the previous fusion. I offered her a left L4-5 facetectomy and extension of the previous fusion on the left side to L4 with instrumentation. She is tentatively scheduled for 06/28/2025. Thank you for allowing me to participate in your patients care. total time spent was 50 minutes in counseling ,coordination of plan, personal review of imaging, surgical decision making and subsequent plan Julio Irizarry MD, PhD Spine Fellowship Trained Neurosurgeon Director, [facility] Orders: Orders XR lumbar spine 2-3V Today M54.16 - Radiculopathy, lumbar region Coding Level of Care Code New Pt Level 4 (00305) Diagnoses Lumbar back pain with radiculopathy affecting lower extremity M54.16
== END 2025-05-12 12:44 | disposition home or self-care (01) ==
LOC: HO.HNS 10:32
PROVIDERS: PCP Internal Medicine; Visit Provider Neurological Surgery
DX: M54.16 Radiculopathy, lumbar region (principal)
CPT/HCPCS: 99204

== ENCOUNTER 2025-05-12 10:31 | Outpatient (REF) | payer MEDICARE, SELFPAY ==
--- NOTE | ~2025-05-12 | XR_ITS ---
EXAMINATION: XR LUMBOSACRAL SPINE CLINICAL INFORMATION: M54.16 - Radiculopathy, lumbar region COMPARISON: MR lumbar 04/09/2025. TECHNIQUE: Three views of the lumbosacral spine. FINDINGS: There is osteopenia. There is a severe levoconvex scoliosis, apex at L3. There is a rotatory component. There has been posterior fusion of L5-S1 with transpedicular screws and posterior connecting rods. The hardware appears intact and well seated. Disc prosthesis in L5-S1. There are no fractures or compression deformities. No suspicious bone lesions. Severe multilevel disc degeneration present, with relative sparing of L4-5. Sclerosis of the endplates present at L1-2, and L2-3. There is multilevel hypertrophic degenerative facet change bilaterally. Soft tissues demonstrate vascular calcifications. There is a hiatus hernia in the retrocardiac region. XR/XR lumbar spine 2-3V IMPRESSION: 1. Moderate to severe levoconvex scoliosis with rotatory component. 2. Advanced multilevel spondylosis. No acute bony abnormality. 3. Posterior fusion of L5-S1 without complication. Electronically signed by: Trung Felix MD 05/12/2025 01:04 PM EDT
== END 2025-05-12 10:32 | disposition home or self-care (01) ==
LOC: HO.HOSX 10:31
PROVIDERS: PCP Internal Medicine; Visit Provider Neurological Surgery
DX: M54.16 Radiculopathy, lumbar region (principal)
CPT/HCPCS: 72100; 99202

== ENCOUNTER → 2025-05-12 11:21 | Outpatient (BNV) | payer MEDICARE, SELFPAY | PROVIDERS: PCP Internal Medicine; Visit Provider Radiology Diagnostic Radiology | DX: M41.86 Other forms of scoliosis, lumbar region (principal); M47.26 Other spondylosis with radiculopathy, lumbar region; Z98.1 Arthrodesis status | CPT/HCPCS: 72100 ==

== ENCOUNTER 2025-06-06 15:32 | Outpatient (REF) | payer MEDICARE, SELFPAY ==
--- NOTE | ~2025-06-06 | XR_ITS ---
EXAMINATION: XR CHEST CLINICAL INFORMATION: T17.908A - Unspecified foreign body in respiratory tract, part unspecifi... COMPARISON: March 02, 2022 TECHNIQUE: 2 views of the chest were obtained. FINDINGS: Right-sided Port-A-Cath terminates in superior vena cava. Heart size is normal. There is retrocardiac density with air-fluid level likely represents a hiatal hernia. There is linear atelectasis in the lateral lung base, new since the prior. Lungs are clear otherwise.. XR/XR chest 2V IMPRESSION: Moderate size hiatal hernia. Linear atelectasis lateral left lung base. Electronically signed by: Jose Dale MD 06/06/2025 05:07 PM EDT
== END 2025-06-06 15:33 | disposition home or self-care (01) ==
LOC: HO.XRAY 15:32
PROVIDERS: PCP Internal Medicine; Visit Provider Physician Assistant Medical
DX: J69.0 Pneumonitis due to inhalation of food and vomit (principal); R05.9 Cough, unspecified; M54.16 Radiculopathy, lumbar region; T17.908A Unspecified foreign body in respiratory tract, part unspecified causing other injury, initial encounter; W44.9XXA Unspecified foreign body entering into or through a natural orifice, initial encounter; Y93.9 Activity, unspecified; Y92.9 Unspecified place or not applicable; Y99.9 Unspecified external cause status
CPT/HCPCS: 71046; 96127; 99212

== ENCOUNTER 2025-06-06 15:32 | Outpatient (AMB) | payer MEDICARE, SELFPAY ==
[2025-06-06 15:10] VITALS: BP 132/90; PULSE 72; TEMP 36.6; O2SAT 99; BMI 28.8
--- NOTE | 2025-06-06 15:10 | A.OFFPC_ITS ---
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 Required: No Accompanied by: Self / Same As Patient Allergies No Known Allergies Allergy (Verified 06/06/25 15:10) Medication List - Last Reconciled 06/19/25 by PRABHU Alan acetaminophen (Tylenol Extra Strength) 500 mg PO Q4H amoxicillin-pot clavulanate 875-125 mg 1 tab PO BID atorvastatin 1 tab PO DAILY azithromycin (Zithromax Z-Chadd) For 250 mg dose pack: take 500 mg today (day 1), then 250 mg for 4 days (days 2-5) PO docusate sodium (Colace) 100 mg PO DAILY PRN esomeprazole magnesium 40 mg PO DAILY ferrous sulfate 324 mg PO DAILY gabapentin 400 mg PO Q4-6H PRN gabapentin 200 - 300 mg (2 - 3 x 100 mg) PO Q4-6H PRN losartan 50 mg PO BID metoprolol succinate ER 1 tab PO DAILY zolpidem 10 mg PO BEDTIME Tobacco use date assessed: 06/06/25 Fall risk assessment: No Falls in past year Last assessed Fall Risk: 06/06/25 Dental Screening Dental Screen Date: 06/06/25 Did you have a dental visit in the last 12 months?: Yes Did you have a dental problem in the last 6 months where you did not have access to dental care?: No HPI HPI Comments History of Present Illness Details The patient is a 79-year-old female with HTN, HLD, GERD, Insomnia, Anemia, History of colon cancer and low back pain presenting with aspiration pneumonia following an episode of aspiration related to a hiatal hernia. The aspiration occurred on Thursday night, two days ago and her , a retired doctor, noted rales in the lower left lobe upon auscultation. She reports that the cough is not productive, and the sensation is primarily in her throat. The patient has a history of spinal issues, including a scheduled surgery for her lumbar spine on June 28 and future cervical spine surgery due to bulging discs in the thoracic region. She previously underwent cervical and lumbar laminectomies eight years ago following a fall, which involved the placement of hardware such as screws and plates. Patient was informed and verbally consented to the use of an ambient scribe for clinic note documentation during this visit. [facility] Medical History (Updated 06/19/25 @ 00:29 by PRABHU Alan) Aspiration into respiratory tract Aspiration pneumonia Cecum cancer Cervical pain (neck) Fall GERD without esophagitis Hemorrhoids Hemorrhoids with complication High cholesterol Hypertension Iron deficiency anemia Lumbar back pain with radiculopathy affecting lower extremity Neuropathy Surgical History History of cervical spinal surgery History of esophagogastroduodenoscopy (EGD) History of lumbar surgery Hx of colonoscopy (~03/20/17) Hx of local excision of skin lesion (06/30/23) Family History Sister Mesothelioma Mother No problems noted. Father No problems noted. Social History Household Members: Spouse Housing: House Do you presently have visiting nurse or other home services: No Alcohol intake: never Patient Tobacco Use Status: Never used Tobacco e-Cigarette/Vaping Use: Never Used Advance Directives Date on File: 03/03/22 service: No Current occupational status: retired Cognitive needs: Yes (walker) Hearing needs: No Vision needs: No Questionnaire PHQ-9 Over the last 2 weeks, how often have you been bothered by any of the following problems? 1. Little interest or pleasure in doing things: not at all 2. Feeling down, depressed, or hopeless: not at all 3. Trouble falling or staying asleep, or sleeping too much: not at all 4. Feeling tired or having little energy: not at all 5. Poor appetite or overeating: not at all 6. Feeling bad about yourself - or that you are a failure or have let yourself or your family down: not at all 7. Trouble concentrating on things, such as reading the newspaper or watching television: not at all 8. Moving or speaking so slowly that other people could have noticed. Or the opposite - being so fidgety or restless that you have been moving around a lot more than usual: not at all 9. Thoughts that you would be better off or of hurting yourself in some way: not at all Total score: 0 Depression Screening Interpretation: Negative Depression Screening Done: Yes Source: Developed by Drs. Byron Velasquez, Nii Wagner and colleagues, with an educational jaki from [employer]. Thrive Questionnaire Date Thrive assessed: 05/08/25 I am a: Patient Within the past 12 months, did the food you bought not last and you didn't have the money to get more?: Never true Within the past 12 months, did you worry whether your food would run out before you got money to buy more?: Never true Do you have trouble paying for medicines?: No Do you have trouble getting transportation to medical appointments?: No Do you have trouble paying your heating and electricity bill?: No Do you have trouble taking care of your child, family member or friend?: No Do you have trouble with day-to-day activities such as bathing, preparing meals, shopping, managing finances, etc.?: No Are you currently unemployed and looking for a job?: No Are you interested in more education?: No THRIVE Score: 0 AUDIT C Alcohol Use Questionnaire (AUDIT-C) 1. How often do you have a drink containing alcohol?: Never 3. How often do you have six or more drinks on one occasion?: Never Total Score: 0 SEAN-7 AMB Questionnaire SEAN-7 Date SEAN - 7 assessed: 06/06/25 Feeling nervous, anxious, or on edge: 0 = Not at all Not being able to stop or control worryin = Not at all Worrying too much about different things: 0 = Not at all Trouble relaxin = Not at all Being so restless that it is hard to sit still: 0 = Not at all Becoming easily annoyed or irritable: 0 = Not at all Feeling afraid as if something awful might happen: 0 = Not at all Total SEAN-7 score (0-4 normal; 5-9 mild; 10-14 moderate; 15-21 severe): 0 Source: Developed by Drs. Byron Velasquez, Nii Wagner and colleagues, with an educational jaki from [employer]. Review of Systems Const Details: CONSTITUTIONAL No fever HEAD/NECK Neck pain EAR/NOSE/MOUTH/THROAT Negative RESPIRATORY Reports non-productive cough, sensation in throat CARDIOVASCULAR Negative MUSCULOSKELETAL back pain NEUROLOGICAL Negative PSYCHIATRIC Negative Physical exam (Primary Care) Vital Signs: Last Vital Signs Temp 97.9 F 06/06/25 15:10 Pulse 72 06/06/25 15:10 BP 132/90 H 06/06/25 15:10 Pulse Ox 99 06/06/25 15:10 Oxygen Delivery Method Room Air 06/06/25 15:10 BMI result Body Mass Index 28.8 GENERAL Well developed, Well nourished, in no apparent distress HEENT Head-Normocephalic Eyes- PERRLA, EOMI, Conjuctiva clear, lids WNL Ears- Canals clear, TMs WNL Mouth/Throat-No lesions, no erythema, no exudate Neck- Supple, No lymphadenopathy, thyroid WNL RESPIRATORY Normal I:E, rhonchi, no rales or wheezes CARDIOVASCULAR Regular, rate and rhythm, No murmurs or rubs MUSCULOSKELETAL Back- tender in lumbar Joints- no swelling or deformity NEUROLOGICAL Gait slow with walker PSYCHIATRIC Oriented to person, place and time Mood and affect WNL Appearance WNL Speech WNL Thought processes WNL Tobacco/Smoking Status: Tobacco use Status Tobacco use date assessed 06/06/25 06/06/25 15:11 Patient Tobacco Use Status Never used Tobacco 06/06/25 15:11 e-Cigarette/Vaping Use Never Used 06/06/25 15:11 PHQ-9: PHQ-9 Score PHQ-9: Total score 0 06/06/25 15:41 Depression Screening Interpretation: Negative Thrive Assessment: Date of Thrive Assessment Date Thrive assessed 05/08/25 06/06/25 15:11 Coding Level of Care Code Established Pt Est Pt Level 3 (40694) Patient Type Established Diagnoses Aspiration pneumonia J69.0 Lumbar back pain with radiculopathy affecting lower extremity M54.16 Time Spent (min) 25 Comment Time spent on chart review, H&P, patient education and orders. Assessment & Plan Assessment & Plan (1) Aspiration pneumonia: Code(s): J69.0 - Pneumonitis due to inhalation of food and vomit Category: Medical Plan: The plan for aspiration pneumonia includes initiating treatment with Augmentin twice daily for 10 days and Zithromax with a loading dose followed by a four-day course. A chest x-ray is recommended to confirm the diagnosis and assess the extent of fluid accumulation. Follow-up imaging may be necessary depending on the patient's response to antibiotics. (2) Lumbar back pain with radiculopathy affecting lower extremity: Code(s): M54.16 - Radiculopathy, lumbar region Category: Medical Plan: The patient is scheduled for lumbar spine surgery on June 28, with future plans for cervical spine surgery due to thoracic disc bulging. Plan I discussed with the patient the likelihood of aspiration pneumonia and the need for a chest x-ray to confirm the diagnosis and evaluate fluid accumulation. We agreed on a treatment plan involving Augmentin and Zithromax to address potential bacterial resistance. The patient was informed about the importance of follow-up imaging to ensure resolution of the pneumonia. Orders: Orders XR chest 2V 06/06/25 T17.908A - Unspecified foreign body in respiratory tract, part unspecified causing other injury, initial encounter, W44.9XXA - Unspecified foreign body entering into or through a natural orifice, initial encounter Medications: New amoxicillin-pot clavulanate 875-125 mg 1 tab PO BID 20 tabs 0RF azithromycin (Zithromax Z-Chadd) For 250 mg dose pack: take 500 mg today (day 1), then 250 mg for 4 days (days 2-5) PO 6 tabs 0RF Refilled losartan 50 mg PO BID 90 tabs 1RF Patient Instructions: - Take Augmentin twice daily for 10 days. - Take Zithromax as directed: two pills today, then one pill daily for four days. - Go for a chest x-ray as soon as possible. - Follow up with the doctor if symptoms do not improve or worsen.
== END 2025-06-06 16:08 | disposition home or self-care (01) ==
LOC: HO.HMCHD 15:33
PROVIDERS: PCP Internal Medicine; Visit Provider Physician Assistant Medical
DX: J69.0 Pneumonitis due to inhalation of food and vomit (principal); M54.16 Radiculopathy, lumbar region

== ENCOUNTER → 2025-06-06 16:29 | Outpatient (BNV) | payer MEDICARE, SELFPAY | PROVIDERS: PCP Internal Medicine; Visit Provider Radiology Diagnostic Radiology | DX: J98.11 Atelectasis (principal) | CPT/HCPCS: 71046 ==